=== PATIENT | male | born 1985 | race Two or more races ===

== ENCOUNTER 2016-04-25 08:23 | Emergency (ER) | payer BC ==
[2016-04-25] MEDS ORDERED: ASPIRIN 81 MG CHEW TABLET As Ordered ONE (09:08)
--- NOTE | 2016-04-25 09:50 | REP ---
Clinical: Chest pain . Comparison: None . Technique: PA and lateral. Findings: The mediastinum and cardiac silhouette are normal. The lung morales are clear and without acute consolidation, effusion, or pneumothorax. The skeletal structures are intact and normal. Impression: 1. No acute cardiopulmonary process. Signed by Emmanuel Serrano MD 04/25/2016 09:41 A
[2016-04-25 10:01] LABS: BASO % 0.7 % (0.0-1.0); EOS # 0.1 K/mm3 (0.0-0.50); EOS % 2.2 % (0.0-3.0); LARGE UNSTAINED CELL # 0.1 K/mm3 (0.0-0.4); LYMPH # 1.8 K/mm3 (1.5-4.5); LYMPH % 29.8 % (24.0-44.0); MEAN CORPUSCULAR HEMOGLOBIN 29.7 pg (27.0-33.0); MEAN CORPUSCULAR HGB CONC 33.5 g/dl (32.0-36.5); MEAN CORPUSCULAR VOLUME 88.4 fl (80.0-96.0); MONO # 0.5 K/mm3 (0.0-0.8); MONO % 8.4 % (0.0-5.0); NEUTROPHILS # 3.5 K/mm3 (1.8-7.7); NEUTROPHILS % 56.9 % (36.0-66.0); PLATELET COUNT, AUTOMATED 190 k/mm3 (150-450); RED CELL DISTRIBUTION WIDTH 12.3 % (11.5-14.5); WHITE BLOOD COUNT 6.1 K/mm3 (4.0-10.0)
[2016-04-25 10:02] LABS: ALBUMIN 3.8 GM/DL (3.2-5.2); ALBUMIN/GLOBULIN RATIO 1.15 (1.00-1.93); BILIRUBIN,DIRECT 0.2 MG/DL (0.0-0.2); BILIRUBIN,TOTAL 0.9 MG/DL (0.2-1.0); TOTAL PROTEIN 7.1 GM/DL (6.4-8.2)
[2016-04-25 10:03] LABS: ANION GAP 7 MEQ/L (8-16); BLOOD UREA NITROGEN 11 MG/DL (7-18); CALCIUM LEVEL 8.7 MG/DL (8.5-10.1); CARBON DIOXIDE LEVEL 28 MEQ/L (21-32); CHLORIDE LEVEL 107 MEQ/L (98-107); CREATININE FOR GFR 0.77 MG/DL (0.70-1.30); GLOMERULAR FILTRATION RATE > 60.0 (>60); GLUCOSE, FASTING 90 MG/DL (70-105); SODIUM LEVEL 142 MEQ/L (136-145)
--- NOTE | 2016-04-25 10:06 | REP ---
Clinical: Radiculopathy. Technique: AP, lateral, flexion/extension, swimmer's, bilateral oblique and open mouth views of the cervical spine. Findings: Alignment is maintained. No acute fracture / compression injury or subluxation. Vertebral bodies and disc spaces appear normal for age. Spinous processes are intact. Oblique views demonstrate patent neural foramen. Open mouth view demonstrates normal C1-C2 articulation and odontoid process. Impression: Normal cervical spine series. Signed by Emmanuel Serrano MD 04/25/2016 09:57 A
[2016-04-25] MEDS ORDERED: PANTOPRAZOLE 40MG INJ (PROTONIX) (C9113) As Ordered ONE (10:18)
--- NOTE | 2016-04-25 13:35 | EDDOCDS ---
Physician Documentation [facility] Name: Richi Gorman Age: 30 yrs Sex: Male : 1985 Arrival Date: 04/25/2016 Time: 08:23 Bed 15 Private MD: Brenna Collins L. Disposition: 04/25 13:07 Critical Care: Critical care not applicable. pc Disposition: 04/25/16 13:08 Discharged to Home/Self Care. Impression: Chest pain, unspecified. - Condition is Stable. - Discharge Instructions: Nonspecific Chest Pain. - Prescriptions for Protonix 40 mg Oral Tablet - take 1 tablet by ORAL route once daily; 30 tablet. - Medication Reconciliation, Local Pharmacy Hours, Work Release Form - 1 day form. - Follow up: Santiago Belle MD; When: Call to arrange an appointment; Reason: Further diagnostic work-up, To establish care. Follow up: Brenna Collins; When: Call to arrange an appointment; Reason: Continuance of care. - Problem is an ongoing problem. - Symptoms have improved. HPI: 09:05 This 30 yrs old Other Male presents to ER via Walkin/Carried/Asstd with complaints of pc Chest Pain. 09:05 The history is obtained from the patient. Symptoms began He has been having a pc tightening feeling in his throat and upper chest for 2 weeks, lasting from hours to full days. He does not describe any relation to exertion. He has symptoms at night as well as during the day. He denies any SOB or SOBOE, denies nausea or diaphoresis. Today, he awoke with chest and pressure radiating into his left arm. . The patient's known risk factors for coronary artery disease include: a family history of coronary artery disease. The patient has not recently seen a physician. Historical: - Allergies: PENICILLINS; Erythromycin; Rhinocort Aqua; SULFA (SULFONAMIDES); - Home Meds: 1. none - PMHx: none; - PSHx: Tubes in ears; - The history from nurses notes was reviewed: and I agree with what is documented. - Social history: Smoking status: Patient uses tobacco products, heavy tobacco smoker. No barriers to communication noted, The patient speaks fluent Nauruan, Speaks appropriately for age. - Family history: Pertinent for heart disease, hypertension, hypercholesterolemia. - : The pt / caregiver states he / she is not on anticoagulants. Home medication list is obtained from the patient. - Hospitalizations: : No recent hospitalization is reported. - Exposure Risk Screening:: None identified. - Immunization history:: All immunizations up-to-date. - Social history:: the patient is a non-smoker, the patient does not drink alcohol. ROS: 09:05 All systems are negative except as listed. The cardiovascular, respiratory, pc gastrointestinal and neurological components are also addressed in the HPI. Exam: 09:05 General Appearance: alert, no acute distress. pc 09:05 ENT: ear, nose and throat normal, pharynx normal. 09:05 Neck: supple, non-tender, no masses are appreciated, no carotid bruits. 09:05 Respiratory: no respiratory distress, normal breath sounds, chest non-tender. 09:05 Cardiovascular: regular pulse rate, regular heart rhythm, normal heart sounds, equal and full pulses bilaterally. 09:05 Abdomen: soft, non-tender, no organomegaly, normal bowel sounds. 09:05 Skin: skin color is normal, warm, dry. 09:05 Extremities: The extremities have a grossly normal appearance, are non-tender, without acute ROM abnormalities. 09:05 Neuro: alert, oriented to person, place and time, cranial nerves normal as tested, no motor deficits, no sensory deficits. 09:05 Psych: normal mood. Vital Signs: 08:31 BP 117 / 68 (auto/); ck1 08:33 Pulse 78 MON; Pulse Ox 98% ; ck1 08:37 BP 117 / 68; Pulse 77; Resp 18; Temp 96.8(T); Pulse Ox 98% on R/A; Weight 149.69 kg / ck1 330.01 lbs (R); Height 6 ft. 0 in. (182.88 cm); Pain 4/10; 08:55 BP 134 / 90 (auto/); ck1 08:55 Pulse 66 MON; Pulse Ox 97% ; ck1 09:01 BP 131 / 86 (auto/); ck1 09:01 Pulse 70 MON; Pulse Ox 97% ; ck1 09:16 BP 127 / 68 (auto/); ck1 09:16 Pulse 82 MON; Pulse Ox 97% ; ck1 09:32 BP 131 / 76 (auto/); ck1 09:32 Pulse 68 MON; Pulse Ox 98% ; ck1 09:46 BP 135 / 85 (auto/); ck1 09:46 Pulse 72 MON; Pulse Ox 97% ; ck1 10:01 Pulse 72 MON; Pulse Ox 97% ; ck1 10:01 BP 120 / 66 (auto/); ck1 10:16 BP 116 / 74 (auto/); ck1 10:16 Pulse 66 MON; Pulse Ox 96% ; ck1 10:31 BP 114 / 58 (auto/); ck1 10:31 Pulse 68 MON; Pulse Ox 98% ; ck1 11:01 BP 116 / 56 (auto/); ml6 11:01 Pulse 72 MON; Resp 16; Pulse Ox 97% on R/A; Pain 0/10; ml6 11:16 BP 114 / 55 (auto/); ml6 11:16 Pulse 66 MON; Resp 16; Pulse Ox 98% on R/A; ml6 11:31 BP 127 / 55 (auto/); ml6 11:31 Pulse 62 MON; Resp 16; Pulse Ox 96% on R/A; ml6 12:00 BP 131 / 68 (auto/); ml6 12:00 Pulse 72 MON; Resp 16; Pulse Ox 98% on R/A; ml6 12:16 BP 113 / 56 (auto/); ml6 12:16 Pulse 62 MON; Resp 16; Pulse Ox 98% on R/A; Pain 0/10; ml6 12:31 BP 115 / 60 (auto/); js13 12:31 Pulse 64 MON; Pulse Ox 98% ; js13 12:45 Pulse 68 MON; Pulse Ox 97% ; js13 12:46 BP 122 / 66 (auto/); js13 13:01 BP 122 / 58 (auto/); js13 13:01 Pulse 66 MON; Resp 16; Temp 97.1(O); Pulse Ox 96% on R/A; js13 08:37 Body Mass Index 44.76 (149.69 kg, 182.88 cm) ck1 MDM: 08:31 ECG WITH READING ER PHYS+CARDIAG ordered. EDMS 09:03 Aspirin Chewable Tablet 324 mg PO once ordered. pc 09:03 Dewaterer Operator/Pulse Ox/q 30 min VS ordered. pc 09:03 IV Saline Lock ordered. pc 09:03 Rhythm Strip to chart ordered. pc 09:04 Chest, 2 View (pa\E\lat) Ordered. EDMS 09:04 Basic Metabolic Profile Ordered. EDMS 09:04 CBC with Diff Ordered. EDMS 09:04 Cardiac Injury Profile Ordered. EDMS 09:04 Troponin Ordered. EDMS 09:04 Liver Profile Ordered. EDMS 09:04 Lipase Ordered. EDMS 09:05 Differential diagnosis: coronary artery disease esophagitis, gastroesophageal reflux pc disease (GERD), unstable angina, cervical radiculopathy. Plan: labs, EKG, meds, imaging. The patient was medicated with aspirin in the Emergency Department. 09:06 Spine, Cervical Ordered. EDMS 09:09 Test interpretation: EKG. pc 09:46 Financial registration complete. lg 10:16 Basic Metabolic Profile Reviewed. pc 10:16 CBC with Diff Reviewed. pc 10:16 Cardiac Injury Profile Reviewed. pc 10:16 Troponin Reviewed. pc 10:16 Liver Profile Reviewed. pc 10:16 Lipase Reviewed. pc 10:16 Chest, 2 View (pa\E\lat) Reviewed. pc 10:17 pantoprazole 40 mg IV at bolus once ordered. pc 10:17 Redraw CIP &Troponin (put time in details section) ordered. pc 10:17 Repeat EKG (put time details section) ordered. pc 10:29 Redraw CIP &Troponin (put time in details section) complete. deg 10:29 Repeat EKG (put time details section) complete. deg 10:30 CARDIAC MARKER PANEL Ordered. EDMS 10:31 ECG WITH READING ER PHYS ordered. EDMS 11:02 [facility] Payment Agreement was scanned into evolso and attached to record. lg 12:11 Test interpretation: EKG. pc 12:51 CARDIAC MARKER PANEL Reviewed. pc 12:51 Spine, Cervical Reviewed. pc 13:07 Data reviewed: old medical records, vital signs, nurses notes, EKG(s), lab test pc results, all radiology studies and available results. Test interpretation: LAB - all labs as ordered have been reviewed, interpreted and considered in the overall management of the clinical presentation; X-RAY - interpreted by Radiologist and personally reviewed, 2 view chest, no acute disease. The patient has been re-examined and re-evaluated. The clinical presentation did not require any ED treatment or interventions. Physician consultation: Dr. Santiago Belle MD was contacted at 13:07, regarding patient's condition, and advises the medications/treatment as provided. and agrees with the treatment provided and advises the discharge plans as outlined. Disposition: The historical points, examination findings, and any diagnostic results supporting the provided diagnosis, were discussed with the patient or legal guardian. The need for outpatient follow up with the provider listed on their discharge instructions was discussed. They were encouraged to return to [facility], or the nearest ED, if symptoms worsen/persist, or for any other questions/concerns. EC:09 Rate is 68 beats/min. Rhythm is regular. QRS is negative in lead aVF. MS interval is pc normal. QRS interval is normal. QT interval is normal. No Q waves. T waves are Normal. No ST changes noted. Clinical impression: Normal Sinus Rhythm and borderline LAD, Mod. IVCD, nonspecific ST depressions, no priors . 12:11 Rate is 73 beats/min. Rhythm is regular, Normal Sinus Rhythm. QRS [place] is Normal. MS pc interval is normal. QRS interval is normal. QT interval is normal. No Q waves. T waves are Normal. No ST changes noted. Clinical impression: Normal Sinus Rhythm. Administered Medications: 09:10 Drug: Aspirin 324 mg [aspirin 81 mg chewable tablet (4 tabs)] Route: PO; ck1 10:23 Drug: pantoprazole 40 mg [pantoprazole 40 mg intravenous solution] Route: IV; Rate: ck1 bolus; Site: right antecubital; Signatures: Dispatcher [employer] Burke Farias MD MD pc Murray, Denise, Material Hauler Unit deg Nila Gonsalves, Reg Reg lg Leesa Jones RN RN ck1 Parul PrajapatiRN RN [id number] The chart was reviewed and I authenticate all verbal orders and agree with the evaluation and treatment provided.Corrections: (The following items were deleted from the chart) 08:43 08:41 Family history Not pertinent, ck1 ck1 Attachments: 11:02 [facility] Payment Agreement lg MTDD
--- NOTE | 2016-04-25 13:35 | EDDOCDS ---
Nurse's Notes [facility] Name: Richi Gorman Age: 30 yrs Sex: Male : 1985 Arrival Date: 04/25/2016 Time: 08:23 Bed 15 Private MD: Brenna Collins L. Diagnosis: Chest pain, unspecified Presentation: 04/25 08:36 Presenting complaint: Patient states: Onset chest pain =yesterday at 1600. Reports pain ck1 radiates to neck and left arm. Aspirin was not taken prior to arrival. Adult Sepsis Screening: The patient does not have new or worsening altered mentation. Patient's respiratory rate is less than 22. Systolic blood pressure is greater than 100. Patient has a qSOFA score of 0- Negative Sepsis Screen. Suicide/Homicide risk assessment- the patient denies having any suicidal and/or homicidal ideations and does not present with any other emotional, behavioral or mental health complaints. 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 Transition of care: patient was not received from another setting of care. 08:36 Acuity: MAVIS Level 3 ck1 08:36 Method Of Arrival: Walkin/Carried/Asstd ck1 Triage Assessment: 08:39 General: Appears in no apparent distress, obese, Behavior is appropriate for age, ck1 cooperative. Pain: Location: left arm Pain currently is 4 out of 10 on a pain scale. HIV screening NA for this visit Offered previously. Neurological: Level of Consciousness is awake, alert, obeys commands, Oriented to person, place, time. Cardiovascular: Chest pain is described as vague, radiates to left arm(s) neck episodes "couple of hours" began yesterday at 1600. Respiratory: Respiratory effort is unlabored, Respiratory pattern is regular, symmetrical. GI: Abdomen is obese, Reports nausea. Derm: Skin is pink, warm & dry. Historical: - Allergies: PENICILLINS; Erythromycin; Rhinocort Aqua; SULFA (SULFONAMIDES); - Home Meds: 1. none - PMHx: none; - PSHx: Tubes in ears; - The history from nurses notes was reviewed: and I agree with what is documented. - Social history: Smoking status: Patient uses tobacco products, heavy tobacco smoker. No barriers to communication noted, The patient speaks fluent Malawian, Speaks appropriately for age. - Family history: Pertinent for heart disease, hypertension, hypercholesterolemia. - : The pt / caregiver states he / she is not on anticoagulants. Home medication list is obtained from the patient. - Hospitalizations: : No recent hospitalization is reported. - Exposure Risk Screening:: None identified. - Immunization history:: All immunizations up-to-date. - Social history:: the patient is a non-smoker, the patient does not drink alcohol. Screenin:41 Screening information is obtained from the patient. Fall risk: No risks identified. ck1 Assistance ADL's: requires no assistance with activities of daily living. Abuse/DV Screen: The patient / caregiver reports he/she is: not in a situation that causes fear, pain or injury. Nutritional screening: No deficits noted. Advance Directives: Currently, there is no health care proxy. home support is adequate. Assessment: 08:41 General: see triage note. ck1 09:35 General: Appears in no apparent distress, comfortable, Behavior is appropriate for age, ck1 cooperative, pleasant. Neurological: Level of Consciousness is awake, alert, obeys commands, Oriented to person, place, time. Cardiovascular: Rhythm is sinus rhythm. Respiratory: Respiratory effort is unlabored, Respiratory pattern is regular, symmetrical. GI: No deficits noted. Derm: Skin is pink, warm & dry. 10:23 General: Patient is resting quietly on stretcher. Reports "fullness" in chest and up ck1 into neck 4/10. No acute distress noted, respirations easy on RA. Patient aware of repeat lab work and EKG at noon. Mother at bedside, call light in reach. Will continue to monitor patient. 11:10 General: Appears in no apparent distress, comfortable, Behavior is appropriate for age, ml6 cooperative. Pain: Denies pain. Neurological: No deficits noted. Level of Consciousness is awake, alert, Oriented to person, place, time. Cardiovascular: No deficits noted. Capillary refill < 3 seconds is brisk in bilateral fingers toes Heart tones S1 S2 present Edema is absent. Pulses are all present. Rhythm is sinus rhythm. Respiratory: No deficits noted. Airway is patent Respiratory effort is even, unlabored, Respiratory pattern is regular, symmetrical, Breath sounds are clear bilaterally. GI: No deficits noted. Abdomen is flat, non- distended Bowel sounds present X 4 quads. 13:32 General: Appears in no apparent distress, comfortable, Behavior is appropriate for age, js13 cooperative. Pain: Denies pain. Neurological: Level of Consciousness is awake, alert, obeys commands. Cardiovascular: Rhythm is sinus rhythm Chest pain is denied. Respiratory: Airway is patent Respiratory effort is even, unlabored, Respiratory pattern is regular, symmetrical. Derm: Skin is pink, warm & dry. Vital Signs: 08:31 BP 117 / 68 (auto/); ck1 08:33 Pulse 78 MON; Pulse Ox 98% ; ck1 08:37 BP 117 / 68; Pulse 77; Resp 18; Temp 96.8(T); Pulse Ox 98% on R/A; Weight 149.69 kg ck1 (R); Height 6 ft. 0 in. (182.88 cm); Pain 4/10; 08:55 BP 134 / 90 (auto/); ck1 08:55 Pulse 66 MON; Pulse Ox 97% ; ck1 09:01 BP 131 / 86 (auto/); ck1 09:01 Pulse 70 MON; Pulse Ox 97% ; ck1 09:16 BP 127 / 68 (auto/); ck1 09:16 Pulse 82 MON; Pulse Ox 97% ; ck1 09:32 BP 131 / 76 (auto/); ck1 09:32 Pulse 68 MON; Pulse Ox 98% ; ck1 09:46 BP 135 / 85 (auto/); ck1 09:46 Pulse 72 MON; Pulse Ox 97% ; ck1 10:01 Pulse 72 MON; Pulse Ox 97% ; ck1 10:01 BP 120 / 66 (auto/); ck1 10:16 BP 116 / 74 (auto/); ck1 10:16 Pulse 66 MON; Pulse Ox 96% ; ck1 10:31 BP 114 / 58 (auto/); ck1 10:31 Pulse 68 MON; Pulse Ox 98% ; ck1 11:01 BP 116 / 56 (auto/); ml6 11:01 Pulse 72 MON; Resp 16; Pulse Ox 97% on R/A; Pain 0/10; ml6 11:16 BP 114 / 55 (auto/); ml6 11:16 Pulse 66 MON; Resp 16; Pulse Ox 98% on R/A; ml6 11:31 BP 127 / 55 (auto/); ml6 11:31 Pulse 62 MON; Resp 16; Pulse Ox 96% on R/A; ml6 12:00 BP 131 / 68 (auto/); ml6 12:00 Pulse 72 MON; Resp 16; Pulse Ox 98% on R/A; ml6 12:16 BP 113 / 56 (auto/); ml6 12:16 Pulse 62 MON; Resp 16; Pulse Ox 98% on R/A; Pain 0/10; ml6 12:31 BP 115 / 60 (auto/); js13 12:31 Pulse 64 MON; Pulse Ox 98% ; js13 12:45 Pulse 68 MON; Pulse Ox 97% ; js13 12:46 BP 122 / 66 (auto/); js13 13:01 BP 122 / 58 (auto/); js13 13:01 Pulse 66 MON; Resp 16; Temp 97.1(O); Pulse Ox 96% on R/A; js13 08:37 Body Mass Index 44.76 (149.69 kg, 182.88 cm) ck1 Vitals: 08:37 Log In Time: April 25, 2016 at 08:38. ck1 ED Course: 08:24 Patient visited by Nila Gonsalves Reg. lg 08:24 Brenna Collins is Private Physician. lg 08:24 Patient moved to Waiting lg 08:30 Patient moved to [facility] 08:34 EKG done. (by ED staff). Reviewed by Burke Boone MD. dem1 08:37 Triage Initiated ck1 08:39 Patient visited by Armando Eli. dem1 08:41 The patient / caregiver is instructed regarding the plan of care and ED course. Cardiac ck1 monitor on. Pulse ox on. NIBP on. 08:50 Burke Boone MD is Attending Physician. pc 08:57 Inserted saline lock: 18 gauge in right antecubital area and blood collected. The ck1 patient tolerated the procedure well. by Thom coke wheeler student. 09:02 Patient visited by Burke Boone MD. pc 09:05 Patient visited by Leesa Jones,GEORGI. ck1 09:05 Lipase Sent. ck1 09:05 Liver Profile Sent. ck1 09:05 Basic Metabolic Profile Sent. ck1 09:05 CBC with Diff Sent. ck1 09:05 Cardiac Injury Profile Sent. ck1 09:05 Troponin Sent. ck1 09:10 Patient visited by Leesa JonesGEORGI. ck1 09:35 Patient visited by Leesa Jones RN. ck1 10:03 Chest, 2 View (pa\\E\\lat) Returned. EDMS 10:06 Patient visited by Leesa Jones RN. ck1 10:23 Patient visited by Leesa Jones RN. ck1 10:49 Patient visited by Leesa Jones RN. ck1 10:49 Spine, Cervical Returned. EDMS 11:02 [facility] Payment Agreement was scanned into [employer] and attached to record. lg 11:13 Patient visited by Wilberto Burger RN. ml6 11:55 Patient visited by Wilberto Burger RN. ml6 11:57 EKG done. (by ED staff). Reviewed by Burke Boone MD. dem1 12:10 Patient visited by Armando Eli. dem1 12:58 Patient visited by Wilberto Burger RN. ml6 13:01 Discontinued IV lock intact, bleeding controlled, pressure dressing applied, No js13 redness/swelling at site. No procedures done that require assistance. 13:08 Santiago Belle MD is Referral Physician. pc 13:08 Brenna Collins is Referral Physician. pc Administered Medications: 09:10 Drug: Aspirin 324 mg [aspirin 81 mg chewable tablet (4 tabs)] Route: PO; ck1 10:23 Drug: pantoprazole 40 mg [pantoprazole 40 mg intravenous solution] Route: IV; Rate: ck1 bolus; Site: right antecubital; Order Results: Lab Order: Basic Metabolic Profile; [facility] 04/25/16 08:52 Test: GLUCOSE, FASTING; Value: 90; Range: 70-105; Units: MG/DL; Status: F Test: BLOOD UREA NITROGEN; Value: 11; Range: 7-18; Units: MG/DL; Status: F Test: CREATININE FOR GFR; Value: 0.77; Range: 0.70-1.30; Units: MG/DL; Status: F Test: GLOMERULAR FILTRATION RATE; Value: > 60.0; Range: >60; Status: F Test: SODIUM LEVEL; Value: 142; Range: 136-145; Units: MEQ/L; Status: F Test: POTASSIUM SERUM; Value: 4.0; Range: 3.5-5.1; Units: MEQ/L; Status: F Test: CHLORIDE LEVEL; Value: 107; Range: 98-107; Units: MEQ/L; Status: F Test: CARBON DIOXIDE LEVEL; Value: 28; Range: 21-32; Units: MEQ/L; Status: F Test: ANION GAP; Value: 7; Range: 8-16; Abnormal: Below low normal; Units: MEQ/L; Status: F Test: CALCIUM LEVEL; Value: 8.7; Range: 8.5-10.1; Units: MG/DL; Status: F Test Note: ; Units are mL/min/1.73 m2 Chronic Kidney Disease Staging per NKF: Stage I & II GFR >=60 Normal to Mildly Decreased Stage III GFR 30-59 Moderately Decreased Stage IV GFR 15-29 Severely Decreased Stage V GFR <15 Very Little GFR Left ESRD 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 <15 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 Lab Order: CBC with Diff; SPEC'M 04/25/16 08:52 Test: WHITE BLOOD COUNT; Value: 6.1; Range: 4.0-10.0; Units: K/mm3; Status: F Test: RED BLOOD COUNT; Value: 4.92; Range: 4.30-6.10; Units: M/mm3; Status: F Test: HEMOGLOBIN; Value: 14.6; Range: 14.0-18.0; Units: g/dl; Status: F Test: HEMATOCRIT; Value: 43.5; Range: 42.0-52.0; Units: %; Status: F Test: MEAN CORPUSCULAR VOLUME; Value: 88.4; Range: 80.0-96.0; Units: fl; Status: F Test: MEAN CORPUSCULAR HEMOGLOBIN; Value: 29.7; Range: 27.0-33.0; Units: pg; Status: F Test: MEAN CORPUSCULAR HGB CONC; Value: 33.5; Range: 32.0-36.5; Units: g/dl; Status: F Test: RED CELL DISTRIBUTION WIDTH; Value: 12.3; Range: 11.5-14.5; Units: %; Status: F Test: PLATELET COUNT, AUTOMATED; Value: 190; Range: 150-450; Units: k/mm3; Status: F Test: NEUTROPHILS %; Value: 56.9; Range: 36.0-66.0; Units: %; Status: F Test: LYMPH %; Value: 29.8; Range: 24.0-44.0; Units: %; Status: F Test: MONO %; Value: 8.4; Range: 0.0-5.0; Abnormal: Above high normal; Units: %; Status: F Test: EOS %; Value: 2.2; Range: 0.0-3.0; Units: %; Status: F Test: BASO %; Value: 0.7; Range: 0.0-1.0; Units: %; Status: F Test: LARGE UNSTAINED CELL %; Value: 2.0; Range: 0.0-4.0; Units: %; Status: F Test: NEUTROPHILS #; Value: 3.5; Range: 1.8-7.7; Units: K/mm3; Status: F Test: LYMPH #; Value: 1.8; Range: 1.5-4.5; Units: K/mm3; Status: F Test: MONO #; Value: 0.5; Range: 0.0-0.8; Units: K/mm3; Status: F Test: EOS #; Value: 0.1; Range: 0.0-0.50; Units: K/mm3; Status: F Test: BASO #; Value: 0.0; Range: 0.0-0.2; Units: K/mm3; Status: F Test: LARGE UNSTAINED CELL #; Value: 0.1; Range: 0.0-0.4; Units: K/mm3; Status: F Lab Order: Cardiac Injury Profile; SPEC'M 04/25/16 08:52 Test: CPK CREATINE PHOSPHOKINASE; Value: 119; Range: 39-308; Units: U/L; Status: F Test: CK-MB VALUE MASS; Value: 1.0; Range: 0.0-3.6; Units: NG/ML; Status: F Test: MB/CK RELATIVE INDEX; Value: 0.84; Range: < OR =4; Status: F Test Note: ; DIAGNOSIS CRITERIA MMB ng/ml Relative Index (RI) NON-AMI < or = 5 N/A JIMENEZ ZONE > 5 < or = 4 AMI > 5 > 4 Lab Order: Troponin; SPEC'M 04/25/16 08:52 Test: TROPONIN I; Value: < 0.02; Range: < 0.10; Units: NG/ML; Status: F Test Note: ; Troponin I Reference Interval for [facility] LOCI: 99th Percentile= 0.00-0.045 ng/ml Risk Stratification: <= 0.10 ng/ml Decreased Risk for Adverse Clinical Events. 0.10-1.50 ng/ml Increased Risk for Adverse Clinical Events. Evaluation of additional criterion and/or repeat testing in 2-6 hours is suggested to rule out myocardial damage. >= 1.50 ng/ml Indicative of Myocardial Injury. Lab Order: Liver Profile; [facility] 04/25/16 08:52 Test: AST/SGOT; Value: 20; Range: 15-37; Units: U/L; Status: F Test: ALT/SGPT; Value: 39; Range: 12-78; Units: U/L; Status: F Test: ALKALINE PHOSPHATASE; Value: 64; Range: 45-117; Units: U/L; Status: F Test: BILIRUBIN,TOTAL; Value: 0.9; Range: 0.2-1.0; Units: MG/DL; Status: F Test: BILIRUBIN,DIRECT; Value: 0.2; Range: 0.0-0.2; Units: MG/DL; Status: F Test: TOTAL PROTEIN; Value: 7.1; Range: 6.4-8.2; Units: GM/DL; Status: F Test: ALBUMIN; Value: 3.8; Range: 3.2-5.2; Units: GM/DL; Status: F Test: ALBUMIN/GLOBULIN RATIO; Value: 1.15; Range: 1.00-1.93; Status: F Lab Order: Lipase; [facility] 04/25/16 08:52 Test: LIPASE; Value: 165; Range: 73-393; Units: U/L; Status: F Lab Order: CARDIAC MARKER PANEL; [facility] 04/25/16 12:03 Test: CPK CREATINE PHOSPHOKINASE; Value: 107; Range: 39-308; Units: U/L; Status: F Test: CK-MB VALUE MASS; Value: 1.1; Range: 0.0-3.6; Units: NG/ML; Status: F Test: MB/CK RELATIVE INDEX; Value: 1.02; Range: < OR =4; Status: F Test: TROPONIN I; Value: < 0.02; Range: < 0.10; Units: NG/ML; Status: F Test Note: ; DIAGNOSIS CRITERIA MMB ng/ml Relative Index (RI) NON-AMI < or = 5 N/A JIMENEZ ZONE > 5 < or = 4 AMI > 5 > 4 Radiology Order: Chest, 2 View (pa\\E\\lat) Test: Chest, 2 View (pa\\E\\lat) REASON FOR EXAMINATION: Chest Pain; Clinical: Chest pain .; ; Comparison: None .; ; Technique: PA and lateral.; ; Findings:; The mediastinum and cardiac silhouette are normal. The lung morales are clear and; without acute consolidation, effusion, or pneumothorax. The skeletal structures; are intact and normal.; ; Impression:; 1. No acute cardiopulmonary process.; ; ; Signed by; Emmanuel Serrano MD 04/25/2016 09:41 A; Radiology Order: Spine, Cervical Test: Spine, Cervical REASON FOR EXAMINATION: radiculopathy; Clinical: Radiculopathy.; ; Technique: AP, lateral, flexion/extension, swimmer's, bilateral oblique and open; mouth views of the cervical spine.; ; Findings:; Alignment is maintained. No acute fracture / compression injury or subluxation.; Vertebral bodies and disc spaces appear normal for age. Spinous processes are; intact. Oblique views demonstrate patent neural foramen. Open mouth view; demonstrates normal C1-C2 articulation and odontoid process.; ; Impression:; Normal cervical spine series.; ; ; Signed by; Emmanuel Serrano MD 04/25/2016 09:57 A; Outcome: 13:01 Discharge Assessment: Patient awake, alert and oriented x 3. No cognitive and/or js13 functional deficits noted. Patient verbalized understanding of disposition instructions. patient administered narcotics - no. The following High Risk Discharge criteria are identified: None. Discharged to home ambulatory. Condition: stable. Discharge instructions given to patient, Instructed on discharge instructions, follow up and referral plans. medication usage, Demonstrated understanding of instructions, medications, Pt was receptive of discharge instructions/ teaching. Prescriptions given X 1. No special radiology studies were completed. Property :Personal belongings accompany Pt. 13:08 Discharge ordered by Provider. pc 13:34 Patient left the ED. js13 Signatures: Dispatcher [employer] EDBurke Cage MD MD pc Sleeman, Kacey, RN RN Nila Leahy, Leesa Bauer lgRN RN ck1 Wilberto Burger RN RN ml6 Armando Eli Jennifer, RN RN js13 Corrections: (The following items were deleted from the chart) 08:43 08:41 Family history Not pertinent, ck ck1 MTDD
--- NOTE | 2016-04-26 15:09 | ECGEPIP ---
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
--- NOTE | 2016-04-26 15:13 | ECGEPIP ---
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
--- NOTE | 2016-04-27 14:36 | EDDOCDS ---
Nurse's Notes [facility] Name: Ad Gorman Age: 30 yrs Sex: Male : 1985 Arrival Date: 04/25/2016 Time: 08:23 Bed 15 Private MD: Brenna Collins L. Diagnosis: Chest pain, unspecified Presentation: 04/25 08:36 Presenting complaint: Patient states: Onset chest pain =yesterday at 1600. Reports pain ck1 radiates to neck and left arm. Aspirin was not taken prior to arrival. Adult Sepsis Screening: The patient does not have new or worsening altered mentation. Patient's respiratory rate is less than 22. Systolic blood pressure is greater than 100. Patient has a qSOFA score of 0- Negative Sepsis Screen. Suicide/Homicide risk assessment- the patient denies having any suicidal and/or homicidal ideations and does not present with any other emotional, behavioral or mental health complaints. 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 Transition of care: patient was not received from another setting of care. 08:36 Acuity: MAVIS Level 3 ck1 08:36 Method Of Arrival: Walkin/Carried/Asstd ck1 Triage Assessment: 08:39 General: Appears in no apparent distress, obese, Behavior is appropriate for age, ck1 cooperative. Pain: Location: left arm Pain currently is 4 out of 10 on a pain scale. HIV screening NA for this visit Offered previously. Neurological: Level of Consciousness is awake, alert, obeys commands, Oriented to person, place, time. Cardiovascular: Chest pain is described as vague, radiates to left arm(s) neck episodes "couple of hours" began yesterday at 1600. Respiratory: Respiratory effort is unlabored, Respiratory pattern is regular, symmetrical. GI: Abdomen is obese, Reports nausea. Derm: Skin is pink, warm & dry. Historical: - Allergies: PENICILLINS; Erythromycin; Rhinocort Aqua; SULFA (SULFONAMIDES); - Home Meds: 1. none - PMHx: none; - PSHx: Tubes in ears; - The history from nurses notes was reviewed: and I agree with what is documented. - Social history: Smoking status: Patient uses tobacco products, heavy tobacco smoker. No barriers to communication noted, The patient speaks fluent Spanish, Speaks appropriately for age. - Family history: Pertinent for heart disease, hypertension, hypercholesterolemia. - : The pt / caregiver states he / she is not on anticoagulants. Home medication list is obtained from the patient. - Hospitalizations: : No recent hospitalization is reported. - Exposure Risk Screening:: None identified. - Immunization history:: All immunizations up-to-date. - Social history:: the patient is a non-smoker, the patient does not drink alcohol. Screenin:41 Screening information is obtained from the patient. Fall risk: No risks identified. ck1 Assistance ADL's: requires no assistance with activities of daily living. Abuse/DV Screen: The patient / caregiver reports he/she is: not in a situation that causes fear, pain or injury. Nutritional screening: No deficits noted. Advance Directives: Currently, there is no health care proxy. home support is adequate. Assessment: 08:41 General: see triage note. ck1 09:35 General: Appears in no apparent distress, comfortable, Behavior is appropriate for age, ck1 cooperative, pleasant. Neurological: Level of Consciousness is awake, alert, obeys commands, Oriented to person, place, time. Cardiovascular: Rhythm is sinus rhythm. Respiratory: Respiratory effort is unlabored, Respiratory pattern is regular, symmetrical. GI: No deficits noted. Derm: Skin is pink, warm & dry. 10:23 General: Patient is resting quietly on stretcher. Reports "fullness" in chest and up ck1 into neck 4/10. No acute distress noted, respirations easy on RA. Patient aware of repeat lab work and EKG at noon. Mother at bedside, call light in reach. Will continue to monitor patient. 11:10 General: Appears in no apparent distress, comfortable, Behavior is appropriate for age, ml6 cooperative. Pain: Denies pain. Neurological: No deficits noted. Level of Consciousness is awake, alert, Oriented to person, place, time. Cardiovascular: No deficits noted. Capillary refill < 3 seconds is brisk in bilateral fingers toes Heart tones S1 S2 present Edema is absent. Pulses are all present. Rhythm is sinus rhythm. Respiratory: No deficits noted. Airway is patent Respiratory effort is even, unlabored, Respiratory pattern is regular, symmetrical, Breath sounds are clear bilaterally. GI: No deficits noted. Abdomen is flat, non- distended Bowel sounds present X 4 quads. 13:32 General: Appears in no apparent distress, comfortable, Behavior is appropriate for age, js13 cooperative. Pain: Denies pain. Neurological: Level of Consciousness is awake, alert, obeys commands. Cardiovascular: Rhythm is sinus rhythm Chest pain is denied. Respiratory: Airway is patent Respiratory effort is even, unlabored, Respiratory pattern is regular, symmetrical. Derm: Skin is pink, warm & dry. Vital Signs: 08:31 BP 117 / 68 (auto/); ck1 08:33 Pulse 78 MON; Pulse Ox 98% ; ck1 08:37 BP 117 / 68; Pulse 77; Resp 18; Temp 96.8(T); Pulse Ox 98% on R/A; Weight 149.69 kg ck1 (R); Height 6 ft. 0 in. (182.88 cm); Pain 4/10; 08:55 BP 134 / 90 (auto/); ck1 08:55 Pulse 66 MON; Pulse Ox 97% ; ck1 09:01 BP 131 / 86 (auto/); ck1 09:01 Pulse 70 MON; Pulse Ox 97% ; ck1 09:16 BP 127 / 68 (auto/); ck1 09:16 Pulse 82 MON; Pulse Ox 97% ; ck1 09:32 BP 131 / 76 (auto/); ck1 09:32 Pulse 68 MON; Pulse Ox 98% ; ck1 09:46 BP 135 / 85 (auto/); ck1 09:46 Pulse 72 MON; Pulse Ox 97% ; ck1 10:01 Pulse 72 MON; Pulse Ox 97% ; ck1 10:01 BP 120 / 66 (auto/); ck1 10:16 BP 116 / 74 (auto/); ck1 10:16 Pulse 66 MON; Pulse Ox 96% ; ck1 10:31 BP 114 / 58 (auto/); ck1 10:31 Pulse 68 MON; Pulse Ox 98% ; ck1 11:01 BP 116 / 56 (auto/); ml6 11:01 Pulse 72 MON; Resp 16; Pulse Ox 97% on R/A; Pain 0/10; ml6 11:16 BP 114 / 55 (auto/); ml6 11:16 Pulse 66 MON; Resp 16; Pulse Ox 98% on R/A; ml6 11:31 BP 127 / 55 (auto/); ml6 11:31 Pulse 62 MON; Resp 16; Pulse Ox 96% on R/A; ml6 12:00 BP 131 / 68 (auto/); ml6 12:00 Pulse 72 MON; Resp 16; Pulse Ox 98% on R/A; ml6 12:16 BP 113 / 56 (auto/); ml6 12:16 Pulse 62 MON; Resp 16; Pulse Ox 98% on R/A; Pain 0/10; ml6 12:31 BP 115 / 60 (auto/); js13 12:31 Pulse 64 MON; Pulse Ox 98% ; js13 12:45 Pulse 68 MON; Pulse Ox 97% ; js13 12:46 BP 122 / 66 (auto/); js13 13:01 BP 122 / 58 (auto/); js13 13:01 Pulse 66 MON; Resp 16; Temp 97.1(O); Pulse Ox 96% on R/A; js13 08:37 Body Mass Index 44.76 (149.69 kg, 182.88 cm) ck1 Vitals: 08:37 Log In Time: April 25, 2016 at 08:38. ck1 ED Course: 08:24 Patient visited by Nila Gonsalves Reg. lg 08:24 Brenna Collins is Private Physician. lg 08:24 Patient moved to Waiting lg 08:30 Patient moved to [facility] 08:34 EKG done. (by ED staff). Reviewed by Burke Boone MD. dem1 08:37 Triage Initiated ck1 08:39 Patient visited by Armando Eli. dem1 08:41 The patient / caregiver is instructed regarding the plan of care and ED course. Cardiac ck1 monitor on. Pulse ox on. NIBP on. 08:50 Burke Boone MD is Attending Physician. pc 08:57 Inserted saline lock: 18 gauge in right antecubital area and blood collected. The ck1 patient tolerated the procedure well. 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 09:02 Patient visited by Burke Boone MD. pc 09:05 Patient visited by Leesa Jones,GEORGI. ck1 09:05 Lipase Sent. ck1 09:05 Liver Profile Sent. ck1 09:05 Basic Metabolic Profile Sent. ck1 09:05 CBC with Diff Sent. ck1 09:05 Cardiac Injury Profile Sent. ck1 09:05 Troponin Sent. ck1 09:10 Patient visited by Leesa JonesGEORGI. ck1 09:35 Patient visited by Leesa Jones RN. ck1 10:03 Chest, 2 View (pa\\E\\lat) Returned. EDMS 10:06 Patient visited by Leesa Jones RN. ck1 10:23 Patient visited by Leesa Jones RN. ck1 10:49 Patient visited by Leesa Jones RN. ck1 10:49 Spine, Cervical Returned. EDMS 11:02 [facility] Payment Agreement was scanned into [employer] and attached to record. lg 11:13 Patient visited by Wilberto Burger RN. ml6 11:55 Patient visited by Wilberto Burger RN. ml6 11:57 EKG done. (by ED staff). Reviewed by Burke Boone MD. dem1 12:10 Patient visited by Armando Eli. dem1 12:58 Patient visited by Wilberto Burger RN. ml6 13:01 Discontinued IV lock intact, bleeding controlled, pressure dressing applied, No js13 redness/swelling at site. No procedures done that require assistance. 13:08 Santiago Belle MD is Referral Physician. pc 13:08 Brenna Collins is Referral Physician. pc 04/26 15:14 EKG-ADULT Returned. EDMS 15:14 ECG WITH READING ER PHYS Returned. EDMS Administered Medications: 04/25 09:10 Drug: Aspirin 324 mg [aspirin 81 mg chewable tablet (4 tabs)] Route: PO; ck1 10:23 Drug: pantoprazole 40 mg [pantoprazole 40 mg intravenous solution] Route: IV; Rate: ck1 bolus; Site: right antecubital; Order Results: Lab Order: Basic Metabolic Profile; SPEC'M 04/25/16 08:52 Test: GLUCOSE, FASTING; Value: 90; Range: 70-105; Units: MG/DL; Status: F Test: BLOOD UREA NITROGEN; Value: 11; Range: 7-18; Units: MG/DL; Status: F Test: CREATININE FOR GFR; Value: 0.77; Range: 0.70-1.30; Units: MG/DL; Status: F Test: GLOMERULAR FILTRATION RATE; Value: > 60.0; Range: >60; Status: F Test: SODIUM LEVEL; Value: 142; Range: 136-145; Units: MEQ/L; Status: F Test: POTASSIUM SERUM; Value: 4.0; Range: 3.5-5.1; Units: MEQ/L; Status: F Test: CHLORIDE LEVEL; Value: 107; Range: 98-107; Units: MEQ/L; Status: F Test: CARBON DIOXIDE LEVEL; Value: 28; Range: 21-32; Units: MEQ/L; Status: F Test: ANION GAP; Value: 7; Range: 8-16; Abnormal: Below low normal; Units: MEQ/L; Status: F Test: CALCIUM LEVEL; Value: 8.7; Range: 8.5-10.1; Units: MG/DL; Status: F Test Note: ; Units are mL/min/1.73 m2 Chronic Kidney Disease Staging per NKF: Stage I & II GFR >=60 Normal to Mildly Decreased Stage III GFR 30-59 Moderately Decreased Stage IV GFR 15-29 Severely Decreased Stage V GFR <15 Very Little GFR Left ESRD GFR <15 on BULB GROWER Lab Order: CBC with Diff; SPEC'M 04/25/16 08:52 Test: WHITE BLOOD COUNT; Value: 6.1; Range: 4.0-10.0; Units: K/mm3; Status: F Test: RED BLOOD COUNT; Value: 4.92; Range: 4.30-6.10; Units: M/mm3; Status: F Test: HEMOGLOBIN; Value: 14.6; Range: 14.0-18.0; Units: g/dl; Status: F Test: HEMATOCRIT; Value: 43.5; Range: 42.0-52.0; Units: %; Status: F Test: MEAN CORPUSCULAR VOLUME; Value: 88.4; Range: 80.0-96.0; Units: fl; Status: F Test: MEAN CORPUSCULAR HEMOGLOBIN; Value: 29.7; Range: 27.0-33.0; Units: pg; Status: F Test: MEAN CORPUSCULAR HGB CONC; Value: 33.5; Range: 32.0-36.5; Units: g/dl; Status: F Test: RED CELL DISTRIBUTION WIDTH; Value: 12.3; Range: 11.5-14.5; Units: %; Status: F Test: PLATELET COUNT, AUTOMATED; Value: 190; Range: 150-450; Units: k/mm3; Status: F Test: NEUTROPHILS %; Value: 56.9; Range: 36.0-66.0; Units: %; Status: F Test: LYMPH %; Value: 29.8; Range: 24.0-44.0; Units: %; Status: F Test: MONO %; Value: 8.4; Range: 0.0-5.0; Abnormal: Above high normal; Units: %; Status: F Test: EOS %; Value: 2.2; Range: 0.0-3.0; Units: %; Status: F Test: BASO %; Value: 0.7; Range: 0.0-1.0; Units: %; Status: F Test: LARGE UNSTAINED CELL %; Value: 2.0; Range: 0.0-4.0; Units: %; Status: F Test: NEUTROPHILS #; Value: 3.5; Range: 1.8-7.7; Units: K/mm3; Status: F Test: LYMPH #; Value: 1.8; Range: 1.5-4.5; Units: K/mm3; Status: F Test: MONO #; Value: 0.5; Range: 0.0-0.8; Units: K/mm3; Status: F Test: EOS #; Value: 0.1; Range: 0.0-0.50; Units: K/mm3; Status: F Test: BASO #; Value: 0.0; Range: 0.0-0.2; Units: K/mm3; Status: F Test: LARGE UNSTAINED CELL #; Value: 0.1; Range: 0.0-0.4; Units: K/mm3; Status: F Lab Order: Cardiac Injury Profile; SPEC'M 04/25/16 08:52 Test: CPK CREATINE PHOSPHOKINASE; Value: 119; Range: 39-308; Units: U/L; Status: F Test: CK-MB VALUE MASS; Value: 1.0; Range: 0.0-3.6; Units: NG/ML; Status: F Test: MB/CK RELATIVE INDEX; Value: 0.84; Range: < OR =4; Status: F Test Note: ; DIAGNOSIS CRITERIA MMB ng/ml Relative Index (RI) NON-AMI < or = 5 N/A JIMENEZ ZONE > 5 < or = 4 AMI > 5 > 4 Lab Order: Troponin; [facility] 04/25/16 08:52 Test: TROPONIN I; Value: < 0.02; Range: < 0.10; Units: NG/ML; Status: F Test Note: ; Troponin I Reference Interval for [employer] [place] LOCI: 99th Percentile= 0.00-0.045 ng/ml Risk Stratification: <= 0.10 ng/ml Decreased Risk for Adverse Clinical Events. 0.10-1.50 ng/ml Increased Risk for Adverse Clinical Events. Evaluation of additional criterion and/or repeat testing in 2-6 hours is suggested to rule out myocardial damage. >= 1.50 ng/ml Indicative of Myocardial Injury. Lab Order: Liver Profile; [facility] 04/25/16 08:52 Test: AST/SGOT; Value: 20; Range: 15-37; Units: U/L; Status: F Test: ALT/SGPT; Value: 39; Range: 12-78; Units: U/L; Status: F Test: ALKALINE PHOSPHATASE; Value: 64; Range: 45-117; Units: U/L; Status: F Test: BILIRUBIN,TOTAL; Value: 0.9; Range: 0.2-1.0; Units: MG/DL; Status: F Test: BILIRUBIN,DIRECT; Value: 0.2; Range: 0.0-0.2; Units: MG/DL; Status: F Test: TOTAL PROTEIN; Value: 7.1; Range: 6.4-8.2; Units: GM/DL; Status: F Test: ALBUMIN; Value: 3.8; Range: 3.2-5.2; Units: GM/DL; Status: F Test: ALBUMIN/GLOBULIN RATIO; Value: 1.15; Range: 1.00-1.93; Status: F Lab Order: Lipase; [facility] 04/25/16 08:52 Test: LIPASE; Value: 165; Range: 73-393; Units: U/L; Status: F Lab Order: CARDIAC MARKER PANEL; [facility] 04/25/16 12:03 Test: CPK CREATINE PHOSPHOKINASE; Value: 107; Range: 39-308; Units: U/L; Status: F Test: CK-MB VALUE MASS; Value: 1.1; Range: 0.0-3.6; Units: NG/ML; Status: F Test: MB/CK RELATIVE INDEX; Value: 1.02; Range: < OR =4; Status: F Test: TROPONIN I; Value: < 0.02; Range: < 0.10; Units: NG/ML; Status: F Test Note: ; DIAGNOSIS CRITERIA MMB ng/ml Relative Index (RI) NON-AMI < or = 5 N/A JIMENEZ ZONE > 5 < or = 4 AMI > 5 > 4 Radiology Order: EKG-ADULT Test: EKG-ADULT REASON FOR EXAMINATION: Chest Pain; Stationary ECG Study; [facility] - ED; ; Test Date: 2016-04-25; Pat Name: AD GORMAN Department:; Room: -; Gender: M 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; : 1985 Requested By: Burke Ahumada; Order Number: [id number] Reading MD: Estefania Ceron; Measurements; Intervals [place]; Rate: 68 P: 43; AR: 129 QRS: -22; QRSD: 118 T: 61; QT: 400; QTc: 425; Interpretive Statements; SINUS RHYTHM; BORDERLINE LEFT AXIS DEVIATION; MODERATE INTRAVENTRICULAR CONDUCTION DELAY; MINIMAL ST DEPRESSION; NO PRIOR FOR COMPARISON; Electronically Signed On 04-26-2016 15:09:25 EST by Estefania Ceron; Radiology Order: Chest, 2 View (pa\\E\\lat) Test: Chest, 2 View (pa\\E\\lat) REASON FOR EXAMINATION: Chest Pain; Clinical: Chest pain .; ; Comparison: None .; ; Technique: PA and lateral.; ; Findings:; The mediastinum and cardiac silhouette are normal. The lung morales are clear and; without acute consolidation, effusion, or pneumothorax. The skeletal structures; are intact and normal.; ; Impression:; 1. No acute cardiopulmonary process.; ; ; Signed by; Emmanuel Serrano MD 04/25/2016 09:41 A; Radiology Order: Spine, Cervical Test: Spine, Cervical REASON FOR EXAMINATION: radiculopathy; Clinical: Radiculopathy.; ; Technique: AP, lateral, flexion/extension, swimmer's, bilateral oblique and open; mouth views of the cervical spine.; ; Findings:; Alignment is maintained. No acute fracture / compression injury or subluxation.; Vertebral bodies and disc spaces appear normal for age. Spinous processes are; intact. Oblique views demonstrate patent neural foramen. Open mouth view; demonstrates normal C1-C2 articulation and odontoid process.; ; Impression:; Normal cervical spine series.; ; ; Signed by; Emmanuel Serrano MD 04/25/2016 09:57 A; Outcome: 13:01 Discharge Assessment: Patient awake, alert and oriented x 3. No cognitive and/or js13 functional deficits noted. Patient verbalized understanding of disposition instructions. patient administered narcotics - no. The following High Risk Discharge criteria are identified: None. Discharged to home ambulatory. Condition: stable. Discharge instructions given to patient, Instructed on discharge instructions, follow up and referral plans. medication usage, Demonstrated understanding of instructions, medications, Pt was receptive of discharge instructions/ teaching. Prescriptions given X 1. No special radiology studies were completed. Property :Personal belongings accompany Pt. 13:08 Discharge ordered by Provider. 13:34 Patient left the ED. js13 Signatures: Dispatcher [employer] EDBurke Cage MD MD pc Sleeman, Kacey, RN RN Nila Leahy, Reg Reg Leesa YanesRN RN ck1 Wilberto Burger, RN RN Armando Espinosa Jennifer,RN RN js13 Corrections: (The following items were deleted from the chart) 08:43 08:41 Family history Not pertinent, ck1 ck1 Chart Complete MTDD
--- NOTE | 2016-04-27 14:36 | EDDOCDS ---
Physician Documentation [facility] Name: Richi Gorman Age: 30 yrs Sex: Male : 1985 Arrival Date: 04/25/2016 Time: 08:23 Bed 15 Private MD: Brenna Collins L. Disposition: 04/25 13:07 Critical Care: Critical care not applicable. pc Disposition: 04/25/16 13:08 Discharged to Home/Self Care. Impression: Chest pain, unspecified. - Condition is Stable. - Discharge Instructions: Nonspecific Chest Pain. - Prescriptions for Protonix 40 mg Oral Tablet - take 1 tablet by ORAL route once daily; 30 tablet. - Medication Reconciliation, Local Pharmacy Hours, Work Release Form - 1 day form. - Follow up: Santiago Belle MD; When: Call to arrange an appointment; Reason: Further diagnostic work-up, To establish care. Follow up: Brenna Collins; When: Call to arrange an appointment; Reason: Continuance of care. - Problem is an ongoing problem. - Symptoms have improved. HPI: 09:05 This 30 yrs old Other Male presents to ER via Walkin/Carried/Asstd with complaints of pc Chest Pain. 09:05 The history is obtained from the patient. Symptoms began He has been having a pc tightening feeling in his throat and upper chest for 2 weeks, lasting from hours to full days. He does not describe any relation to exertion. He has symptoms at night as well as during the day. He denies any SOB or SOBOE, denies nausea or diaphoresis. Today, he awoke with chest and pressure radiating into his left arm. . The patient's known risk factors for coronary artery disease include: a family history of coronary artery disease. The patient has not recently seen a physician. Historical: - Allergies: PENICILLINS; Erythromycin; Rhinocort Aqua; SULFA (SULFONAMIDES); - Home Meds: 1. none - PMHx: none; - PSHx: Tubes in ears; - The history from nurses notes was reviewed: and I agree with what is documented. - Social history: Smoking status: Patient uses tobacco products, heavy tobacco smoker. No barriers to communication noted, The patient speaks fluent Kuwaiti, Speaks appropriately for age. - Family history: Pertinent for heart disease, hypertension, hypercholesterolemia. - : The pt / caregiver states he / she is not on anticoagulants. Home medication list is obtained from the patient. - Hospitalizations: : No recent hospitalization is reported. - Exposure Risk Screening:: None identified. - Immunization history:: All immunizations up-to-date. - Social history:: the patient is a non-smoker, the patient does not drink alcohol. ROS: 09:05 All systems are negative except as listed. The cardiovascular, respiratory, pc gastrointestinal and neurological components are also addressed in the HPI. Exam: 09:05 General Appearance: alert, no acute distress. pc 09:05 ENT: ear, nose and throat normal, pharynx normal. 09:05 Neck: supple, non-tender, no masses are appreciated, no carotid bruits. 09:05 Respiratory: no respiratory distress, normal breath sounds, chest non-tender. 09:05 Cardiovascular: regular pulse rate, regular heart rhythm, normal heart sounds, equal and full pulses bilaterally. 09:05 Abdomen: soft, non-tender, no organomegaly, normal bowel sounds. 09:05 Skin: skin color is normal, warm, dry. 09:05 Extremities: The extremities have a grossly normal appearance, are non-tender, without acute ROM abnormalities. 09:05 Neuro: alert, oriented to person, place and time, cranial nerves normal as tested, no motor deficits, no sensory deficits. 09:05 Psych: normal mood. Vital Signs: 08:31 BP 117 / 68 (auto/); ck1 08:33 Pulse 78 MON; Pulse Ox 98% ; ck1 08:37 BP 117 / 68; Pulse 77; Resp 18; Temp 96.8(T); Pulse Ox 98% on R/A; Weight 149.69 kg / ck1 330.01 lbs (R); Height 6 ft. 0 in. (182.88 cm); Pain 4/10; 08:55 BP 134 / 90 (auto/); ck1 08:55 Pulse 66 MON; Pulse Ox 97% ; ck1 09:01 BP 131 / 86 (auto/); ck1 09:01 Pulse 70 MON; Pulse Ox 97% ; ck1 09:16 BP 127 / 68 (auto/); ck1 09:16 Pulse 82 MON; Pulse Ox 97% ; ck1 09:32 BP 131 / 76 (auto/); ck1 09:32 Pulse 68 MON; Pulse Ox 98% ; ck1 09:46 BP 135 / 85 (auto/); ck1 09:46 Pulse 72 MON; Pulse Ox 97% ; ck1 10:01 Pulse 72 MON; Pulse Ox 97% ; ck1 10:01 BP 120 / 66 (auto/); ck1 10:16 BP 116 / 74 (auto/); ck1 10:16 Pulse 66 MON; Pulse Ox 96% ; ck1 10:31 BP 114 / 58 (auto/); ck1 10:31 Pulse 68 MON; Pulse Ox 98% ; ck1 11:01 BP 116 / 56 (auto/); ml6 11:01 Pulse 72 MON; Resp 16; Pulse Ox 97% on R/A; Pain 0/10; ml6 11:16 BP 114 / 55 (auto/); ml6 11:16 Pulse 66 MON; Resp 16; Pulse Ox 98% on R/A; ml6 11:31 BP 127 / 55 (auto/); ml6 11:31 Pulse 62 MON; Resp 16; Pulse Ox 96% on R/A; ml6 12:00 BP 131 / 68 (auto/); ml6 12:00 Pulse 72 MON; Resp 16; Pulse Ox 98% on R/A; ml6 12:16 BP 113 / 56 (auto/); ml6 12:16 Pulse 62 MON; Resp 16; Pulse Ox 98% on R/A; Pain 0/10; ml6 12:31 BP 115 / 60 (auto/); js13 12:31 Pulse 64 MON; Pulse Ox 98% ; js13 12:45 Pulse 68 MON; Pulse Ox 97% ; js13 12:46 BP 122 / 66 (auto/); js13 13:01 BP 122 / 58 (auto/); js13 13:01 Pulse 66 MON; Resp 16; Temp 97.1(O); Pulse Ox 96% on R/A; js13 08:37 Body Mass Index 44.76 (149.69 kg, 182.88 cm) ck1 MDM: 08:31 ECG WITH READING ER PHYS+CARDIAG ordered. EDMS 09:03 Aspirin Chewable Tablet 324 mg PO once ordered. pc 09:03 Speech Language Therapist/Pulse Ox/q 30 min VS ordered. pc 09:03 IV Saline Lock ordered. pc 09:03 Rhythm Strip to chart ordered. pc 09:04 Chest, 2 View (pa\E\lat) Ordered. EDMS 09:04 Basic Metabolic Profile Ordered. EDMS 09:04 CBC with Diff Ordered. EDMS 09:04 Cardiac Injury Profile Ordered. EDMS 09:04 Troponin Ordered. EDMS 09:04 Liver Profile Ordered. EDMS 09:04 Lipase Ordered. EDMS 09:05 Differential diagnosis: coronary artery disease esophagitis, gastroesophageal reflux pc disease (GERD), unstable angina, cervical radiculopathy. Plan: labs, EKG, meds, imaging. The patient was medicated with aspirin in the Emergency Department. 09:06 Spine, Cervical Ordered. EDMS 09:09 Test interpretation: EKG. pc 09:46 Financial registration complete. lg 10:16 Basic Metabolic Profile Reviewed. pc 10:16 CBC with Diff Reviewed. pc 10:16 Cardiac Injury Profile Reviewed. pc 10:16 Troponin Reviewed. pc 10:16 Liver Profile Reviewed. pc 10:16 Lipase Reviewed. pc 10:16 Chest, 2 View (pa\E\lat) Reviewed. pc 10:17 pantoprazole 40 mg IV at bolus once ordered. pc 10:17 Redraw CIP &Troponin (put time in details section) ordered. pc 10:17 Repeat EKG (put time details section) ordered. pc 10:29 Redraw CIP &Troponin (put time in details section) complete. deg 10:29 Repeat EKG (put time details section) complete. deg 10:30 CARDIAC MARKER PANEL Ordered. EDMS 10:31 ECG WITH READING ER PHYS ordered. EDMS 11:02 [facility] Payment Agreement was scanned into [employer] and attached to record. lg 12:11 Test interpretation: EKG. pc 12:51 CARDIAC MARKER PANEL Reviewed. pc 12:51 Spine, Cervical Reviewed. pc 13:07 Data reviewed: old medical records, vital signs, nurses notes, EKG(s), lab test pc results, all radiology studies and available results. Test interpretation: LAB - all labs as ordered have been reviewed, interpreted and considered in the overall management of the clinical presentation; X-RAY - interpreted by Radiologist and personally reviewed, 2 view chest, no acute disease. The patient has been re-examined and re-evaluated. The clinical presentation did not require any ED treatment or interventions. Physician consultation: Dr. Santiago Belle MD was contacted at 13:07, regarding patient's condition, and advises the medications/treatment as provided. and agrees with the treatment provided and advises the discharge plans as outlined. Disposition: The historical points, examination findings, and any diagnostic results supporting the provided diagnosis, were discussed with the patient or legal guardian. The need for outpatient follow up with the provider listed on their discharge instructions was discussed. They were encouraged to return to [facility], or the nearest ED, if symptoms worsen/persist, or for any other questions/concerns. EC:09 Rate is 68 beats/min. Rhythm is regular. QRS is negative in lead aVF. [place] interval is pc normal. QRS interval is normal. QT interval is normal. No Q waves. T waves are Normal. No ST changes noted. Clinical impression: Normal Sinus Rhythm and borderline LAD, Mod. IVCD, nonspecific ST depressions, no priors . 12:11 Rate is 73 beats/min. Rhythm is regular, Normal Sinus Rhythm. QRS [place] is Normal. [place] pc interval is normal. QRS interval is normal. QT interval is normal. No Q waves. T waves are Normal. No ST changes noted. Clinical impression: Normal Sinus Rhythm. Administered Medications: 09:10 Drug: Aspirin 324 mg [aspirin 81 mg chewable tablet (4 tabs)] Route: PO; ck1 10:23 Drug: pantoprazole 40 mg [pantoprazole 40 mg intravenous solution] Route: IV; Rate: ck1 bolus; Site: right antecubital; Signatures: Dispatcher [employer] Burke Farias MD MD pc Murray, Denise, [employer] Unit deg Nila Gonsalves, Reg Reg lg Leesa Jones RN RN ck1 Parul PrajapatiRN RN [id number] The chart was reviewed and I authenticate all verbal orders and agree with the evaluation and treatment provided.Corrections: (The following items were deleted from the chart) 08:43 08:41 Family history Not pertinent, ck1 ck1 Attachments: 11:02 [facility] Payment Agreement lg Chart Complete MTDD
--- NOTE | 2016-04-27 14:36 | EDDOCDS ---
Physician Documentation [facility] Name: Richi Gorman Age: 30 yrs Sex: Male : 1985 Arrival Date: 04/25/2016 Time: 08:23 Bed 15 Private MD: Brenna Collins L. Disposition: 04/25 13:07 Critical Care: Critical care not applicable. pc Disposition: 04/25/16 13:08 Discharged to Home/Self Care. Impression: Chest pain, unspecified. - Condition is Stable. - Discharge Instructions: Nonspecific Chest Pain. - Prescriptions for Protonix 40 mg Oral Tablet - take 1 tablet by ORAL route once daily; 30 tablet. - Medication Reconciliation, Local Pharmacy Hours, Work Release Form - 1 day form. - Follow up: Santiago Belle MD; When: Call to arrange an appointment; Reason: Further diagnostic work-up, To establish care. Follow up: Brenna Collins; When: Call to arrange an appointment; Reason: Continuance of care. - Problem is an ongoing problem. - Symptoms have improved. HPI: 09:05 This 30 yrs old Other Male presents to ER via Walkin/Carried/Asstd with complaints of pc Chest Pain. 09:05 The history is obtained from the patient. Symptoms began He has been having a pc tightening feeling in his throat and upper chest for 2 weeks, lasting from hours to full days. He does not describe any relation to exertion. He has symptoms at night as well as during the day. He denies any SOB or SOBOE, denies nausea or diaphoresis. Today, he awoke with chest and pressure radiating into his left arm. . The patient's known risk factors for coronary artery disease include: a family history of coronary artery disease. The patient has not recently seen a physician. Historical: - Allergies: PENICILLINS; Erythromycin; Rhinocort Aqua; SULFA (SULFONAMIDES); - Home Meds: 1. none - PMHx: none; - PSHx: Tubes in ears; - The history from nurses notes was reviewed: and I agree with what is documented. - Social history: Smoking status: Patient uses tobacco products, heavy tobacco smoker. No barriers to communication noted, The patient speaks fluent [place]uneian, Speaks appropriately for age. - Family history: Pertinent for heart disease, hypertension, hypercholesterolemia. - : The pt / caregiver states he / she is not on anticoagulants. Home medication list is obtained from the patient. - Hospitalizations: : No recent hospitalization is reported. - Exposure Risk Screening:: None identified. - Immunization history:: All immunizations up-to-date. - Social history:: the patient is a non-smoker, the patient does not drink alcohol. ROS: 09:05 All systems are negative except as listed. The cardiovascular, respiratory, pc gastrointestinal and neurological components are also addressed in the HPI. Exam: 09:05 General Appearance: alert, no acute distress. pc 09:05 ENT: ear, nose and throat normal, pharynx normal. 09:05 Neck: supple, non-tender, no masses are appreciated, no carotid bruits. 09:05 Respiratory: no respiratory distress, normal breath sounds, chest non-tender. 09:05 Cardiovascular: regular pulse rate, regular heart rhythm, normal heart sounds, equal and full pulses bilaterally. 09:05 Abdomen: soft, non-tender, no organomegaly, normal bowel sounds. 09:05 Skin: skin color is normal, warm, dry. 09:05 Extremities: The extremities have a grossly normal appearance, are non-tender, without acute ROM abnormalities. 09:05 Neuro: alert, oriented to person, place and time, cranial nerves normal as tested, no motor deficits, no sensory deficits. 09:05 Psych: normal mood. Vital Signs: 08:31 BP 117 / 68 (auto/); ck1 08:33 Pulse 78 MON; Pulse Ox 98% ; ck1 08:37 BP 117 / 68; Pulse 77; Resp 18; Temp 96.8(T); Pulse Ox 98% on R/A; Weight 149.69 kg / ck1 330.01 lbs (R); Height 6 ft. 0 in. (182.88 cm); Pain 4/10; 08:55 BP 134 / 90 (auto/); ck1 08:55 Pulse 66 MON; Pulse Ox 97% ; ck1 09:01 BP 131 / 86 (auto/); ck1 09:01 Pulse 70 MON; Pulse Ox 97% ; ck1 09:16 BP 127 / 68 (auto/); ck1 09:16 Pulse 82 MON; Pulse Ox 97% ; ck1 09:32 BP 131 / 76 (auto/); ck1 09:32 Pulse 68 MON; Pulse Ox 98% ; ck1 09:46 BP 135 / 85 (auto/); ck1 09:46 Pulse 72 MON; Pulse Ox 97% ; ck1 10:01 Pulse 72 MON; Pulse Ox 97% ; ck1 10:01 BP 120 / 66 (auto/); ck1 10:16 BP 116 / 74 (auto/); ck1 10:16 Pulse 66 MON; Pulse Ox 96% ; ck1 10:31 BP 114 / 58 (auto/); ck1 10:31 Pulse 68 MON; Pulse Ox 98% ; ck1 11:01 BP 116 / 56 (auto/); ml6 11:01 Pulse 72 MON; Resp 16; Pulse Ox 97% on R/A; Pain 0/10; ml6 11:16 BP 114 / 55 (auto/); ml6 11:16 Pulse 66 MON; Resp 16; Pulse Ox 98% on R/A; ml6 11:31 BP 127 / 55 (auto/); ml6 11:31 Pulse 62 MON; Resp 16; Pulse Ox 96% on R/A; ml6 12:00 BP 131 / 68 (auto/); ml6 12:00 Pulse 72 MON; Resp 16; Pulse Ox 98% on R/A; ml6 12:16 BP 113 / 56 (auto/); ml6 12:16 Pulse 62 MON; Resp 16; Pulse Ox 98% on R/A; Pain 0/10; ml6 12:31 BP 115 / 60 (auto/); js13 12:31 Pulse 64 MON; Pulse Ox 98% ; js13 12:45 Pulse 68 MON; Pulse Ox 97% ; js13 12:46 BP 122 / 66 (auto/); js13 13:01 BP 122 / 58 (auto/); js13 13:01 Pulse 66 MON; Resp 16; Temp 97.1(O); Pulse Ox 96% on R/A; js13 08:37 Body Mass Index 44.76 (149.69 kg, 182.88 cm) ck1 MDM: 08:31 ECG WITH READING ER PHYS+CARDIAG ordered. EDMS 09:03 Aspirin Chewable Tablet 324 mg PO once ordered. pc 09:03 Prescription Benefit Specialist/Pulse Ox/q 30 min VS ordered. pc 09:03 IV Saline Lock ordered. pc 09:03 Rhythm Strip to chart ordered. pc 09:04 Chest, 2 View (pa\E\lat) Ordered. EDMS 09:04 Basic Metabolic Profile Ordered. EDMS 09:04 CBC with Diff Ordered. EDMS 09:04 Cardiac Injury Profile Ordered. EDMS 09:04 Troponin Ordered. EDMS 09:04 Liver Profile Ordered. EDMS 09:04 Lipase Ordered. EDMS 09:05 Differential diagnosis: coronary artery disease esophagitis, gastroesophageal reflux pc disease (GERD), unstable angina, cervical radiculopathy. Plan: labs, EKG, meds, imaging. The patient was medicated with aspirin in the Emergency Department. 09:06 Spine, Cervical Ordered. EDMS 09:09 Test interpretation: EKG. pc 09:46 Financial registration complete. lg 10:16 Basic Metabolic Profile Reviewed. pc 10:16 CBC with Diff Reviewed. pc 10:16 Cardiac Injury Profile Reviewed. pc 10:16 Troponin Reviewed. pc 10:16 Liver Profile Reviewed. pc 10:16 Lipase Reviewed. pc 10:16 Chest, 2 View (pa\E\lat) Reviewed. pc 10:17 pantoprazole 40 mg IV at bolus once ordered. pc 10:17 Redraw CIP &Troponin (put time in details section) ordered. pc 10:17 Repeat EKG (put time details section) ordered. pc 10:29 Redraw CIP &Troponin (put time in details section) complete. deg 10:29 Repeat EKG (put time details section) complete. deg 10:30 CARDIAC MARKER PANEL Ordered. EDMS 10:31 ECG WITH READING ER PHYS ordered. EDMS 11:02 [facility] Payment Agreement was scanned into [employer] and attached to record. lg 12:11 Test interpretation: EKG. pc 12:51 CARDIAC MARKER PANEL Reviewed. pc 12:51 Spine, Cervical Reviewed. pc 13:07 Data reviewed: old medical records, vital signs, nurses notes, EKG(s), lab test pc results, all radiology studies and available results. Test interpretation: LAB - all labs as ordered have been reviewed, interpreted and considered in the overall management of the clinical presentation; X-RAY - interpreted by Radiologist and personally reviewed, 2 view chest, no acute disease. The patient has been re-examined and re-evaluated. The clinical presentation did not require any ED treatment or interventions. Physician consultation: Dr. Santiago Belle MD was contacted at 13:07, regarding patient's condition, and advises the medications/treatment as provided. and agrees with the treatment provided and advises the discharge plans as outlined. Disposition: The historical points, examination findings, and any diagnostic results supporting the provided diagnosis, were discussed with the patient or legal guardian. The need for outpatient follow up with the provider listed on their discharge instructions was discussed. They were encouraged to return to [facility], or the nearest ED, if symptoms worsen/persist, or for any other questions/concerns. EC:09 Rate is 68 beats/min. Rhythm is regular. QRS is negative in lead aVF. [place] interval is pc normal. QRS interval is normal. QT interval is normal. No Q waves. T waves are Normal. No ST changes noted. Clinical impression: Normal Sinus Rhythm and borderline LAD, Mod. IVCD, nonspecific ST depressions, no priors . 12:11 Rate is 73 beats/min. Rhythm is regular, Normal Sinus Rhythm. QRS [place] is Normal. ID pc interval is normal. QRS interval is normal. QT interval is normal. No Q waves. T waves are Normal. No ST changes noted. Clinical impression: Normal Sinus Rhythm. Administered Medications: 09:10 Drug: Aspirin 324 mg [aspirin 81 mg chewable tablet (4 tabs)] Route: PO; ck1 10:23 Drug: pantoprazole 40 mg [pantoprazole 40 mg intravenous solution] Route: IV; Rate: ck1 bolus; Site: right antecubital; Signatures: Dispatcher [employer] Burke Farias MD MD pc Murray, Denise, [employer] Unit deg Nila Gonsalves, Reg Reg lg Leesa Jones RN RN ck1 Parul PrajapatiRN RN [id number] The chart was reviewed and I authenticate all verbal orders and agree with the evaluation and treatment provided.Corrections: (The following items were deleted from the chart) 08:43 08:41 Family history Not pertinent, ck1 ck1 Attachments: 11:02 [facility] Payment Agreement lg Chart Complete MTDD
--- NOTE | 2016-04-27 20:55 | EDDOCDS ---
Physician Documentation [facility] Name: Richi Gorman Age: 30 yrs Sex: Male : 1985 Arrival Date: 04/25/2016 Time: 08:23 Bed 15 Private MD: Brenna Collins L. Disposition: 04/25 13:07 Critical Care: Critical care not applicable. pc Disposition: 04/25/16 13:08 Discharged to Home/Self Care. Impression: Chest pain, unspecified. - Condition is Stable. - Discharge Instructions: Nonspecific Chest Pain. - Prescriptions for Protonix 40 mg Oral Tablet - take 1 tablet by ORAL route once daily; 30 tablet. - Medication Reconciliation, Local Pharmacy Hours, Work Release Form - 1 day form. - Follow up: Santiago Belle MD; When: Call to arrange an appointment; Reason: Further diagnostic work-up, To establish care. Follow up: Brenna Collins; When: Call to arrange an appointment; Reason: Continuance of care. - Problem is an ongoing problem. - Symptoms have improved. HPI: 09:05 This 30 yrs old Other Male presents to ER via Walkin/Carried/Asstd with complaints of pc Chest Pain. 09:05 The history is obtained from the patient. Symptoms began He has been having a pc tightening feeling in his throat and upper chest for 2 weeks, lasting from hours to full days. He does not describe any relation to exertion. He has symptoms at night as well as during the day. He denies any SOB or SOBOE, denies nausea or diaphoresis. Today, he awoke with chest and pressure radiating into his left arm. . The patient's known risk factors for coronary artery disease include: a family history of coronary artery disease. The patient has not recently seen a physician. Historical: - Allergies: PENICILLINS; Erythromycin; Rhinocort Aqua; SULFA (SULFONAMIDES); - Home Meds: 1. none - PMHx: none; - PSHx: Tubes in ears; - The history from nurses notes was reviewed: and I agree with what is documented. - Social history: Smoking status: Patient uses tobacco products, heavy tobacco smoker. No barriers to communication noted, The patient speaks fluent [place], Speaks appropriately for age. - Family history: Pertinent for heart disease, hypertension, hypercholesterolemia. - : The pt / caregiver states he / she is not on anticoagulants. Home medication list is obtained from the patient. - Hospitalizations: : No recent hospitalization is reported. - Exposure Risk Screening:: None identified. - Immunization history:: All immunizations up-to-date. - Social history:: the patient is a non-smoker, the patient does not drink alcohol. ROS: 09:05 All systems are negative except as listed. The cardiovascular, respiratory, pc gastrointestinal and neurological components are also addressed in the HPI. Exam: 09:05 General Appearance: alert, no acute distress. pc 09:05 ENT: ear, nose and throat normal, pharynx normal. 09:05 Neck: supple, non-tender, no masses are appreciated, no carotid bruits. 09:05 Respiratory: no respiratory distress, normal breath sounds, chest non-tender. 09:05 Cardiovascular: regular pulse rate, regular heart rhythm, normal heart sounds, equal and full pulses bilaterally. 09:05 Abdomen: soft, non-tender, no organomegaly, normal bowel sounds. 09:05 Skin: skin color is normal, warm, dry. 09:05 Extremities: The extremities have a grossly normal appearance, are non-tender, without acute ROM abnormalities. 09:05 Neuro: alert, oriented to person, place and time, cranial nerves normal as tested, no motor deficits, no sensory deficits. 09:05 Psych: normal mood. Vital Signs: 08:31 BP 117 / 68 (auto/); ck1 08:33 Pulse 78 MON; Pulse Ox 98% ; ck1 08:37 BP 117 / 68; Pulse 77; Resp 18; Temp 96.8(T); Pulse Ox 98% on R/A; Weight 149.69 kg / ck1 330.01 lbs (R); Height 6 ft. 0 in. (182.88 cm); Pain 4/10; 08:55 BP 134 / 90 (auto/); ck1 08:55 Pulse 66 MON; Pulse Ox 97% ; ck1 09:01 BP 131 / 86 (auto/); ck1 09:01 Pulse 70 MON; Pulse Ox 97% ; ck1 09:16 BP 127 / 68 (auto/); ck1 09:16 Pulse 82 MON; Pulse Ox 97% ; ck1 09:32 BP 131 / 76 (auto/); ck1 09:32 Pulse 68 MON; Pulse Ox 98% ; ck1 09:46 BP 135 / 85 (auto/); ck1 09:46 Pulse 72 MON; Pulse Ox 97% ; ck1 10:01 Pulse 72 MON; Pulse Ox 97% ; ck1 10:01 BP 120 / 66 (auto/); ck1 10:16 BP 116 / 74 (auto/); ck1 10:16 Pulse 66 MON; Pulse Ox 96% ; ck1 10:31 BP 114 / 58 (auto/); ck1 10:31 Pulse 68 MON; Pulse Ox 98% ; ck1 11:01 BP 116 / 56 (auto/); ml6 11:01 Pulse 72 MON; Resp 16; Pulse Ox 97% on R/A; Pain 0/10; ml6 11:16 BP 114 / 55 (auto/); ml6 11:16 Pulse 66 MON; Resp 16; Pulse Ox 98% on R/A; ml6 11:31 BP 127 / 55 (auto/); ml6 11:31 Pulse 62 MON; Resp 16; Pulse Ox 96% on R/A; ml6 12:00 BP 131 / 68 (auto/); ml6 12:00 Pulse 72 MON; Resp 16; Pulse Ox 98% on R/A; ml6 12:16 BP 113 / 56 (auto/); ml6 12:16 Pulse 62 MON; Resp 16; Pulse Ox 98% on R/A; Pain 0/10; ml6 12:31 BP 115 / 60 (auto/); js13 12:31 Pulse 64 MON; Pulse Ox 98% ; js13 12:45 Pulse 68 MON; Pulse Ox 97% ; js13 12:46 BP 122 / 66 (auto/); js13 13:01 BP 122 / 58 (auto/); js13 13:01 Pulse 66 MON; Resp 16; Temp 97.1(O); Pulse Ox 96% on R/A; js13 08:37 Body Mass Index 44.76 (149.69 kg, 182.88 cm) ck1 MDM: 08:31 ECG WITH READING ER PHYS+CARDIAG ordered. EDMS 09:03 Aspirin Chewable Tablet 324 mg PO once ordered. pc 09:03 Application Architect/Pulse Ox/q 30 min VS ordered. pc 09:03 IV Saline Lock ordered. pc 09:03 Rhythm Strip to chart ordered. pc 09:04 Chest, 2 View (pa\E\lat) Ordered. EDMS 09:04 Basic Metabolic Profile Ordered. EDMS 09:04 CBC with Diff Ordered. EDMS 09:04 Cardiac Injury Profile Ordered. EDMS 09:04 Troponin Ordered. EDMS 09:04 Liver Profile Ordered. EDMS 09:04 Lipase Ordered. EDMS 09:05 Differential diagnosis: coronary artery disease esophagitis, gastroesophageal reflux pc disease (GERD), unstable angina, cervical radiculopathy. Plan: labs, EKG, meds, imaging. The patient was medicated with aspirin in the Emergency Department. 09:06 Spine, Cervical Ordered. EDMS 09:09 Test interpretation: EKG. pc 09:46 Financial registration complete. lg 10:16 Basic Metabolic Profile Reviewed. pc 10:16 CBC with Diff Reviewed. pc 10:16 Cardiac Injury Profile Reviewed. pc 10:16 Troponin Reviewed. pc 10:16 Liver Profile Reviewed. pc 10:16 Lipase Reviewed. pc 10:16 Chest, 2 View (pa\E\lat) Reviewed. pc 10:17 pantoprazole 40 mg IV at bolus once ordered. pc 10:17 Redraw CIP &Troponin (put time in details section) ordered. pc 10:17 Repeat EKG (put time details section) ordered. pc 10:29 Redraw CIP &Troponin (put time in details section) complete. deg 10:29 Repeat EKG (put time details section) complete. deg 10:30 CARDIAC MARKER PANEL Ordered. EDMS 10:31 ECG WITH READING ER PHYS ordered. EDMS 11:02 [facility] Payment Agreement was scanned into [employer] and attached to record. lg 12:11 Test interpretation: EKG. pc 12:51 CARDIAC MARKER PANEL Reviewed. pc 12:51 Spine, Cervical Reviewed. pc 13:07 Data reviewed: old medical records, vital signs, nurses notes, EKG(s), lab test pc results, all radiology studies and available results. Test interpretation: LAB - all labs as ordered have been reviewed, interpreted and considered in the overall management of the clinical presentation; X-RAY - interpreted by Radiologist and personally reviewed, 2 view chest, no acute disease. The patient has been re-examined and re-evaluated. The clinical presentation did not require any ED treatment or interventions. Physician consultation: Dr. Santiago Belle MD was contacted at 13:07, regarding patient's condition, and advises the medications/treatment as provided. and agrees with the treatment provided and advises the discharge plans as outlined. Disposition: The historical points, examination findings, and any diagnostic results supporting the provided diagnosis, were discussed with the patient or legal guardian. The need for outpatient follow up with the provider listed on their discharge instructions was discussed. They were encouraged to return to [facility], or the nearest ED, if symptoms worsen/persist, or for any other questions/concerns. EC:09 Rate is 68 beats/min. Rhythm is regular. QRS is negative in lead aVF. NC interval is pc normal. QRS interval is normal. QT interval is normal. No Q waves. T waves are Normal. No ST changes noted. Clinical impression: Normal Sinus Rhythm and borderline LAD, Mod. IVCD, nonspecific ST depressions, no priors . 12:11 Rate is 73 beats/min. Rhythm is regular, Normal Sinus Rhythm. QRS [place] is Normal. NC pc interval is normal. QRS interval is normal. QT interval is normal. No Q waves. T waves are Normal. No ST changes noted. Clinical impression: Normal Sinus Rhythm. Administered Medications: 09:10 Drug: Aspirin 324 mg [aspirin 81 mg chewable tablet (4 tabs)] Route: PO; ck1 10:23 Drug: pantoprazole 40 mg [pantoprazole 40 mg intravenous solution] Route: IV; Rate: ck1 bolus; Site: right antecubital; Signatures: Dispatcher [employer] Burke Farias MD MD pc Murray, Denise, [place] Registered Nurse Unit deg Nila Gonsalves, Reg Reg lg Leesa Jones RN RN ck1 Parul PrajapatiRN RN [id number] The chart was reviewed and I authenticate all verbal orders and agree with the evaluation and treatment provided.Corrections: (The following items were deleted from the chart) 08:43 08:41 Family history Not pertinent, ck1 ck1 Attachments: 11:02 [facility] Payment Agreement lg Chart Complete MTDD
--- NOTE | 2016-04-27 20:56 | EDDOCDS ---
Physician Documentation [facility] Name: Richi Gorman Age: 30 yrs Sex: Male : 1985 Arrival Date: 04/25/2016 Time: 08:23 Bed 15 Private MD: Brenna Collins L. Disposition: 04/25 13:07 Critical Care: Critical care not applicable. pc Disposition: 04/25/16 13:08 Discharged to Home/Self Care. Impression: Chest pain, unspecified. - Condition is Stable. - Discharge Instructions: Nonspecific Chest Pain. - Prescriptions for Protonix 40 mg Oral Tablet - take 1 tablet by ORAL route once daily; 30 tablet. - Medication Reconciliation, Local Pharmacy Hours, Work Release Form - 1 day form. - Follow up: Santiago Belle MD; When: Call to arrange an appointment; Reason: Further diagnostic work-up, To establish care. Follow up: Brenna Collins; When: Call to arrange an appointment; Reason: Continuance of care. - Problem is an ongoing problem. - Symptoms have improved. HPI: 09:05 This 30 yrs old Other Male presents to ER via Walkin/Carried/Asstd with complaints of pc Chest Pain. 09:05 The history is obtained from the patient. Symptoms began He has been having a pc tightening feeling in his throat and upper chest for 2 weeks, lasting from hours to full days. He does not describe any relation to exertion. He has symptoms at night as well as during the day. He denies any SOB or SOBOE, denies nausea or diaphoresis. Today, he awoke with chest and pressure radiating into his left arm. . The patient's known risk factors for coronary artery disease include: a family history of coronary artery disease. The patient has not recently seen a physician. Historical: - Allergies: PENICILLINS; Erythromycin; Rhinocort Aqua; SULFA (SULFONAMIDES); - Home Meds: 1. none - PMHx: none; - PSHx: Tubes in ears; - The history from nurses notes was reviewed: and I agree with what is documented. - Social history: Smoking status: Patient uses tobacco products, heavy tobacco smoker. No barriers to communication noted, The patient speaks fluent [place]ian, Speaks appropriately for age. - Family history: Pertinent for heart disease, hypertension, hypercholesterolemia. - : The pt / caregiver states he / she is not on anticoagulants. Home medication list is obtained from the patient. - Hospitalizations: : No recent hospitalization is reported. - Exposure Risk Screening:: None identified. - Immunization history:: All immunizations up-to-date. - Social history:: the patient is a non-smoker, the patient does not drink alcohol. ROS: 09:05 All systems are negative except as listed. The cardiovascular, respiratory, pc gastrointestinal and neurological components are also addressed in the HPI. Exam: 09:05 General Appearance: alert, no acute distress. pc 09:05 ENT: ear, nose and throat normal, pharynx normal. 09:05 Neck: supple, non-tender, no masses are appreciated, no carotid bruits. 09:05 Respiratory: no respiratory distress, normal breath sounds, chest non-tender. 09:05 Cardiovascular: regular pulse rate, regular heart rhythm, normal heart sounds, equal and full pulses bilaterally. 09:05 Abdomen: soft, non-tender, no organomegaly, normal bowel sounds. 09:05 Skin: skin color is normal, warm, dry. 09:05 Extremities: The extremities have a grossly normal appearance, are non-tender, without acute ROM abnormalities. 09:05 Neuro: alert, oriented to person, place and time, cranial nerves normal as tested, no motor deficits, no sensory deficits. 09:05 Psych: normal mood. Vital Signs: 08:31 BP 117 / 68 (auto/); ck1 08:33 Pulse 78 MON; Pulse Ox 98% ; ck1 08:37 BP 117 / 68; Pulse 77; Resp 18; Temp 96.8(T); Pulse Ox 98% on R/A; Weight 149.69 kg / ck1 330.01 lbs (R); Height 6 ft. 0 in. (182.88 cm); Pain 4/10; 08:55 BP 134 / 90 (auto/); ck1 08:55 Pulse 66 MON; Pulse Ox 97% ; ck1 09:01 BP 131 / 86 (auto/); ck1 09:01 Pulse 70 MON; Pulse Ox 97% ; ck1 09:16 BP 127 / 68 (auto/); ck1 09:16 Pulse 82 MON; Pulse Ox 97% ; ck1 09:32 BP 131 / 76 (auto/); ck1 09:32 Pulse 68 MON; Pulse Ox 98% ; ck1 09:46 BP 135 / 85 (auto/); ck1 09:46 Pulse 72 MON; Pulse Ox 97% ; ck1 10:01 Pulse 72 MON; Pulse Ox 97% ; ck1 10:01 BP 120 / 66 (auto/); ck1 10:16 BP 116 / 74 (auto/); ck1 10:16 Pulse 66 MON; Pulse Ox 96% ; ck1 10:31 BP 114 / 58 (auto/); ck1 10:31 Pulse 68 MON; Pulse Ox 98% ; ck1 11:01 BP 116 / 56 (auto/); ml6 11:01 Pulse 72 MON; Resp 16; Pulse Ox 97% on R/A; Pain 0/10; ml6 11:16 BP 114 / 55 (auto/); ml6 11:16 Pulse 66 MON; Resp 16; Pulse Ox 98% on R/A; ml6 11:31 BP 127 / 55 (auto/); ml6 11:31 Pulse 62 MON; Resp 16; Pulse Ox 96% on R/A; ml6 12:00 BP 131 / 68 (auto/); ml6 12:00 Pulse 72 MON; Resp 16; Pulse Ox 98% on R/A; ml6 12:16 BP 113 / 56 (auto/); ml6 12:16 Pulse 62 MON; Resp 16; Pulse Ox 98% on R/A; Pain 0/10; ml6 12:31 BP 115 / 60 (auto/); js13 12:31 Pulse 64 MON; Pulse Ox 98% ; js13 12:45 Pulse 68 MON; Pulse Ox 97% ; js13 12:46 BP 122 / 66 (auto/); js13 13:01 BP 122 / 58 (auto/); js13 13:01 Pulse 66 MON; Resp 16; Temp 97.1(O); Pulse Ox 96% on R/A; js13 08:37 Body Mass Index 44.76 (149.69 kg, 182.88 cm) ck1 MDM: 08:31 ECG WITH READING ER PHYS+CARDIAG ordered. EDMS 09:03 Aspirin Chewable Tablet 324 mg PO once ordered. pc 09:03 Intensivist/Pulse Ox/q 30 min VS ordered. pc 09:03 IV Saline Lock ordered. pc 09:03 Rhythm Strip to chart ordered. pc 09:04 Chest, 2 View (pa\E\lat) Ordered. EDMS 09:04 Basic Metabolic Profile Ordered. EDMS 09:04 CBC with Diff Ordered. EDMS 09:04 Cardiac Injury Profile Ordered. EDMS 09:04 Troponin Ordered. EDMS 09:04 Liver Profile Ordered. EDMS 09:04 Lipase Ordered. EDMS 09:05 Differential diagnosis: coronary artery disease esophagitis, gastroesophageal reflux pc disease (GERD), unstable angina, cervical radiculopathy. Plan: labs, EKG, meds, imaging. The patient was medicated with aspirin in the Emergency Department. 09:06 Spine, Cervical Ordered. EDMS 09:09 Test interpretation: EKG. pc 09:46 Financial registration complete. lg 10:16 Basic Metabolic Profile Reviewed. pc 10:16 CBC with Diff Reviewed. pc 10:16 Cardiac Injury Profile Reviewed. pc 10:16 Troponin Reviewed. pc 10:16 Liver Profile Reviewed. pc 10:16 Lipase Reviewed. pc 10:16 Chest, 2 View (pa\E\lat) Reviewed. pc 10:17 pantoprazole 40 mg IV at bolus once ordered. pc 10:17 Redraw CIP &Troponin (put time in details section) ordered. pc 10:17 Repeat EKG (put time details section) ordered. pc 10:29 Redraw CIP &Troponin (put time in details section) complete. deg 10:29 Repeat EKG (put time details section) complete. deg 10:30 CARDIAC MARKER PANEL Ordered. EDMS 10:31 ECG WITH READING ER PHYS ordered. EDMS 11:02 [facility] Payment Agreement was scanned into [employer] and attached to record. lg 12:11 Test interpretation: EKG. pc 12:51 CARDIAC MARKER PANEL Reviewed. pc 12:51 Spine, Cervical Reviewed. pc 13:07 Data reviewed: old medical records, vital signs, nurses notes, EKG(s), lab test pc results, all radiology studies and available results. Test interpretation: LAB - all labs as ordered have been reviewed, interpreted and considered in the overall management of the clinical presentation; X-RAY - interpreted by Radiologist and personally reviewed, 2 view chest, no acute disease. The patient has been re-examined and re-evaluated. The clinical presentation did not require any ED treatment or interventions. Physician consultation: Dr. Santiago Belle MD was contacted at 13:07, regarding patient's condition, and advises the medications/treatment as provided. and agrees with the treatment provided and advises the discharge plans as outlined. Disposition: The historical points, examination findings, and any diagnostic results supporting the provided diagnosis, were discussed with the patient or legal guardian. The need for outpatient follow up with the provider listed on their discharge instructions was discussed. They were encouraged to return to [facility], or the nearest ED, if symptoms worsen/persist, or for any other questions/concerns. EC:09 Rate is 68 beats/min. Rhythm is regular. QRS is negative in lead aVF. NE interval is pc normal. QRS interval is normal. QT interval is normal. No Q waves. T waves are Normal. No ST changes noted. Clinical impression: Normal Sinus Rhythm and borderline LAD, Mod. IVCD, nonspecific ST depressions, no priors . 12:11 Rate is 73 beats/min. Rhythm is regular, Normal Sinus Rhythm. QRS [place] is Normal. NE pc interval is normal. QRS interval is normal. QT interval is normal. No Q waves. T waves are Normal. No ST changes noted. Clinical impression: Normal Sinus Rhythm. Administered Medications: 09:10 Drug: Aspirin 324 mg [aspirin 81 mg chewable tablet (4 tabs)] Route: PO; ck1 10:23 Drug: pantoprazole 40 mg [pantoprazole 40 mg intravenous solution] Route: IV; Rate: ck1 bolus; Site: right antecubital; Signatures: Dispatcher [employer] Burke Farias MD MD pc Murray, Denise, Plumbing Hardware Assembler Unit deg Nila Gonsalves, Reg Reg lg Leesa Jones RN RN ck1 Parul PrajapatiRN RN [id number] The chart was reviewed and I authenticate all verbal orders and agree with the evaluation and treatment provided.Corrections: (The following items were deleted from the chart) 08:43 08:41 Family history Not pertinent, ck1 ck1 Attachments: 11:02 [facility] Payment Agreement lg Chart Complete MTDD
--- NOTE | 2016-04-27 20:56 | EDDOCDS ---
Nurse's Notes [facility] Name: Ad Gorman Age: 30 yrs Sex: Male : 1985 Arrival Date: 04/25/2016 Time: 08:23 Bed 15 Private MD: Brenna Collins L. Diagnosis: Chest pain, unspecified Presentation: 04/25 08:36 Presenting complaint: Patient states: Onset chest pain =yesterday at 1600. Reports pain ck1 radiates to neck and left arm. Aspirin was not taken prior to arrival. Adult Sepsis Screening: The patient does not have new or worsening altered mentation. Patient's respiratory rate is less than 22. Systolic blood pressure is greater than 100. Patient has a qSOFA score of 0- Negative Sepsis Screen. Suicide/Homicide risk assessment- the patient denies having any suicidal and/or homicidal ideations and does not present with any other emotional, behavioral or mental health complaints. 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 Transition of care: patient was not received from another setting of care. 08:36 Acuity: MAVIS Level 3 ck1 08:36 Method Of Arrival: Walkin/Carried/Asstd ck1 Triage Assessment: 08:39 General: Appears in no apparent distress, obese, Behavior is appropriate for age, ck1 cooperative. Pain: Location: left arm Pain currently is 4 out of 10 on a pain scale. HIV screening NA for this visit Offered previously. Neurological: Level of Consciousness is awake, alert, obeys commands, Oriented to person, place, time. Cardiovascular: Chest pain is described as vague, radiates to left arm(s) neck episodes "couple of hours" began yesterday at 1600. Respiratory: Respiratory effort is unlabored, Respiratory pattern is regular, symmetrical. GI: Abdomen is obese, Reports nausea. Derm: Skin is pink, warm & dry. Historical: - Allergies: PENICILLINS; Erythromycin; Rhinocort Aqua; SULFA (SULFONAMIDES); - Home Meds: 1. none - PMHx: none; - PSHx: Tubes in ears; - The history from nurses notes was reviewed: and I agree with what is documented. - Social history: Smoking status: Patient uses tobacco products, heavy tobacco smoker. No barriers to communication noted, The patient speaks fluent Palauan, Speaks appropriately for age. - Family history: Pertinent for heart disease, hypertension, hypercholesterolemia. - : The pt / caregiver states he / she is not on anticoagulants. Home medication list is obtained from the patient. - Hospitalizations: : No recent hospitalization is reported. - Exposure Risk Screening:: None identified. - Immunization history:: All immunizations up-to-date. - Social history:: the patient is a non-smoker, the patient does not drink alcohol. Screenin:41 Screening information is obtained from the patient. Fall risk: No risks identified. ck1 Assistance ADL's: requires no assistance with activities of daily living. Abuse/DV Screen: The patient / caregiver reports he/she is: not in a situation that causes fear, pain or injury. Nutritional screening: No deficits noted. Advance Directives: Currently, there is no health care proxy. home support is adequate. Assessment: 08:41 General: see triage note. ck1 09:35 General: Appears in no apparent distress, comfortable, Behavior is appropriate for age, ck1 cooperative, pleasant. Neurological: Level of Consciousness is awake, alert, obeys commands, Oriented to person, place, time. Cardiovascular: Rhythm is sinus rhythm. Respiratory: Respiratory effort is unlabored, Respiratory pattern is regular, symmetrical. GI: No deficits noted. Derm: Skin is pink, warm & dry. 10:23 General: Patient is resting quietly on stretcher. Reports "fullness" in chest and up ck1 into neck 4/10. No acute distress noted, respirations easy on RA. Patient aware of repeat lab work and EKG at noon. Mother at bedside, call light in reach. Will continue to monitor patient. 11:10 General: Appears in no apparent distress, comfortable, Behavior is appropriate for age, ml6 cooperative. Pain: Denies pain. Neurological: No deficits noted. Level of Consciousness is awake, alert, Oriented to person, place, time. Cardiovascular: No deficits noted. Capillary refill < 3 seconds is brisk in bilateral fingers toes Heart tones S1 S2 present Edema is absent. Pulses are all present. Rhythm is sinus rhythm. Respiratory: No deficits noted. Airway is patent Respiratory effort is even, unlabored, Respiratory pattern is regular, symmetrical, Breath sounds are clear bilaterally. GI: No deficits noted. Abdomen is flat, non- distended Bowel sounds present X 4 quads. 13:32 General: Appears in no apparent distress, comfortable, Behavior is appropriate for age, js13 cooperative. Pain: Denies pain. Neurological: Level of Consciousness is awake, alert, obeys commands. Cardiovascular: Rhythm is sinus rhythm Chest pain is denied. Respiratory: Airway is patent Respiratory effort is even, unlabored, Respiratory pattern is regular, symmetrical. Derm: Skin is pink, warm & dry. Vital Signs: 08:31 BP 117 / 68 (auto/); ck1 08:33 Pulse 78 MON; Pulse Ox 98% ; ck1 08:37 BP 117 / 68; Pulse 77; Resp 18; Temp 96.8(T); Pulse Ox 98% on R/A; Weight 149.69 kg ck1 (R); Height 6 ft. 0 in. (182.88 cm); Pain 4/10; 08:55 BP 134 / 90 (auto/); ck1 08:55 Pulse 66 MON; Pulse Ox 97% ; ck1 09:01 BP 131 / 86 (auto/); ck1 09:01 Pulse 70 MON; Pulse Ox 97% ; ck1 09:16 BP 127 / 68 (auto/); ck1 09:16 Pulse 82 MON; Pulse Ox 97% ; ck1 09:32 BP 131 / 76 (auto/); ck1 09:32 Pulse 68 MON; Pulse Ox 98% ; ck1 09:46 BP 135 / 85 (auto/); ck1 09:46 Pulse 72 MON; Pulse Ox 97% ; ck1 10:01 Pulse 72 MON; Pulse Ox 97% ; ck1 10:01 BP 120 / 66 (auto/); ck1 10:16 BP 116 / 74 (auto/); ck1 10:16 Pulse 66 MON; Pulse Ox 96% ; ck1 10:31 BP 114 / 58 (auto/); ck1 10:31 Pulse 68 MON; Pulse Ox 98% ; ck1 11:01 BP 116 / 56 (auto/); ml6 11:01 Pulse 72 MON; Resp 16; Pulse Ox 97% on R/A; Pain 0/10; ml6 11:16 BP 114 / 55 (auto/); ml6 11:16 Pulse 66 MON; Resp 16; Pulse Ox 98% on R/A; ml6 11:31 BP 127 / 55 (auto/); ml6 11:31 Pulse 62 MON; Resp 16; Pulse Ox 96% on R/A; ml6 12:00 BP 131 / 68 (auto/); ml6 12:00 Pulse 72 MON; Resp 16; Pulse Ox 98% on R/A; ml6 12:16 BP 113 / 56 (auto/); ml6 12:16 Pulse 62 MON; Resp 16; Pulse Ox 98% on R/A; Pain 0/10; ml6 12:31 BP 115 / 60 (auto/); js13 12:31 Pulse 64 MON; Pulse Ox 98% ; js13 12:45 Pulse 68 MON; Pulse Ox 97% ; js13 12:46 BP 122 / 66 (auto/); js13 13:01 BP 122 / 58 (auto/); js13 13:01 Pulse 66 MON; Resp 16; Temp 97.1(O); Pulse Ox 96% on R/A; js13 08:37 Body Mass Index 44.76 (149.69 kg, 182.88 cm) ck1 Vitals: 08:37 Log In Time: April 25, 2016 at 08:38. ck1 ED Course: 08:24 Patient visited by Nila Gonsalves Reg. lg 08:24 Brenna Collins is Private Physician. lg 08:24 Patient moved to Waiting lg 08:30 Patient moved to banner 08:34 EKG done. (by ED staff). Reviewed by Burke Boone MD. dem1 08:37 Triage Initiated ck1 08:39 Patient visited by Armando Eli. dem1 08:41 The patient / caregiver is instructed regarding the plan of care and ED course. Cardiac ck1 monitor on. Pulse ox on. NIBP on. 08:50 Burke Boone MD is Attending Physician. pc 08:57 Inserted saline lock: 18 gauge in right antecubital area and blood collected. The ck1 patient tolerated the procedure well. by Thom general intern student. 09:02 Patient visited by Burke Boone MD. pc 09:05 Patient visited by Leesa Jones,GEORGI. ck1 09:05 Lipase Sent. ck1 09:05 Liver Profile Sent. ck1 09:05 Basic Metabolic Profile Sent. ck1 09:05 CBC with Diff Sent. ck1 09:05 Cardiac Injury Profile Sent. ck1 09:05 Troponin Sent. ck1 09:10 Patient visited by Leesa JonesGEORGI. ck1 09:35 Patient visited by Leesa Jones RN. ck1 10:03 Chest, 2 View (pa\\E\\lat) Returned. EDMS 10:06 Patient visited by Leesa Jones RN. ck1 10:23 Patient visited by Leesa Jones RN. ck1 10:49 Patient visited by Leesa Jones RN. ck1 10:49 Spine, Cervical Returned. EDMS 11:02 [facility] Payment Agreement was scanned into [employer] and attached to record. lg 11:13 Patient visited by Wilberto Burger RN. ml6 11:55 Patient visited by Wilberto Burger RN. ml6 11:57 EKG done. (by ED staff). Reviewed by Burke Boone MD. dem1 12:10 Patient visited by Armando Eli. dem1 12:58 Patient visited by Wilberto Burger RN. ml6 13:01 Discontinued IV lock intact, bleeding controlled, pressure dressing applied, No js13 redness/swelling at site. No procedures done that require assistance. 13:08 Santiago Belle MD is Referral Physician. pc 13:08 Brenna Collins is Referral Physician. pc 04/26 15:14 EKG-ADULT Returned. EDMS 15:14 ECG WITH READING ER PHYS Returned. EDMS Administered Medications: 04/25 09:10 Drug: Aspirin 324 mg [aspirin 81 mg chewable tablet (4 tabs)] Route: PO; ck1 10:23 Drug: pantoprazole 40 mg [pantoprazole 40 mg intravenous solution] Route: IV; Rate: ck1 bolus; Site: right antecubital; Order Results: Lab Order: Basic Metabolic Profile; SPEC'M 04/25/16 08:52 Test: GLUCOSE, FASTING; Value: 90; Range: 70-105; Units: MG/DL; Status: F Test: BLOOD UREA NITROGEN; Value: 11; Range: 7-18; Units: MG/DL; Status: F Test: CREATININE FOR GFR; Value: 0.77; Range: 0.70-1.30; Units: MG/DL; Status: F Test: GLOMERULAR FILTRATION RATE; Value: > 60.0; Range: >60; Status: F Test: SODIUM LEVEL; Value: 142; Range: 136-145; Units: MEQ/L; Status: F Test: POTASSIUM SERUM; Value: 4.0; Range: 3.5-5.1; Units: MEQ/L; Status: F Test: CHLORIDE LEVEL; Value: 107; Range: 98-107; Units: MEQ/L; Status: F Test: CARBON DIOXIDE LEVEL; Value: 28; Range: 21-32; Units: MEQ/L; Status: F Test: ANION GAP; Value: 7; Range: 8-16; Abnormal: Below low normal; Units: MEQ/L; Status: F Test: CALCIUM LEVEL; Value: 8.7; Range: 8.5-10.1; Units: MG/DL; Status: F Test Note: ; Units are mL/min/1.73 m2 Chronic Kidney Disease Staging per NKF: Stage I & II GFR >=60 Normal to Mildly Decreased Stage III GFR 30-59 Moderately Decreased Stage IV GFR 15-29 Severely Decreased Stage V GFR <15 Very Little GFR Left ESRD GFR <15 on EMPLOYMENT SPECIALIST Lab Order: CBC with Diff; SPEC'M 04/25/16 08:52 Test: WHITE BLOOD COUNT; Value: 6.1; Range: 4.0-10.0; Units: K/mm3; Status: F Test: RED BLOOD COUNT; Value: 4.92; Range: 4.30-6.10; Units: M/mm3; Status: F Test: HEMOGLOBIN; Value: 14.6; Range: 14.0-18.0; Units: g/dl; Status: F Test: HEMATOCRIT; Value: 43.5; Range: 42.0-52.0; Units: %; Status: F Test: MEAN CORPUSCULAR VOLUME; Value: 88.4; Range: 80.0-96.0; Units: fl; Status: F Test: MEAN CORPUSCULAR HEMOGLOBIN; Value: 29.7; Range: 27.0-33.0; Units: pg; Status: F Test: MEAN CORPUSCULAR HGB CONC; Value: 33.5; Range: 32.0-36.5; Units: g/dl; Status: F Test: RED CELL DISTRIBUTION WIDTH; Value: 12.3; Range: 11.5-14.5; Units: %; Status: F Test: PLATELET COUNT, AUTOMATED; Value: 190; Range: 150-450; Units: k/mm3; Status: F Test: NEUTROPHILS %; Value: 56.9; Range: 36.0-66.0; Units: %; Status: F Test: LYMPH %; Value: 29.8; Range: 24.0-44.0; Units: %; Status: F Test: MONO %; Value: 8.4; Range: 0.0-5.0; Abnormal: Above high normal; Units: %; Status: F Test: EOS %; Value: 2.2; Range: 0.0-3.0; Units: %; Status: F Test: BASO %; Value: 0.7; Range: 0.0-1.0; Units: %; Status: F Test: LARGE UNSTAINED CELL %; Value: 2.0; Range: 0.0-4.0; Units: %; Status: F Test: NEUTROPHILS #; Value: 3.5; Range: 1.8-7.7; Units: K/mm3; Status: F Test: LYMPH #; Value: 1.8; Range: 1.5-4.5; Units: K/mm3; Status: F Test: MONO #; Value: 0.5; Range: 0.0-0.8; Units: K/mm3; Status: F Test: EOS #; Value: 0.1; Range: 0.0-0.50; Units: K/mm3; Status: F Test: BASO #; Value: 0.0; Range: 0.0-0.2; Units: K/mm3; Status: F Test: LARGE UNSTAINED CELL #; Value: 0.1; Range: 0.0-0.4; Units: K/mm3; Status: F Lab Order: Cardiac Injury Profile; SPEC'M 04/25/16 08:52 Test: CPK CREATINE PHOSPHOKINASE; Value: 119; Range: 39-308; Units: U/L; Status: F Test: CK-MB VALUE MASS; Value: 1.0; Range: 0.0-3.6; Units: NG/ML; Status: F Test: MB/CK RELATIVE INDEX; Value: 0.84; Range: < OR =4; Status: F Test Note: ; DIAGNOSIS CRITERIA MMB ng/ml Relative Index (RI) NON-AMI < or = 5 N/A JIMENEZ ZONE > 5 < or = 4 AMI > 5 > 4 Lab Order: Troponin; [facility] 04/25/16 08:52 Test: TROPONIN I; Value: < 0.02; Range: < 0.10; Units: NG/ML; Status: F Test Note: ; Troponin I Reference Interval for Siemens [place] LOCI: 99th Percentile= 0.00-0.045 ng/ml Risk Stratification: <= 0.10 ng/ml Decreased Risk for Adverse Clinical Events. 0.10-1.50 ng/ml Increased Risk for Adverse Clinical Events. Evaluation of additional criterion and/or repeat testing in 2-6 hours is suggested to rule out myocardial damage. >= 1.50 ng/ml Indicative of Myocardial Injury. Lab Order: Liver Profile; [facility] 04/25/16 08:52 Test: AST/SGOT; Value: 20; Range: 15-37; Units: U/L; Status: F Test: ALT/SGPT; Value: 39; Range: 12-78; Units: U/L; Status: F Test: ALKALINE PHOSPHATASE; Value: 64; Range: 45-117; Units: U/L; Status: F Test: BILIRUBIN,TOTAL; Value: 0.9; Range: 0.2-1.0; Units: MG/DL; Status: F Test: BILIRUBIN,DIRECT; Value: 0.2; Range: 0.0-0.2; Units: MG/DL; Status: F Test: TOTAL PROTEIN; Value: 7.1; Range: 6.4-8.2; Units: GM/DL; Status: F Test: ALBUMIN; Value: 3.8; Range: 3.2-5.2; Units: GM/DL; Status: F Test: ALBUMIN/GLOBULIN RATIO; Value: 1.15; Range: 1.00-1.93; Status: F Lab Order: Lipase; [facility] 04/25/16 08:52 Test: LIPASE; Value: 165; Range: 73-393; Units: U/L; Status: F Lab Order: CARDIAC MARKER PANEL; [facility] 04/25/16 12:03 Test: CPK CREATINE PHOSPHOKINASE; Value: 107; Range: 39-308; Units: U/L; Status: F Test: CK-MB VALUE MASS; Value: 1.1; Range: 0.0-3.6; Units: NG/ML; Status: F Test: MB/CK RELATIVE INDEX; Value: 1.02; Range: < OR =4; Status: F Test: TROPONIN I; Value: < 0.02; Range: < 0.10; Units: NG/ML; Status: F Test Note: ; DIAGNOSIS CRITERIA MMB ng/ml Relative Index (RI) NON-AMI < or = 5 N/A JIMENEZ ZONE > 5 < or = 4 AMI > 5 > 4 Radiology Order: EKG-ADULT Test: EKG-ADULT REASON FOR EXAMINATION: Chest Pain; Stationary ECG Study; [facility] - ED; ; Test Date: 2016-04-25; Pat Name: AD GORMAN Department:; Room: -; Gender: M Lap Hand Tool: marlena; : 1985 Requested By: Burke Ahumada; Order Number: [id number] Reading MD: Estefania Ceron; Measurements; Intervals [place]; Rate: 68 P: 43; TN: 129 QRS: -22; QRSD: 118 T: 61; QT: 400; QTc: 425; Interpretive Statements; SINUS RHYTHM; BORDERLINE LEFT AXIS DEVIATION; MODERATE INTRAVENTRICULAR CONDUCTION DELAY; MINIMAL ST DEPRESSION; NO PRIOR FOR COMPARISON; Electronically Signed On 04-26-2016 15:09:25 EST by Estefania Ceron; Radiology Order: Chest, 2 View (pa\\E\\lat) Test: Chest, 2 View (pa\\E\\lat) REASON FOR EXAMINATION: Chest Pain; Clinical: Chest pain .; ; Comparison: None .; ; Technique: PA and lateral.; ; Findings:; The mediastinum and cardiac silhouette are normal. The lung morales are clear and; without acute consolidation, effusion, or pneumothorax. The skeletal structures; are intact and normal.; ; Impression:; 1. No acute cardiopulmonary process.; ; ; Signed by; Emmanuel Serrano MD 04/25/2016 09:41 A; Radiology Order: Spine, Cervical Test: Spine, Cervical REASON FOR EXAMINATION: radiculopathy; Clinical: Radiculopathy.; ; Technique: AP, lateral, flexion/extension, swimmer's, bilateral oblique and open; mouth views of the cervical spine.; ; Findings:; Alignment is maintained. No acute fracture / compression injury or subluxation.; Vertebral bodies and disc spaces appear normal for age. Spinous processes are; intact. Oblique views demonstrate patent neural foramen. Open mouth view; demonstrates normal C1-C2 articulation and odontoid process.; ; Impression:; Normal cervical spine series.; ; ; Signed by; Emmanuel Serrano MD 04/25/2016 09:57 A; Outcome: 13:01 Discharge Assessment: Patient awake, alert and oriented x 3. No cognitive and/or js13 functional deficits noted. Patient verbalized understanding of disposition instructions. patient administered narcotics - no. The following High Risk Discharge criteria are identified: None. Discharged to home ambulatory. Condition: stable. Discharge instructions given to patient, Instructed on discharge instructions, follow up and referral plans. medication usage, Demonstrated understanding of instructions, medications, Pt was receptive of discharge instructions/ teaching. Prescriptions given X 1. No special radiology studies were completed. Property :Personal belongings accompany Pt. 13:08 Discharge ordered by Provider. 13:34 Patient left the ED. js13 Signatures: Dispatcher [employer] EDBurke Cage MD MD pc Sleeman, Kacey, RN RN Nila Leahy, Reg Reg Leesa YanesRN RN ck1 Wilberto Burger, RN RN Armando Espinosa Jennifer,RN RN js13 Corrections: (The following items were deleted from the chart) 08:43 08:41 Family history Not pertinent, ck1 ck1 Chart Complete MTDD
== END 2016-04-25 13:34 | disposition home or self-care (01) ==
LOC: M ED 08:23
DX: R07.9 Chest pain, unspecified (principal); F17.200 Nicotine dependence, unspecified, uncomplicated; Z88.0 Allergy status to penicillin; Z88.2 Allergy status to sulfonamides; Z88.1 Allergy status to other antibiotic agents; Z88.8 Allergy status to other drugs, medicaments and biological substances
CPT/HCPCS: 36415; 71020; 72052; 80048; 80076; 82550; 82553; 83690; 85025; 93005; 93041; 96374; 99285; C9113

== ENCOUNTER → 2016-05-14 | Outpatient (CLI) | payer BC ==
[2016-05-14 13:51] LABS: ALBUMIN 3.8 GM/DL (3.2-5.2); ALBUMIN/GLOBULIN RATIO 1.15 (1.00-1.93); ALKALINE PHOSPHATASE 71 U/L (45-117); ALT/SGPT 33 U/L (12-78); ANION GAP 8 MEQ/L (8-16); AST/SGOT 14 U/L (15-37); BILIRUBIN,TOTAL 0.6 MG/DL (0.2-1.0); BLOOD UREA NITROGEN 10 MG/DL (7-18); CALCIUM LEVEL 8.5 MG/DL (8.5-10.1); CARBON DIOXIDE LEVEL 28 MEQ/L (21-32); CHLORIDE LEVEL 107 MEQ/L (98-107); CHOLESTEROL LEVEL 203 MG/DL (<200); CREATININE FOR GFR 0.77 MG/DL (0.70-1.30); GLOMERULAR FILTRATION RATE > 60.0 (>60); GLUCOSE, FASTING 83 MG/DL (70-105); POTASSIUM SERUM 4.4 MEQ/L (3.5-5.1); SODIUM LEVEL 143 MEQ/L (136-145); TOTAL PROTEIN 7.1 GM/DL (6.4-8.2); TRIGLYCERIDES LEVEL 91 MG/DL (<150)
== END ==
LOC: M SMT 09:56
PROVIDERS: ATTEND Nurse Practitioner Adult Health
DX: Z00.00 Encounter for general adult medical examination without abnormal findings (principal); R07.9 Chest pain, unspecified; R06.83 Snoring; K29.60 Other gastritis without bleeding; Z72.0 Tobacco use; Z79.899 Other long term (current) drug therapy

== ENCOUNTER → 2016-08-30 | Outpatient (CLI) | payer BC ==
--- NOTE | 2016-09-06 11:10 | SLEEPHOME ---
DATE OF PROCEDURE: 08/30/2016 REFERRING PROVIDER: Nazia Cardona NP INTERPRETATION: Diagnostic home sleep testing was performed due to concern for the obstructive sleep apnea syndrome in this patient with a history of asthma. For testing, a NOX-T3 respiratory monitoring device was used. Continuous record was made of pulse, oxygen saturation, air flow, chest and abdominal strain, and body position. 9 hours and 59 minutes of data were reviewed. Of these, 6 hours and 2 minutes were marked as time in bed. During the interval marked time in bed, there were 286 respiratory events identified of 10 seconds in duration or greater for a respiratory event index of 47.4. The events were primarily obstructive, but some mixed apneas were also seen. Baseline pulse rate was 77 beats per minute. Pulse rate ranged 53 to 100. Baseline saturation was 93%. Lowest oxygen saturation 72%. Testing was performed in both the supine and nonsupine positions. IMPRESSION: Abnormal home sleep testing with repetitive respiratory events and oxygen desaturations to 72% is consistent with the obstructive sleep apnea syndrome. RECOMMENDATION: The patient should be encouraged to undergo formal sleep evaluation and in laboratory pressure titration.
== END ==
LOC: M SLEEP HO 10:06
PROVIDERS: ATTEND Nurse Practitioner Adult Health
DX: G47.30 Sleep apnea, unspecified (principal)

== ENCOUNTER → 2017-10-06 | Outpatient (CLI) | payer BC | LOC: M RAD 14:40 | DX: R59.9 Enlarged lymph nodes, unspecified (principal) | CPT/HCPCS: 76536 ==

== ENCOUNTER → 2017-10-12 | Outpatient (CLI) | payer BC ==
[2017-10-12 09:38] LABS: HEMATOCRIT 41.9 % (42.0-52.0); HEMOGLOBIN 14.2 g/dl (13.5-17.5); MEAN CORPUSCULAR HEMOGLOBIN 29.5 pg (27.0-33.0); MEAN CORPUSCULAR HGB CONC 33.9 g/dl (32.0-36.5); MEAN CORPUSCULAR VOLUME 86.9 fl (80.0-96.0); PLATELET COUNT, AUTOMATED 199 10^3/uL (150-450); RED BLOOD COUNT 4.82 10^6/uL (4.30-6.10); WHITE BLOOD COUNT 7.1 10^3/uL (4.0-10.0)
[2017-10-12 10:25] LABS: ALBUMIN 3.6 GM/DL (3.2-5.2); ALBUMIN/GLOBULIN RATIO 1.09 (1.00-1.93); ALKALINE PHOSPHATASE 64 U/L (45-117); ALT/SGPT 40 U/L (12-78); ANION GAP 7 MEQ/L (8-16); AST/SGOT 15 U/L (7-37); BLOOD UREA NITROGEN 10 MG/DL (7-18); CALCIUM LEVEL 8.3 MG/DL (8.5-10.1); CARBON DIOXIDE LEVEL 26 MEQ/L (21-32); CHLORIDE LEVEL 108 MEQ/L (98-107); CHOLESTEROL LEVEL 180 MG/DL (<200); CHOLESTEROL RISK RATIO 4.285 (<5); CREATININE FOR GFR 0.78 MG/DL (0.70-1.30); GLOMERULAR FILTRATION RATE > 60.0 (>60); GLUCOSE, FASTING 83 MG/DL (70-100); HDL CHOLESTEROL 42 MG/DL (>40); NON-HDL-C 138 MG/DL; SODIUM LEVEL 141 MEQ/L (136-145); TOTAL PROTEIN 6.9 GM/DL (6.4-8.2); TRIGLYCERIDES LEVEL 70 MG/DL (<150)
== END ==
LOC: M LAB 09:23
DX: R59.9 Enlarged lymph nodes, unspecified (principal); Z68.42 Body mass index [BMI] 45.0-49.9, adult
CPT/HCPCS: 84443

== ENCOUNTER → 2018-02-22 | Outpatient (CLI) | payer BC ==
[2018-02-26 00:31] LABS: ANGIOTENSIN 1 CONVERTING ENZYM 43 U/L (14-82); ANTINUCLEAR ANTIBODIES DIRECT Negative (Negative); Lyme Disease IgG/IgM Antibodie <0.91 ISR (0.00-0.90); Lyme Disease IgM Ab Quantitati <0.80 index (0.00-0.79); SJOGREN'S ANTI SS-A <0.2 AI (0.0-0.9); SJOGREN'S ANTI SS-B 0.4 AI (0.0-0.9)
== END ==
LOC: M LAB 09:17
PROVIDERS: ATTEND Nurse Practitioner Adult Health
DX: M35.00 Sjogren syndrome, unspecified (principal); D86.9 Sarcoidosis, unspecified; R20.0 Anesthesia of skin

== ENCOUNTER → 2018-11-03 | Outpatient (CLI) | payer BC ==
--- NOTE | 2018-11-03 17:56 | REP ---
Clinical: Testicular pain. Technique: Real time landers scale and color Doppler evaluation using linear high frequency transducer. Findings: The bilateral testicles are normal in contour, size, echogenicity, and vascularity without evidence for intratesticular mass lesion, infectious/inflammatory process or torsion. Few bilateral epididymal cysts are identified and relatively nonspecific/benign in appearance measuring up to 3.7 mm in the right epididymis and 5.6 mm in the left epididymis. No hydrocele. No varicocele. Mild scrotal wall thickening to approximately 4.4 mm should be correlated clinically. Right testicle measures 2.9 x 2.2 x 2.0 cm. Left testicle measures 2.6 x 1.7 x 2.3 cm. Impression: Few nonspecific benign appearing epididymal cysts. Normal appearance the bilateral testicles. Mild scrotal wall thickening is of uncertain clinical significance. Electronically Signed by Emmanuel Serrano MD 11/03/2018 05:47 P
== END ==
LOC: M RAD 16:44
PROVIDERS: ATTEND Internal Medicine
DX: N50.819 Testicular pain, unspecified (principal)

== ENCOUNTER 2019-03-06 08:22 | Emergency (ER) | payer BC ==
[~2019-03-06] VITALS: Ht 182.9 cm; Wt 150.0 kg
[2019-03-06 09:30] LABS: BASO # 0.1 10^3/uL (0.0-0.2); EOS # 0.2 10^3/uL (0.0-0.5); EOS % 2.1 % (0.0-3.0); HEMATOCRIT 45.5 % (42.0-52.0); HEMOGLOBIN 14.6 g/dl (13.5-17.5); LYMPH # 2.2 10^3/uL (1.5-5.0); LYMPH % 30.2 % (24.0-44.0); MEAN CORPUSCULAR HEMOGLOBIN 28.9 pg (27.0-33.0); MEAN CORPUSCULAR HGB CONC 32.1 g/dl (32.0-36.5); MEAN CORPUSCULAR VOLUME 90.1 fl (80.0-96.0); MONO # 0.7 10^3/uL (0.0-0.8); NEUTROPHILS # 4.1 10^3/uL (1.5-8.5); PLATELET COUNT, AUTOMATED 218 10^3/uL (150-450); RED BLOOD COUNT 5.05 10^6/uL (4.30-6.10); WHITE BLOOD COUNT 7.2 10^3/uL (4.0-10.0)
[2019-03-06 10:00] LABS: ALBUMIN 3.6 GM/DL (3.2-5.2); ALT/SGPT 34 U/L (12-78); BILIRUBIN,DIRECT 0.1 MG/DL (0.0-0.2); BILIRUBIN,TOTAL 0.8 MG/DL (0.2-1.0); BLOOD UREA NITROGEN 10 MG/DL (7-18); CALCIUM LEVEL 8.6 MG/DL (8.5-10.1); CARBON DIOXIDE LEVEL 25 MEQ/L (21-32); CHLORIDE LEVEL 109 MEQ/L (98-107); CREATININE FOR GFR 0.76 MG/DL (0.70-1.30); GLOMERULAR FILTRATION RATE > 60.0 (>60); GLUCOSE, FASTING 83 MG/DL (70-100); LIPASE 140 U/L (73-393); POTASSIUM SERUM 4.1 MEQ/L (3.5-5.1); SODIUM LEVEL 142 MEQ/L (136-145); TOTAL PROTEIN 7.2 GM/DL (6.4-8.2)
--- NOTE | 2019-03-06 10:07 | REP ---
Abdomen series: Four views. History: Abdomen pain. Comparison chest x-ray: April 25, 2016. Findings: Upright chest radiograph is normal. There is no evidence of infiltrate or free subdiaphragmatic air. Heart is not enlarged. Supine and erect views of the abdomen demonstrate a normal bowel gas pattern with air and stool in a nondistended colon proximally and distally. Psoas margins and flank stripes are intact. No mass, organomegaly, or pathologic calcification is seen. Impression: Negative abdominal series. No abnormality noted. Electronically Signed by Justin Pereyra MD 03/06/2019 09:59 A
[2019-03-06] MEDS ORDERED: ISOVUE-370 76% 100ML VIAL (Q9967) As Ordered ONE (10:45)
--- NOTE | 2019-03-06 11:51 | REP ---
CT ABDOMEN PELVIS WITH IV BUT WITHOUT ORAL CONTRAST: HISTORY: Left-sided abdomen pain. No comparison CT study. CT CONTRAST DOSE: 100 mL of intravenous Isovue [address] FINDINGS: Digital preliminary laborer pipelines radiograph is unremarkable. Bowel gas pattern is normal. The lung bases are clear on axial CT images. There is mild diffuse fatty infiltration of the liver. No focal liver lesion is seen. There is a tiny accessory splenule at the pancreatic tail. No pancreatic abnormality is observed. No abnormalities noted in the gallbladder. There is no evidence of adrenal lesion. The kidneys enhance symmetrically and appear morphologically intact. No renal calculus or hydronephrosis is seen. No retroperitoneal mass or adenopathy is observed. Small and large bowel loops are unremarkable in the abdomen and pelvis. Normal appendix is seen in the right lower quadrant. Seminal vesicles, prostate, and urinary bladder are unremarkable. No abdominal wall defect is seen. Bone window settings show no bony destructive lesion. IMPRESSION: Minimal diffuse fatty infiltration of the liver. No normal appendix seen. Otherwise negative CT study abdomen and pelvis. Electronically Signed by Justin Pereyra MD 03/06/2019 01:29 P
[2019-03-06] MEDS ORDERED: SIME40TA PO (12:35)
[2019-03-06 12:38] VITALS: BP 128/68
== END 2019-03-06 12:54 | disposition home or self-care (01) ==
LOC: M ED 08:22
DX: K76.0 Fatty (change of) liver, not elsewhere classified (principal); J45.909 Unspecified asthma, uncomplicated; K21.9 Gastro-esophageal reflux disease without esophagitis; Z88.0 Allergy status to penicillin; Z88.1 Allergy status to other antibiotic agents; Z88.2 Allergy status to sulfonamides; F17.210 Nicotine dependence, cigarettes, uncomplicated
CPT/HCPCS: 36415; 74021; 74177; 80048; 80076; 81001; 83690; 85025; 99284; Q9967

== ENCOUNTER → 2019-08-14 | Outpatient (CLI) | payer BC ==
[~2019-08-14] MED LIST: SIME40TA PO
== END ==
LOC: M LABSMTC 09:44
PROVIDERS: ATTEND Anesthesiology
DX: Z03.818 Encounter for observation for suspected exposure to other biological agents ruled out (principal); Z11.59 Encounter for screening for other viral diseases
CPT/HCPCS: C9803; U0003

== ENCOUNTER 2019-08-17 13:31 | Day surgery (SDC) | payer BC ==
[~2019-08-17] VITALS: Ht 182.9 cm; Wt 146.4 kg
[~2019-08-17 13:31] MED LIST changes: +NS 1,000 ML IV ONE; -SIME40TA PO; +SIME80CH6 PO
[2019-08-17] MEDS ORDERED: LIDOCAINE 2% 100MG/5ML SDV (FOR ANES.) As Ordered ONE (14:40)
[2019-08-17] MEDS ORDERED: propofoL 500 MG/50 ML VIAL As Ordered ONE (14:40)
[2019-08-17] MEDS ORDERED: fentaNYL 100 MCG/2 ML INJECTION (J3010) As Ordered ONE (14:49)
[2019-08-17 15:36] VITALS: BP 130/61
--- NOTE | 2019-08-17 15:47 | ROOR ---
Patient Name: Richi Gorman Procedure Date: 08/17/2019 2:48 PM Date of : 1985 Age: 33 Room: [facility] [place] Gender: Male Note Status: Finalized Procedure: Upper GI endoscopy Indications: Heartburn, Suspected gastro-esophageal reflux disease Providers: Markos Briceño MD Referring MD: Brenna MAC NP Requesting Provider: Medicines: Monitored Anesthesia Care Complications: No immediate complications. Procedure: Pre-Anesthesia Assessment: - Prior to the procedure, a History and Physical was performed, and patient medications and allergies were reviewed. The patient is competent. The risks and benefits of the procedure and the sedation options and risks were discussed with the patient. All questions were answered and informed consent was obtained. Patient identification and proposed procedure were verified by the physician, the nurse and the anesthesiologist in the procedure room. Mental Status Examination: alert and oriented. Airway Examination: normal oropharyngeal airway and neck mobility. Respiratory Examination: clear to auscultation. CV Examination: normal. Prophylactic Antibiotics: The patient does not require prophylactic antibiotics. Prior Anticoagulants: The patient has taken no previous anticoagulant or antiplatelet agents. ASA Grade Assessment: II - A patient with mild systemic disease. After reviewing the risks and benefits, the patient was deemed in satisfactory condition to undergo the procedure. The anesthesia plan was to use monitored anesthesia care (MAC). Immediately prior to administration of medications, the patient was re-assessed for adequacy to receive sedatives. The heart rate, respiratory rate, oxygen saturations, blood pressure, adequacy of pulmonary ventilation, and response to care were monitored throughout the procedure. The physical status of the patient was re-assessed after the procedure. The Endoscope was introduced through the mouth, and advanced to the second part of duodenum. The upper GI endoscopy was accomplished without difficulty. The patient tolerated the procedure well. Findings: The examined esophagus was normal. The Z-line was regular and was found in the distal esophagus. Scattered mild inflammation characterized by erythema and granularity was found in the gastric antrum. Biopsies were taken with a cold forceps for Helicobacter pylori testing. Verification of patient identification for the specimen was done by the physician and nurse using the patient's name, date and medical record number. Estimated blood loss was minimal. The duodenal bulb and second portion of the duodenum were normal. Impression: - Normal esophagus. - Z-line regular, in the distal esophagus. - Gastritis. Biopsied. - Normal duodenal bulb and second portion of the duodenum. Recommendation: - Patient has a contact number available for emergencies. The signs and symptoms of potential delayed complications were discussed with the patient. Return to normal activities tomorrow. Written discharge instructions were provided to the patient. - High fiber diet. - Continue present medications. - Follow an antireflux regimen. - Await pathology results. - Telephone GI clinic for pathology results in 2 weeks. - Return to primary care physician. Markos Briceño MD Markos Briceño MD 08/17/2019 3:47:05 PM Electronically signed by Markos Briceño MD Number of Addenda: 0 Note Initiated On: 08/17/2019 2:48 PM Estimated Blood Loss: Estimated blood loss was minimal.
== END 2019-08-17 15:38 | disposition home or self-care (01) ==
LOC: M OPP 13:31
PROVIDERS: ATTEND Internal Medicine Gastroenterology
DX: K29.70 Gastritis, unspecified, without bleeding (principal); R12 Heartburn; G47.30 Sleep apnea, unspecified; I45.6 Pre-excitation syndrome; F17.210 Nicotine dependence, cigarettes, uncomplicated; Z79.899 Other long term (current) drug therapy; Z88.0 Allergy status to penicillin; Z88.2 Allergy status to sulfonamides; Z88.8 Allergy status to other drugs, medicaments and biological substances
CPT/HCPCS: 43239; 88305; J3010

== ENCOUNTER 2019-11-16 09:42 | Emergency (ER) | payer BC ==
[~2019-11-16] VITALS: Ht 182.9 cm; Wt 171.8 kg
[~2019-11-16 09:42] MED LIST changes: -NS 1,000 ML IV ONE; +SIME40TA PO; -SIME80CH6 PO
[2019-11-16 09:43] VITALS: BP 134/83
[2019-11-16 10:36] LABS: BASO # 0.1 10^3/uL (0.0-0.2); BASO % 0.8 % (0.0-1.0); EOS # 0.2 10^3/uL (0.0-0.5); HEMATOCRIT 44.6 % (42.0-52.0); HEMOGLOBIN 14.9 g/dl (13.5-17.5); LYMPH # 2.3 10^3/uL (1.5-5.0); LYMPH % 27.4 % (24.0-44.0); MEAN CORPUSCULAR HEMOGLOBIN 29.7 pg (27.0-33.0); MEAN CORPUSCULAR HGB CONC 33.4 g/dl (32.0-36.5); MONO # 0.8 10^3/uL (0.0-0.8); MONO % 9.9 % (0.0-5.0); NEUTROPHILS # 4.9 10^3/uL (1.5-8.5); NEUTROPHILS % 59.1 % (36.0-66.0); PLATELET COUNT, AUTOMATED 234 10^3/uL (150-450); RED BLOOD COUNT 5.01 10^6/uL (4.30-6.10); WHITE BLOOD COUNT 8.4 10^3/uL (4.0-10.0)
[2019-11-16 11:04] LABS: ALBUMIN 3.7 GM/DL (3.2-5.2); ALT/SGPT 37 U/L (12-78); BILIRUBIN,DIRECT 0.2 MG/DL (0.0-0.2); BILIRUBIN,TOTAL 0.9 MG/DL (0.2-1.0); BLOOD UREA NITROGEN 10 MG/DL (7-18); CALCIUM LEVEL 8.6 MG/DL (8.5-10.1); CARBON DIOXIDE LEVEL 26 MEQ/L (21-32); CHLORIDE LEVEL 109 MEQ/L (98-107); CK-MB VALUE MASS < 1.0 NG/ML (<3.6); CPK CREATINE PHOSPHOKINASE 90 U/L (39-308); CREATININE FOR GFR 0.79 MG/DL (0.70-1.30); GLOMERULAR FILTRATION RATE > 60.0 (>60); GLUCOSE, FASTING 85 MG/DL (70-100); LIPASE 134 U/L (73-393); MB/CK RELATIVE INDEX 1.11 (< OR =4); NT-PRO BNP < 5 PG/ML (<125); POTASSIUM SERUM 3.9 MEQ/L (3.5-5.1); SODIUM LEVEL 141 MEQ/L (136-145); TOTAL PROTEIN 7.2 GM/DL (6.4-8.2); TROPONIN I < 0.02 NG/ML (< 0.10)
[2019-11-16] MEDS ORDERED: ISOVUE-370 76% 100ML VIAL As Ordered ONE (11:16)
--- NOTE | 2019-11-16 12:17 | REPVR ---
PROCEDURE INFORMATION: Exam: CT Abdomen And Pelvis With Contrast Exam date and time: 11/16/2019 11:32 AM Age: 34 years old Clinical indication: Abdominal pain; Localized; Left upper quadrant (luq); Additional info: Luq pain R/O infectious process TECHNIQUE: Imaging protocol: Computed tomography of the abdomen and pelvis with intravenous contrast. Radiation optimization: All CT scans at this facility use at least one of these dose optimization techniques: automated exposure control; mA and/or kV adjustment per patient size (includes targeted exams where dose is matched to clinical indication); or iterative reconstruction. Contrast material: ISOVUE 370; Contrast volume: 100 ml; Contrast route: INTRAVENOUS (IV); COMPARISON: CT ABD/PEL W/IV CONTRAST ONLY 03/06/2019 10:48 AM FINDINGS: Liver: The liver is moderately fatty infiltrated and enlarged 186 mm. Gallbladder and bile ducts: Normal. No calcified stones. No ductal dilation. Pancreas: Normal. No ductal dilation. Spleen: Normal. No splenomegaly. Adrenals: Normal. No mass. Kidneys and ureters: Normal. No hydronephrosis. Stomach and bowel: There is scattered colonic diverticula. Appendix: The appendix demonstrates areas of increased density within it possibly stones but is not dilated and there is no surrounding inflammatory changes. Intraperitoneal space: There is subtle haziness question in the mesentery. Vasculature: Unremarkable. No abdominal aortic aneurysm. Lymph nodes: Numerous groin lymph nodes are identified measuring up to 10 x 11 mm involving the left groin. There is a 25 x 9 mm right groin lymph node. Bladder: Unremarkable as visualized. Reproductive: Unremarkable as visualized. Bones/joints: Unremarkable. No acute fracture. Soft tissues: Unremarkable. Other findings: The technique states contrast was administered however, it does not appear contrast is on the scan. Please clinically correlate. IMPRESSION: 1. Appendiceal calcifications without evidence of appendicitis. 2. Limited if any contrast noted within scanning parameter. Was there extravasation? 3. Possible mild mesenteric panniculitis. Electronically signed by: Adam Ann On 11/16/2019 12:17:31 PM
--- NOTE | 2019-11-20 09:50 | ECGEPIP ---
[facility] - ED Test Date: 2019-11-16 Pat Name: AD DUCKWORTH Department: Room: - Gender: Male [employer]: : 1985 Requested By: SULEIMAN DELEON Order Number: [id number] Reading MD: Burke Boone Measurements Intervals [place] Rate: 71 P: 32 MO: 134 QRS: -27 QRSD: 123 T: 75 QT: 418 QTc: 456 Interpretive Statements SINUS RHYTHM BORDERLINE LEFT AXIS DEVIATION RIGHT BUNDLE BRANCH BLOCK, NEW COMPARED TO 04/25/16 Electronically Signed on 11-20-2019 9:50:22 EDT by Burke Boone
== END 2019-11-16 12:57 | disposition home or self-care (01) ==
LOC: M ED 09:42
DX: R10.9 Unspecified abdominal pain (principal); I45.10 Unspecified right bundle-branch block; J45.909 Unspecified asthma, uncomplicated; F17.200 Nicotine dependence, unspecified, uncomplicated; K76.0 Fatty (change of) liver, not elsewhere classified; Z88.1 Allergy status to other antibiotic agents; Z88.0 Allergy status to penicillin
CPT/HCPCS: 74177; 80048; 80076; 81001; 82550; 82553; 83690; 83880; 84484; 85025; 93005; 99284; Q9967

== ENCOUNTER 2020-01-30 17:49 | Inpatient (IN) | payer BC ==
[~2020-01-30] VITALS: Ht 182.9 cm; Wt 169.5 kg
[2020-01-30] MEDS ORDERED: FAMO1TAB11 PO (18:02)
[2020-01-30] MEDS ORDERED: KETOROLAC 30 MG/ML 1ML VIAL IV ONE (18:30)
[2020-01-30] MEDS ORDERED: ONDANSETRON 4MG/2ML VIAL IV ONE (18:30)
[2020-01-30] MEDS ORDERED: DICYCLOMINE 10 MG CAP PO ONE (18:30)
[2020-01-30] MEDS ORDERED: NS 1,000 ML IV ONE (18:30)
[2020-01-30 20:37] LABS: BASO # 0.1 10^3/uL (0.0-0.2); BASO % 0.5 % (0.0-1.0); EOS # 0.2 10^3/uL (0.0-0.5); EOS % 0.9 % (0.0-3.0); HEMATOCRIT 35.6 % (42.0-52.0); HEMOGLOBIN 11.4 g/dl (13.5-17.5); LYMPH # 2.2 10^3/uL (1.5-5.0); LYMPH % 13.1 % (24.0-44.0); MEAN CORPUSCULAR HEMOGLOBIN 28.6 pg (27.0-33.0); MEAN CORPUSCULAR VOLUME 89.2 fl (80.0-96.0); MONO # 1.8 10^3/uL (0.0-0.8); MONO % 10.2 % (0.0-5.0); NEUTROPHILS # 12.7 10^3/uL (1.5-8.5); NEUTROPHILS % 74.2 % (36.0-66.0); PLATELET COUNT, AUTOMATED 304 10^3/uL (150-450); RED BLOOD COUNT 3.99 10^6/uL (4.30-6.10); WHITE BLOOD COUNT 17.1 10^3/uL (4.0-10.0)
[2020-01-30 21:07] LABS: ALBUMIN 2.8 GM/DL (3.2-5.2); ALT/SGPT 36 U/L (12-78); BILIRUBIN,DIRECT 0.2 MG/DL (0.0-0.2); BILIRUBIN,TOTAL 0.4 MG/DL (0.2-1.0); BLOOD UREA NITROGEN 7 MG/DL (7-18); CALCIUM LEVEL 8.3 MG/DL (8.5-10.1); CARBON DIOXIDE LEVEL 28 MEQ/L (21-32); CHLORIDE LEVEL 106 MEQ/L (98-107); CREATININE FOR GFR 0.86 MG/DL (0.70-1.30); GLOMERULAR FILTRATION RATE > 60.0 (>60); GLUCOSE, FASTING 76 MG/DL (70-100); LIPASE 101 U/L (73-393); POTASSIUM SERUM 3.6 MEQ/L (3.5-5.1); SODIUM LEVEL 139 MEQ/L (136-145); TOTAL PROTEIN 6.6 GM/DL (6.4-8.2)
[2020-01-30 21:18] LABS: INFLUENZA A AMPLIFICATION NEGATIVE (NEGATIVE); INFLUENZA B AMPLIFICATION NEGATIVE (NEGATIVE)
[2020-01-30] MEDS ORDERED: ISOVUE-370 76% 100ML VIAL As Ordered ONE (21:23)
--- NOTE | 2020-01-30 22:00 | REPVR ---
PROCEDURE INFORMATION: Exam: CT Abdomen And Pelvis With Contrast Exam date and time: 01/30/2020 9:25 PM Age: 34 years old Clinical indication: Abdominal pain; Additional info: Lower abd pain, profuse diarrhea, fevers TECHNIQUE: Imaging protocol: Computed tomography of the abdomen and pelvis with intravenous contrast. Radiation optimization: All CT scans at this facility use at least one of these dose optimization techniques: automated exposure control; mA and/or kV adjustment per patient size (includes targeted exams where dose is matched to clinical indication); or iterative reconstruction. Contrast material: ISO 370; Contrast volume: 100 ml; Contrast route: INTRAVENOUS (IV); COMPARISON: CT ABD/PEL W/IV CONTRAST ONLY 11/16/2019 11:24 AM FINDINGS: Liver: Normal. No mass. Gallbladder and bile ducts: Normal. No calcified stones. No ductal dilation. Pancreas: Normal. No ductal dilation. Spleen: Normal. No splenomegaly. Adrenal glands: Normal. No mass. Kidneys and ureters: Normal. No hydronephrosis. Stomach and bowel: There is slight wall thickening and edema of the ascending colon with some areas of slight colonic wall thickening distally which may reflect secondary involvement although some segmental colitis is not excluded. Manish appearance is similar to slightly increased since the prior study. Appendix: There is prominent inflammatory process extending across the pelvis which is centered just to the right of midline. Centrally, there are some calcific densities which likely reflect the appendicoliths which were noted on 11/16/2019. There is a central ovoid area of confluence with prominent surrounding inflammation and stranding which extends medially from the cecal tip. A portion of this likely reflects the appendix although the entire process probably reflects periappendiceal abscess with the appendix and measures approximately 4.6 cm in diameter. Within the surrounding indurated or inflamed mesenteric fat, there is edema with multiple foci of gas which are trapped within the edematous mesenteric fat and tracks cephalad along the mesentery to approximately the L3-L4 level. The entire inflammatory process encompasses an area measuring 13.1 x 10.0 x 5.5 cm. Intraperitoneal space: See "Appendix" finding. Vasculature: Unremarkable. No abdominal aortic aneurysm. Lymph nodes: Unremarkable. No enlarged lymph nodes. Urinary bladder: Unremarkable as visualized. Reproductive: Unremarkable as visualized. Bones/joints: Unremarkable. No acute fracture. Soft tissues: Unremarkable. IMPRESSION: 1. Interval ruptured appendicitis since 11/16/2019. There is slight containment around the appendix although there is significant ill-defined induration and gas which extends into the surrounding mesenteric fat tracking cephalad within the mesentery to the L3-L4 level. 2. Question of minimal segmental areas of nonspecific colitis although may be reactive to the inflammatory process in the pelvis. Electronically signed by: Dawson Siegel On 01/30/2020 22:00:55 PM
[2020-01-30] MEDS ORDERED: metroNIDAZOLE 500 MG in IV 1 EA IV ONE (22:15)
[2020-01-30] MEDS ORDERED: LevoFLOXacin IV 750 MG in IV 1 EA IV ONE (22:15)
[2020-01-30] MEDS ORDERED: ONDANSETRON 4MG/2ML VIAL IV PRN (22:30)
[2020-01-30] MEDS ORDERED: MORPHINE 2 MG/ML 1ML VIAL (J2270) IV PRN (22:30)
[2020-01-31] VITALS (12 sets, daily range): BP systolic 91–139; BP diastolic 58–87
[2020-01-31] MEDS: LR 1,000 ML IV SCH ×4 (01:01→21:09)
[2020-01-31] MEDS: metroNIDAZOLE 500 MG in IV 1 EA IV SCH ×3 (05:21→21:08)
[2020-01-31 06:15] LABS: BASO # 0.1 10^3/uL (0.0-0.2); BASO % 0.5 % (0.0-1.0); EOS # 0.2 10^3/uL (0.0-0.5); HEMOGLOBIN 11.5 g/dl (13.5-17.5); LYMPH # 1.7 10^3/uL (1.5-5.0); LYMPH % 11.3 % (24.0-44.0); MEAN CORPUSCULAR HEMOGLOBIN 28.8 pg (27.0-33.0); MEAN CORPUSCULAR HGB CONC 31.9 g/dl (32.0-36.5); MONO # 1.6 10^3/uL (0.0-0.8); MONO % 11.1 % (0.0-5.0); NEUTROPHILS # 11.1 10^3/uL (1.5-8.5); NEUTROPHILS % 75.4 % (36.0-66.0); PLATELET COUNT, AUTOMATED 281 10^3/uL (150-450); WHITE BLOOD COUNT 14.7 10^3/uL (4.0-10.0)
[2020-01-31 06:49] LABS: BLOOD UREA NITROGEN 4 MG/DL (7-18); CALCIUM LEVEL 8.1 MG/DL (8.5-10.1); CARBON DIOXIDE LEVEL 27 MEQ/L (21-32); CHLORIDE LEVEL 107 MEQ/L (98-107); CREATININE FOR GFR 0.77 MG/DL (0.70-1.30); GLOMERULAR FILTRATION RATE > 60.0 (>60); GLUCOSE, FASTING 82 MG/DL (70-100); SODIUM LEVEL 138 MEQ/L (136-145)
[2020-01-31] MEDS: ENOXAPARIN 40MG/0.4ML SYRINGE (J1650 PER 10MG) SC SCH (09:00)
[2020-01-31] MEDS: LevoFLOXacin IV 500 MG in IV 1 EA IV SCH (09:05)
[2020-01-31] MEDS: KETOROLAC 30 MG/ML 1ML VIAL IV PRN ×2 (09:12→17:40)
[2020-01-31] MEDS ORDERED: LIDOCAINE 1% MDV 20ML VIAL As Ordered ONE (09:22)
[2020-01-31] MEDS ORDERED: SODIUM BICARBONATE 8.4% INJ 50MEQ 50 ML VIAL As Ordered ONE (09:22)
[2020-01-31] MEDS: PERCOCET 5MG/325MG TAB PO PRN ×3 (14:13→23:21)
[2020-01-31] MEDS: ACETAMINOPHEN TAB 650MG DOSE (2X325MG) PO PRN (15:33)
--- NOTE | 2020-01-31 15:49 | HPEPDOC ---
General Surgery H&P Date of Admission Jan 30, 2020 Attending Physician: CIERRA RAMIREZ MD History and Physical CHIEF COMPLAINT: fever HISTORY OF PRESENT ILLNESS: Patient is a 34-year-old male who reports that he has been having on and off fever since January 20. Patient reports that on that day he had some mild to moderate grade fever that extends to about a 3 day period. He was also having nonbloody diarrhea at that time. That was a , by Friday he was seen in the urgent care setting. He was suspected to be having some flulike symptoms and was instructed to make sure he is hydrated. He was feeling mildly better in the early part of the week to the point that he was able to return to work on . He did have to go home feeling mildly tired. By Friday he was again having some low-grade fever as well as some loose stools as well as feeling uncomfortable in his abdomen. By Friday he was again having some moderate to high-grade fever and thus he presented himself to the emergency department. Throughout this time he does report that feels mildly uncomfortable towards the center of his abdomen, almost a sensation that he has to go to the bathroom. He is able to hold things down in terms of his diet and he was drinking a good amount of Gatorade to hydrate himself. He denies any overt nausea or vomiting. He continues to have some mild loose stools though this has improved from the in itial presentation 10 days prior. He denies any severe abdominal discomfort that limits his activity. In the emergency room he was found to have evidence for perforated acute appendicitis and thus he was subsequently admitted to de. ALLERGIES: Please see below. HOME MEDICATIONS: Please see below. PAST MEDICAL HISTORY: 1. History of Kyzfn-Lmvrnemqw-Usmlb syndrome. 2. Obstructive sleep apnea. Patient cannot tolerate CPAP PAST SURGICAL HISTORY: 1. Upper GI endoscopy on August 2019 for workup of suspected gastroesophageal reflux disease, left upper quadrant pain was noted to have gastritis then. 2. Tympanostomy tubes. PERSONAL/SOCIAL HISTORY: Reports smoking a pack a day, Denies alcohol use. Denies recreational drug use. REVIEW OF SYSTEMS: GENERAL: Patient has been reporting fever for at least 10 days. HEENT: Denies any problems with vision. NECK: [Denies any neck pain]. CARDIOVASCULAR: [Denies chest pain and palpitations]. MUSCULOSKELETAL: [Denies arthralgias, back pain and thrombophlebitis]. SKIN: [Denies rash]. NEUROLOGIC: [Denies headache, stroke and transient ischemic attack]. PSYCHIATRIC: [Denies anxiety and depression]. ENDOCRINE: [Denies thyroid disease]. HEMATOLOGY/ONCOLOGY: [Denies any bleeding or clotting disorder]. HEART: [Denies any chest pains, palpitations, paroxysmal dyspnea, orthopnea].has h/o cardiac arrhythmia (WPW) PULMONARY: Denies chronic cough, dyspnea and wheezing. GASTROINTESTINAL: See HPI. GENITOURINARY: Denies dysuria, frequency, hematuria and nocturia. ENDOCRINE: Denies polydipsia, polyphagia, polyuria, heat or cold intolerance. INFECTIOUS: Denies any recent upper respiratory tract infection, UTI, need for use of antibiotics. NUTRITION: reports decreased appetite. PHYSICAL EXAMINATION: VITAL SIGNS: Please see below. GENERAL APPEARANCE: Fairly comfortable in appearance, not sick in appearance HEENT: Normocephalic, atraumatic. [place] palpebral conjunctivae. Anicteric sclerae. Lips mildly dry.bese, ro CHEST: No chest wall abnormalities. Normal respiratory motion/effort. NECK: Supple. No thyromegaly. No lymphadenopathies. LUNGS: Lung sounds are clear to auscultation bilaterally. No wheezing appreciated. HEART: No chest wall abnormalities. Heart rate and rhythm are regular with no murmurs. ABDOMEN: Obese, rounded abdomen, mildly distended, minimally tender on deep palpation over lower mid abdomen and right lower quadrant area without any guarding. Nontender on left lower abdomen. SKIN: cool, moist. EXTREMITIES: no deformities, significant edema. NEUROLOGICAL: awake, alert, oriented. ANCILLARIES: . LABORATORY DATA: Please see below. MICROBIOLOGY: Please see below. IMAGING: CT abdomen and pelvis I reviewed the images myself on his CT abdomen and pelvis that was done 01/30/2020, compared it to a prior CT performed 11/16/2019. It looks to have that he has had a perforated appendicitis. There is a good amount of inflammation at the or around the cecum and terminal ileum. The radiologist did not really area these crease abscess though there is a good amount of phlegmon likewise most likely an abscess at the mid abdomen. IMPRESSION AND PLAN: Acute appendicitis with perforation and abscess Patient's history is atypical slightly because his most prominent symptom have been fever which was about 10 days ago and has recurred on the day of his presentation. He wasn't complaining much of abdominal discomfort at the onset then likewise on presentation. He appears to have had perforated acute appendicitis now with a fairly deformed area of inflammation and most likely abscess in the mid abdomen. By his history he probably had acute appendicitis a week ago which perforated which made him feel better and this is subsequently formed an abscess which restarted the inflammatory response in the moderate grade fever. At this point I spoke to him about draining the abscess which will be done percutaneously. I have started him on ciprofloxacin and metronidazole to cover for gram negatives and anaerobes. I have allowed him to get some clear liquids overnight as he does not have much of complaint with regards to vomiting as well as abdominal discomfort. If we are able to drain the abscess and his inflammatory response (i.e. is fever) improves then most likely he'll be discharged home with monitoring of the drainage and the drain will be removed in the clinic in outpatient basis. With regards to his appendix, I discussed with him the options which includes an interval appendectomy versus doing a colonoscopy mainly to rule out any malignancy and if he is not having any symptoms treat this expectantly. Data shows recurrent appendicitis may be slightly increased in the first year but returns back to his normal or regular risk for his age after that. If he does have repeat acute appendicitis, this can be treated accordingly without any increased risks for him. He will deal with this later after the abscess has been drained. Vital Signs Vital Signs Date Time Temp Pulse Resp B/P (MAP) Pulse Ox O2 Delivery O2 Flow Rate FiO2 01/31/20 14:40 102.1 101 24 134/76 (95) 97 Room Air I&Os I&O- Last 24 Hours up to 6 AM 01/31/20 06:00 Intake Total 2187 ml Output Total 250 ml Balance 1937 ml Laboratory Data Labs 24H Laboratory Tests 2 01/30/20 20:31: Immature Granulocyte % (Auto) 1.1, Neutrophils (%) (Auto) 74.2H, Lymphocytes (%) (Auto) 13.1L, Monocytes (%) (Auto) 10.2H, Eosinophils (%) (Auto) 0.9, Basophils (%) (Auto) 0.5, Neutrophils # (Auto) 12.7H, Lymphocytes # (Auto) 2.2, Monocytes # (Auto) 1.8H, Eosinophils # (Auto) 0.2, Basophils # (Auto) 0.1, Nucleated Red Blood Cells % (auto) 0.0, Anion Gap 5L, Glomerular Filtration Rate > 60.0, Calcium Level 8.3L, Total Bilirubin 0.4, Direct Bilirubin 0.2, Aspartate Amino Transf (AST/SGOT) 20, Alanine Aminotransferase (ALT/SGPT) 36, Alkaline Phosphatase 58, Total Protein 6.6, Albumin 2.8L, Albumin/Globulin Ratio 0.7, Lipase 101, Coronavirus (COVID-19)(PCR) NEGATIVE, Influenza Type A (RT-PCR) NEGATIVE, Influenza Type B (RT-PCR) NEGATIVE 01/31/20 05:58: Immature Granulocyte % (Auto) 0.7, Neutrophils (%) (Auto) 75.4H, Lymphocytes (%) (Auto) 11.3L, Monocytes (%) (Auto) 11.1H, Eosinophils (%) (Auto) 1.0, Basophils (%) (Auto) 0.5, Neutrophils # (Auto) 11.1H, Lymphocytes # (Auto) 1.7, Monocytes # (Auto) 1.6H, Eosinophils # (Auto) 0.2, Basophils # (Auto) 0.1, Nucleated Red Blood Cells % (auto) 0.0, Anion Gap 4L, Glomerular Filtration Rate > 60.0, Ernst cium Level 8.1L, C-Reactive Protein, Quantitative 21.00H CBC/BMP Laboratory Tests 01/30/20 20:31 01/31/20 05:58 Microbiology Microbiology 01/31/20 Gram Stain - Final, Resulted 01/31/20 Abscess Culture, Resulted Pending 01/31/20 Anaerobic Culture, Resulted Pending Home Medications Scheduled Famotidine (Famotidine) 20 Mg Tablet, 20 MG PO DAILY, (Reported) Allergies Coded Allergies: Penicillins (Verified Allergy, Mild, HIVES, 03/06/19) Sulfa (Sulfonamide Antibiotics) (Verified Allergy, Mild, HIVES, 03/06/19) erythromycin base (Verified Allergy, Mild, HIVES, 03/06/19) A-FIB/CHADSVASC A-FIB History Current/History of A-Fib/PAF?: No Current PO Anticoag Therapy: CIERRA Ryan MD Jan 31, 2020 15:49
[2020-02-01] MEDS: metroNIDAZOLE 500 MG in IV 1 EA IV SCH ×3 (05:44→21:39)
[2020-02-01] MEDS: LR 1,000 ML IV SCH ×3 (05:45→21:39)
[2020-02-01 06:00] VITALS: BP 110/67
[2020-02-01 06:29] LABS: BASO # 0.1 10^3/uL (0.0-0.2); BASO % 0.3 % (0.0-1.0); EOS # 0.1 10^3/uL (0.0-0.5); EOS % 0.8 % (0.0-3.0); HEMATOCRIT 32.3 % (42.0-52.0); HEMOGLOBIN 10.8 g/dl (13.5-17.5); LYMPH # 1.4 10^3/uL (1.5-5.0); LYMPH % 9.5 % (24.0-44.0); MEAN CORPUSCULAR HEMOGLOBIN 29.6 pg (27.0-33.0); MEAN CORPUSCULAR HGB CONC 33.4 g/dl (32.0-36.5); MEAN CORPUSCULAR VOLUME 88.5 fl (80.0-96.0); MONO # 1.2 10^3/uL (0.0-0.8); NEUTROPHILS # 11.5 10^3/uL (1.5-8.5); NEUTROPHILS % 80.6 % (36.0-66.0); PLATELET COUNT, AUTOMATED 300 10^3/uL (150-450); RED BLOOD COUNT 3.65 10^6/uL (4.30-6.10); WHITE BLOOD COUNT 14.3 10^3/uL (4.0-10.0)
[2020-02-01 07:06] LABS: BLOOD UREA NITROGEN 5 MG/DL (7-18); CALCIUM LEVEL 7.6 MG/DL (8.5-10.1); CARBON DIOXIDE LEVEL 25 MEQ/L (21-32); CHLORIDE LEVEL 107 MEQ/L (98-107); CREATININE FOR GFR 0.75 MG/DL (0.70-1.30); GLOMERULAR FILTRATION RATE > 60.0 (>60); GLUCOSE, FASTING 94 MG/DL (70-100); POTASSIUM SERUM 3.3 MEQ/L (3.5-5.1); SODIUM LEVEL 140 MEQ/L (136-145)
[2020-02-01] MEDS: ENOXAPARIN 40MG/0.4ML SYRINGE (J1650 PER 10MG) SC SCH (08:06)
[2020-02-01] MEDS: LevoFLOXacin IV 500 MG in IV 1 EA IV SCH (08:06)
[2020-02-01] MEDS: PERCOCET 5MG/325MG TAB PO PRN ×2 (08:07→15:45)
--- NOTE | 2020-02-01 08:12 | REP ---
INDICATION: drain mid abdomen collection. COMPARISON: None. TECHNIQUE: The procedure is performed by Krystina Mcrae [facility], under the direct supervision of Dr. Pereyra. The risks and benefits of the procedure were explained to the patient and informed consent was obtained both orally and written. Directly prior to the start of the procedure, a formal timeout was done in the exam room. The abdominal abscess was localized using CT guidance. Skin was prepped and draped in the usual sterile fashion. Fifteen ml of buffered lidocaine was used as a local anesthetic. FINDINGS: Using CT guidance a 10 Indian pigtail catheter was inserted and advanced into the abscess using trocar technique. 150 mL of blood and pus was removed and sent to the lab. The catheter was sutured to the skin, a sterile dressing was applied, and a drainage bag was attached. The patient tolerated the procedure well and was discharged back to the floor. Post CT imaging shows the tube to be in good placement. IMPRESSION: Ten Indian pigtail catheter drain placement into abdominal abscess under CT guidance. <Electronically signed by Krystina Mcrae > 01/31/20 1717 <Electronically signed by Neil Pereyra > 02/01/20 0844
[2020-02-01 10:00] VITALS: BP 120/68
[2020-02-01 14:00] VITALS: BP 127/74
--- NOTE | 2020-02-01 17:13 | IPNPDOC ---
Text Note Date of Service The patient was seen on 02/01/20. NOTE Patient underwent percutaneous drainage of his abscess yesterday, had a temp up to 102 shortly after the drainage but since then has been afebrile. He reports continued mild discomfort at his mid abdomen, otherwise tolerating soft food. Tmax 102.1 at 15:15 yesterday latest T 99.6 at 6 am today looks comfortable sitting up on bed lungs clear to auscultation bilaterally regular heart rate and rhythm obese abdomen, soft, mild tender infraumbilical no guarding, percutaneous drain with bloody purulent fluid. impression: perforated appendicitis with abscess s/p percutaneous drainage Would continue iv antibiotics for another day and make sure no further febrile spikes before converting to oral antibiotics microbiology g(-)rods/g(+)rods, g(+)cocci VS,Fishbone, I+O VS, Fishbone, I+O Laboratory Tests 02/01/20 05:55 Vital Signs Date Time Temp Pulse Resp B/P (MAP) Pulse Ox O2 Delivery O2 Flow Rate FiO2 02/01/20 16:15 20 02/01/20 14:00 99.2 90 127/74 (91) 99 Room Air I&O- Last 24 Hours up to 6 AM 02/01/20 06:00 Intake Total 4200 ml Output Total 290 ml Balance 3910 ml CIERRA RAMIREZ MD Feb 01, 2020 17:12
[2020-02-01 18:00] VITALS: BP 131/74
[2020-02-01] MEDS: ACETAMINOPHEN TAB 650MG DOSE (2X325MG) PO PRN (20:52)
[2020-02-01 22:00] VITALS: BP 134/76
[2020-02-01] MEDS: KETOROLAC 30 MG/ML 1ML VIAL IV PRN (22:43)
[2020-02-02] MEDS: metroNIDAZOLE 500 MG in IV 1 EA IV SCH (05:38)
[2020-02-02] MEDS: LR 1,000 ML IV SCH (05:51)
[2020-02-02 06:00] VITALS: BP 133/76
--- NOTE | 2020-02-02 07:32 | IPNPDOC ---
Text Note Date of Service The patient was seen on 02/02/20. NOTE HD3 for perforated appendicitis with abscess still have intermittent febrile episodes, 101 last night otherwise hd stable, tolerating regular food. No vomiting, severe diarrhea. VS Tmax 101.1 2200 Tcurr 98.1 0600 I/O perc drain 80(20 overnight) - purulent Exam He looks more comfortable today. Abdomen is obese, does not seem to be distended. He has a very mild tenderness right next to the right lower quadrant drain site. The drain itself is putting less purulent material. There is no associated erythema around the drain site. Plans: continue IV abx, review of cultures show growth of multiple g(-/+) organisms, no speciation or sensitivity yet. will switch to zosyn for now. aware of PCN allergy. I will have the nurses flush the drain daily. VS,Fishbone, I+O VS, Fishbone, I+O Vital Signs Date Time Temp Pulse Resp B/P (MAP) Pulse Ox O2 Delivery O2 Flow Rate FiO2 02/02/20 06:00 98.1 96 19 133/76 (95) 97 Room Air I&O- Last 24 Hours up to 6 AM 02/02/20 06:00 Intake Total 2890 ml Output Total 50 ml Balance 2840 ml CIERRA RAMIREZ MD Feb 02, 2020 07:32
[2020-02-02 07:36] LABS: BASO % 0.3 % (0.0-1.0); EOS # 0.2 10^3/uL (0.0-0.5); EOS % 1.3 % (0.0-3.0); HEMOGLOBIN 11.3 g/dl (13.5-17.5); LYMPH # 1.2 10^3/uL (1.5-5.0); LYMPH % 10.2 % (24.0-44.0); MEAN CORPUSCULAR HEMOGLOBIN 29.4 pg (27.0-33.0); MEAN CORPUSCULAR HGB CONC 33.2 g/dl (32.0-36.5); MEAN CORPUSCULAR VOLUME 88.5 fl (80.0-96.0); MONO # 1.2 10^3/uL (0.0-0.8); MONO % 10.4 % (0.0-5.0); NEUTROPHILS # 8.7 10^3/uL (1.5-8.5); NEUTROPHILS % 76.7 % (36.0-66.0); PLATELET COUNT, AUTOMATED 296 10^3/uL (150-450); RED BLOOD COUNT 3.84 10^6/uL (4.30-6.10); WHITE BLOOD COUNT 11.3 10^3/uL (4.0-10.0)
[2020-02-02 08:07] LABS: BLOOD UREA NITROGEN 7 MG/DL (7-18); CALCIUM LEVEL 7.9 MG/DL (8.5-10.1); CARBON DIOXIDE LEVEL 26 MEQ/L (21-32); CHLORIDE LEVEL 105 MEQ/L (98-107); GLOMERULAR FILTRATION RATE > 60.0 (>60); GLUCOSE, FASTING 84 MG/DL (70-100); POTASSIUM SERUM 3.3 MEQ/L (3.5-5.1); SODIUM LEVEL 137 MEQ/L (136-145)
[2020-02-02] MEDS: ENOXAPARIN 40MG/0.4ML SYRINGE (J1650 PER 10MG) SC SCH (08:32)
[2020-02-02] MEDS: PIPERACILLIN/TAZOBACTAM SOD 3.375 GM in D5W MINI-BAG PLUS 50 ML IV SCH ×3 (08:32→20:34)
[2020-02-02 14:00] VITALS: BP 107/71
[2020-02-02 22:00] VITALS: BP 131/85
[2020-02-03] MEDS: PERCOCET 5MG/325MG TAB PO PRN (01:51)
[2020-02-03] MEDS: PIPERACILLIN/TAZOBACTAM SOD 3.375 GM in D5W MINI-BAG PLUS 50 ML IV SCH ×2 (01:52→08:43)
[2020-02-03 06:00] VITALS: BP 131/83
[2020-02-03 06:31] LABS: BASO # 0.1 10^3/uL (0.0-0.2); BASO % 0.5 % (0.0-1.0); EOS # 0.2 10^3/uL (0.0-0.5); EOS % 2.5 % (0.0-3.0); HEMATOCRIT 33.9 % (42.0-52.0); HEMOGLOBIN 10.8 g/dl (13.5-17.5); LYMPH # 1.6 10^3/uL (1.5-5.0); LYMPH % 17.7 % (24.0-44.0); MEAN CORPUSCULAR HEMOGLOBIN 28.7 pg (27.0-33.0); MEAN CORPUSCULAR HGB CONC 31.9 g/dl (32.0-36.5); MEAN CORPUSCULAR VOLUME 90.2 fl (80.0-96.0); MONO # 1.1 10^3/uL (0.0-0.8); MONO % 12.3 % (0.0-5.0); NEUTROPHILS # 5.9 10^3/uL (1.5-8.5); PLATELET COUNT, AUTOMATED 310 10^3/uL (150-450); RED BLOOD COUNT 3.76 10^6/uL (4.30-6.10); WHITE BLOOD COUNT 9.1 10^3/uL (4.0-10.0)
[2020-02-03 07:05] LABS: BLOOD UREA NITROGEN 6 MG/DL (7-18); CALCIUM LEVEL 8.1 MG/DL (8.5-10.1); CARBON DIOXIDE LEVEL 29 MEQ/L (21-32); CHLORIDE LEVEL 104 MEQ/L (98-107); CREATININE FOR GFR 0.73 MG/DL (0.70-1.30); GLOMERULAR FILTRATION RATE > 60.0 (>60); GLUCOSE, FASTING 81 MG/DL (70-100); POTASSIUM SERUM 3.2 MEQ/L (3.5-5.1); SODIUM LEVEL 139 MEQ/L (136-145)
[2020-02-03] MEDS: ENOXAPARIN 40MG/0.4ML SYRINGE (J1650 PER 10MG) SC SCH (08:43)
[2020-02-03] MEDS ORDERED: LEVO750T14 PO (08:49)
[2020-02-03] MEDS ORDERED: METR-265 PO (08:49)
[2020-02-03] MEDS ORDERED: PERCOCET PO (08:49)
--- NOTE | 2020-03-15 00:07 | DS.PDOC ---
Discharge Summary General Date of Admission Jan 30, 2020 at 22:17 Date of Discharge 02/03/2020 Attending Physician: CIERRA RAMIREZ MD Discharge Summary PROCEDURES PERFORMED DURING STAY: Percutaneous drainage of intra-abdominal abscess by radiology CT-guided. ADMITTING DIAGNOSES: 1. Acute appendicitis with perforation and abscess 2. Morbid obesity with a BMI of 50.7. DISCHARGE DIAGNOSES: 1. Acute appendicitis with perforation and abscess 2. Morbid obesity with a BMI of 50.7. COMPLICATIONS/CHIEF COMPLAINT: Acute Appendicitis With Appendiceal Abcess. HISTORY OF PRESENT ILLNESS: Patient is a 34-year-old male who reports that he has been having on and off fever since January 20. Patient reports that on that day he had some mild to moderate grade fever that extends to about a 3 day period. He was also having nonbloody diarrhea at that time. That was a , by Friday he was seen in the urgent care setting. He was suspected to be having some flulike symptoms and was instructed to make sure he is hydrated. He was feeling mildly better in the early part of the week to the point that he was able to return to work on Friday. He did have to go home feeling mildly tired. By Friday he was again having some low-grade fever as well as some loose stools as well as feeling uncomfortable in his abdomen. By Friday he was again having some moderate to high-grade fever and thus he presented himself to the emergency department. Throughout this time he does report that feels mildly uncomfortable towards the center of his abdomen, almost a sensation that he has to go to the bathroom. He is able to hold things down in terms of his diet and he was drinking a good amount of Gatorade to hydrate himself. He denies any overt nausea or vomiting. He continues to have some mild loose stools though this has improved from the initial presentation 10 days prior. He denies any severe abdominal discomfort that limits his activity. In the emergency room he was found to have evidence for perforated acute appendicitis and thus he was subsequently admitted to ms. HOSPITAL COURSE: Patient was admitted to the medical surgical floor and started on levofloxacin and metronidazole IV for coverage of the intra-abdominal abscess seen on the CT of the abdomen and pelvis. A CT-guided drainage of the intra-abdominal abscess was range from radiology which was performed the following day. This drained purulent fluid. Patient was febrile on admission with temperature of 202. He gradually deeper past. Last febrile temperature recorded was on January 31 which was at the hospital day #2. He was advanced to clear liquids which she tolerated and was advanced to regular diet. We monitored for drainage and initial drainage was up ports of 260 and this gradually came down to 20 g bowels during the last day. Since the drain was continued to be purulent, he was discharged home with the drain. He was subsequently discharged home on levofloxacin and metronidazole orally DISCHARGE MEDICATIONS: Please see below. ALLERGIES: Please see below. PHYSICAL EXAMINATION ON DISCHARGE: VITAL SIGNS: Please see below. GENERAL:. Comfortable, no acute distress HEENT: Was cephalic, atraumatic, lips and mucosa are moist NECK: Short, supple, no obvious jugular venous distention CARDIOVASCULAR EXAMINATION: Regular heart rate and rhythm RESPIRATORY EXAMINATION: Are breath sounds auscultation bilaterally without wheezing ABDOMINAL EXAMINATION: Morbidly obese, soft, nondistended. He has a pigtail catheter coming just below the umbilicus at the midline draining small amount of purulent material. Minimally tender over the right lower quadrant area, no rebound or guarding EXTREMITIES: No significant extremity edema SKIN: Warm and dry NEUROLOGICAL EXAMINATION: Awake, alert and oriented LABORATORY DATA: Please see below. IMAGING: CT abdomen and pelvis, CT-guided drainage of intra-abdominal abscess PROGNOSIS: Good ACTIVITY: As tolerated. DIET: As tolerated DISCHARGE PLAN: Patient will be discharged home on oral antibiotics for an additional 7 day course. At the time of discharge: Show growth of Escherichia coli, anaerobic culture is pending. He will keep the drain and follow-up with me in the clinic in 1 week DISPOSITION: 01 Home, Self-Care. DISCHARGE INSTRUCTIONS: 1. Call the office to arrange for follow-up in one week. 2. Empty drain at least once daily, record output ITEMS TO FOLLOWUP ON ON OUTPATIENT: 1. Drain in character and output. DISCHARGE CONDITION: Stable. TIME SPENT ON DISCHARGE: Greater than 30 minutes. Discharge Medications Scheduled Famotidine (Famotidine) 20 Mg Tablet, 20 MG PO DAILY, (Reported) Metronidazole (Metronidazole) 500 Mg Tablet, 500 MG PO TID levoFLOXacin (levoFLOXacin) 750 Mg Tablet, 750 MG PO DAILY Scheduled PRN Oxycodone/Acetaminophen (Oxycodone-Acetaminophen 5-325) 1 Each Tablet, 1 TAB PO Q6HP PRN for MILD/MODERATE PAIN (PS 1-7) Allergies Coded Allergies: Penicillins (Verified Allergy, Mild, HIVES, 03/06/19) Sulfa (Sulfonamide Antibiotics) (Verified Allergy, Mild, HIVES, 03/06/19) erythromycin base (Verified Allergy, Mild, HIVES, 03/06/19) CIERRA RAMIREZ MD Mar 15, 2020 00:07
== END 2020-02-03 11:55 | disposition home or self-care (01) | DRG 248 ==
LOC: M ED 17:49 → M ED INP 22:17 → ENRESERV 23:03 → M MSPAV 01-31 01:00
PROVIDERS: ADMIT Surgery; ATTEND Surgery
PROC: 0W9G30Z Drainage of Peritoneal Cavity with Drainage Device, Percutaneous Approach (ICD-10-PCS; principal; 2020-01-31 09:30)
DX: K35.21 Acute appendicitis with generalized peritonitis, with abscess (principal); Z68.43 Body mass index [BMI] 50.0-59.9, adult; E66.01 Morbid (severe) obesity due to excess calories; F17.200 Nicotine dependence, unspecified, uncomplicated; G47.33 Obstructive sleep apnea (adult) (pediatric); B96.20 Unspecified Escherichia coli [E. coli] as the cause of diseases classified elsewhere; Z88.0 Allergy status to penicillin; Z88.1 Allergy status to other antibiotic agents; Z88.2 Allergy status to sulfonamides; Z20.828 Contact with and (suspected) exposure to other viral communicable diseases; Z79.899 Other long term (current) drug therapy

== ENCOUNTER → 2020-03-26 | Outpatient (CLI) | payer BC ==
[~2020-03-26] MED LIST changes: +CIPR-249 PO; +FAMO1TAB11 PO; +LEVO750T14 PO; +METR-265 PO; +METR375C3 PO; +PERCOCET PO; -SIME40TA PO; +SIME80CH6 PO
== END ==
LOC: M LABSMTC 10:46
PROVIDERS: ATTEND Anesthesiology
DX: Z01.812 Encounter for preprocedural laboratory examination (principal); Z20.822 Contact with and (suspected) exposure to COVID-19

== ENCOUNTER 2020-03-31 10:36 | Day surgery (SDC) | payer BC ==
[~2020-03-31] VITALS: Ht 182.9 cm; Wt 171.4 kg
[2020-03-31] VITALS (7 sets, daily range): BP systolic 111–141; BP diastolic 71–89
[~2020-03-31 10:36] MED LIST changes: -CIPR-249 PO; +CelecoXIB (CeleBREX) 100 MG CAP PO ONE; +KETOROLAC 60MG 2ML VIAL As Ordered ONE; +LR 1,000 ML IV ONE; -METR375C3 PO; +SIME40TA PO; -SIME80CH6 PO; +SUGAMMADEX SODIUM 500 MG/5 ML VIAL (BRIDION) As Ordered ONE
--- OUTSIDE RECORDS SUMMARY | 2020-03-31 10:41 | CCD | Continuity of Care Document ---
Author Author Richi JORGENSEN WORSHIP DIRECTOR Organization Unknown Address [address], [address] [place] [address] Phone [phone] Care Team Providers Care Data Warehouse Developer Name Role Phone Brenna Collins R.N. AUTM [phone] Parul Stovall AUTM [phone] Sdio AUTM [phone] Faisal Mercedes M.D. AUTM [phone] Problems Active Problems Provider Date Allergic asthma without status asthmaticus Markos anthony M.D. Onset: 05/03/2019 Social History Type Date Description Comments Sex Unknown ETOH Use Denies alcohol use Tobacco Use Start: Unknown Patient is a current smoker, smo kes every day 1 ppd Recreational Drug Use Denies Drug Use Allergies, Adverse Reactions, Alerts Active Allergies Reaction Severity Comments Date Penicillin 02/04/2018 Erythromycin 02/04/2018 Sulfa 02/04/2018 Rhinocort 02/04/2018 Medications Active Medications SIG Qnty Indications Ordering Provide r Date Famotidine 20mg Tablets 1 tab by mouth twice a day ( fish filleter on empty stomach and at bedtime) - take for 8 weeks and then taper off.. 60tabs Markos Briceño M.D. 0 09/13/2019 Levofloxacin 500mg Tablets 1 by mouth 2 x every day Unknown Metronidazole 500mg Tablets one tab by mouth three a day Unknown Immunizations Description No Information Available Vital Signs Date Vital Result Comment 02/17/2020 3:01pm BP Systolic 164 mmHg BP Diastolic 92 mmHg Height 72 inches 6'0" Weight 375.38 lb BMI (Body Mass Index) 50.9 kg/m2 [place] Body Weight 178 lb Weight 170.270 kg BSA (Body Surface Area) 2.78 m2 02/14/2020 2:18pm BP Systolic 140 mmHg BP Diastolic 72 mmHg Height 72 inches 6'0" Weight 374.00 lb BMI (Body Mass Index) 50.7 kg/m2 [place] Body Weight 178 lb Weight 169.646 kg BSA (Body Surface Area) 2.78 m2 Results Description No Information Available Procedures Description No Information Available Medical Devices Description No Information Available Encounters Type Date Location Provider Dx Diagnosis Office Visit 02/10/2020 10:30a [facility] Hi small NP K35.21 Acute appendicitis with gen peritonitis, with abscess Z48.89 Encounter for other specifie d surgical aftercare Assessments Date Code Description Provider 02/10/2020 K35.21 Acute appendicitis with generali zed peritonitis, with abscess Hi Jorgensen NP 02/10/2020 Z48.89 Encounter for other specified crain rgical aftercare Hi Jorgensen NP Plan of Treatment Future Appointment(s):* 03/14/2020 9:20 am - Anthony Escudero MD at [facility] Functional Status Description No Information Available Mental Status Description No Information Available Referrals Refer to Reason for Referral Status Appt Date Markos Briceño M.D. Scheduled 02/[address] [place] [address], [place] [id number] [phone]
--- OUTSIDE RECORDS SUMMARY | 2020-03-31 10:41 | CCD ---
Author Author [facility] Organization [facility] Address Unknown Phone Unavailable Care Team Providers Care Hvac/R Service Technician Name Role Phone Servage, Brenna Unavailable PROBLEMS Type Condition ICD9-CM Code [id number] Code Onset Dates Condition S tatus SNOMED Code Notes Problem Acanthosis nigricans L83 Active 462078013 Problem BMI 45.0-49.9, adult Z68.42 Active 658746531 Problem Reflux gastritis K29.60 Active 59681276 Problem Erectile dysfunction, unspecified erectile dysfunction typ e N52.9 Active 201672658 Problem Snoring R06.83 Active 08007577 Problem Fatty liver K76.0 Active 911503237 Problem Tobacco abuse Z72.0 Active 382832950 Problem Nonspecific chest pain R07.9 Active 91202146 Problem Sleep apnea in adult G47.30 Active 51558440 Problem Swelling R60.9 Active 79651998 Problem Dental caries K02.9 Active 10750835 ALLERGIES Allergen (clinical drug ingredient) Drug/Non Drug Allergy do cumented on EMR Reaction Allergy Type Onset Date Status erythromycin Erythromycin([facility] Code:[address]-74) Hives Drug All ergy Active Sulfa (for allergy use only) Hives Drug Allergy Active Penicillin (For Allergies Use Only) Hives Drug Allerg y Active ENCOUNTERS from 1983 to 2020-02-22 Encounter Location Date Provider Diagnosis [address] [address] Jan, Brenna Servage Appendiceal abscess K35.33 IMMUNIZATIONS No Information SOCIAL HISTORY Tobacco Use: Social History Observation Description Date Details (start date - stop date) Current Smoker Sex Assigned At : Social History Observation Description Sex Assigned At Unknown Audit Question Answer Notes Total Score: 5 Interpretation: Alcohol Education Sexual Hx: Question Answer Notes Had sex in the last 12 months (vaginal, oral, or anal)? Yes Have you ever had an STD? No Prevention Strategies discussed: Other with Women only Use protection? No Drug and Alcohol Question Answer Notes Total Score: 0 Interpretation: No problems reported Alcohol Screening: Question Answer Notes Did you have a drink containing alcohol in the past year? Ye s Points 1 Interpretation Negative How often did you have six or more drinks on one occas ion in the past year? Never (0 points) How many drinks did you have on a typica l day when you were drinking in the past year? 1 or 2 (0 points) How often did you have a drink containing alcohol in t he past year? Monthly or less (1 point) BMI Care Goal Follow-Up Question Answer Notes Above Normal BMI Follow-Up Dietary management educatio n, guidance, and counseling Tobacco Use: Question Answer Notes Are you a: current smoker Patient counseled on the dangers of tobacco use and urged to quit: 09/01/2017 How many cigarettes a day do you smoke? 11-20 Are you interested in quitting? Thinking about quitting REASON FOR REFERRAL No Information VITAL SIGNS Weight 373 lbs Jan, Height 6'2" in Jan, BMI 47.89 kg/m2 Jan, Heart Rate 100 /min Jan, Respiratory Rate 18 /min Jan, Temperature 97.2 degrees Fahrenheit Jan, Oximetry 98% Jan, Blood pressure systolic 150 mm Hg Jan, Blood pressure diastolic 80 mm Hg Jan, MEDICATIONS Medication SIG (Take, Route, Frequency, Duration) Notes Start Da te End Date Status Viagra 25 MG 1 tablet as needed Orally Once a day for 30 day(s) Nov, Not-Taking Tylenol 325 MG 2 tablet as needed Orally every 4 hrs/prn Not-Taking Pantoprazole Sodium 40 MG 1 tablet Orally Once a day, for 30 days Active Oxycodone-Acetaminophen 5-325 MG 1 tablet as needed Or ally every 6 hrs as needed for pain-not to exceed 3 per day Jan, Not-Taking PROCEDURES No Information RESULTS No Results REASON FOR VISIT [facility];02/02: Acute Appendicitis , Acute Appendicitis with appendic eal abscess-Dr. Escudero MEDICAL (GENERAL) HISTORY Type Description Date Medical History tobacco abuse 13 years 1 pa ck per day-quit 05/03/16 then restarted 07/17 Medical History mono Medical History tonsilitis Medical History fractured right shoulder age 12, playing football. (fx growth plate) Medical History 06/04/2016, [place], stre ss tests, study was negative for ischemia at maximal workload, patient has impaired functional aerobic capacity. No exercise-induced arrhythmias. Medical History type a preexcitation pattern on ECG per cardiology 05/16/2016 Medical History diagnosed with sleep apnea, cannot tolerate machine, return to [facility] Medical History 03/06/[address] Abd minimal dif fuse fatty infiltration of the liver. Surgical History Tubes in ears age 1 Hospitalization History [facility] 1984 Goals Section No Information Health Concerns No Information MEDICAL EQUIPMENT No Information MENTAL STATUS No Information FUNCTIONAL STATUS No Information ASSESSMENTS Encounter Date Diagnosis Assessment Notes Treatment Notes Treatm ent Clinical Notes Jan, Appendiceal abscess (ICD-10 - K35.33) Hospital f/u appt. events of admission, imaging studies, labs reviewed. Med list reconciled folllow up with surgeon, improved today. PLAN OF TREATMENT Treatment Notes Assessment Notes Clinical Notes Appendiceal abscess Hospital f/u appt. e vents of admission, imaging studies, labs reviewed. Med list reconciledfolllow up with surgeon, improved today. Next Appt Details June 2020 annual wellness Reason: Insurance Providers Payer Name Payer Address Payer Phone Insured Name Patient Relati onship to Insured Coverage Start Date Coverage End Date BCBS J[employer]UA ERWIN PPO [phone] [facility] [place] [address] [place] self
--- OUTSIDE RECORDS SUMMARY | 2020-03-31 10:41 | CCD ---
Author Author [facility] Organization [facility] Address Unknown Phone Unavailable Care Team Providers Care Supervisor Fertilizer Processing Name Role Phone Mingo Ann Unavailable PROBLEMS Type Condition ICD9-CM Code [id number] Code Onset Dates Condition S tatus SNOMED Code Notes Problem Reflux gastritis K29.60 Active 93328247 Problem Nonspecific chest pain R07.9 Active 37787597 Problem Sleep apnea in adult G47.30 Active 75665182 He has been diagnosed with sleep apnea in the past. He is not tolerant of therapy. Problem Tobacco abuse Z72.0 Active 785071445 He has a gain been advised to stop smoking. Problem Body mass index [BMI] 45.0-49.9, adult Z68.42 A ctive 882582519 Problem Acanthosis nigricans L83 Active 867208112 Problem Morbid (severe) obesity due to excess calories E66 .01 Active 086543542 Problem Snoring R06.83 Active 62439328 Problem Swelling R60.9 Active 13003016 Problem Dental caries K02.9 Active 76614047 Problem Erectile dysfunction, unspecified erectile dysfunction typ e N52.9 Active 255206151 Problem Fatty liver K76.0 Active 044501122 ALLERGIES Allergen (clinical drug ingredient) Drug/Non Drug Allergy do cumented on EMR Reaction Allergy Type Onset Date Status erythromycin Erythromycin([facility] Code:[address]-77) Hives Drug All ergy Active Sulfa (for allergy use only) Hives Drug Allergy Active Penicillin (For Allergies Use Only) Hives Drug Allerg y Active ENCOUNTERS from 1983 to 2020-03-21 Encounter Location Date Provider Diagnosis [address] [place] [address] Mar, Mingo Ann Pre-op evaluation Z01.818 ; Appendiceal abscess K35.33 ; Body mass index [BMI] 45.0-49.9, adult Z68.42 ; Morbid (severe) obesity due to excess calories E66.01 ; Sleep apnea in adult G47.30 and Tobacco abuse Z72.0 IMMUNIZATIONS No Information SOCIAL HISTORY Tobacco Use: [...] FOR REFERRAL No Information VITAL SIGNS Weight 377 lbs Mar, Height 6'2" in Mar, BMI 48.40 kg/m2 Mar, Heart Rate 111 /min Mar, Respiratory Rate 18 /min Mar, Temperature 97% degrees Fahrenheit Mar, Oximetry 97% Mar, Blood pressure systolic 142 mm Hg Mar, Blood pressure diastolic 84 mm Hg Mar, MEDICATIONS Medication SIG (Take, Route, Frequency, Duration) Notes Start Da te End Date Status Viagra 25 MG 1 tablet as needed Orally Once a day for 30 day(s) Nov, Not-Taking Tylenol 325 MG 2 tablet as needed Orally every 4 hrs/prn Not-Taking Pantoprazole Sodium 40 MG 1 tablet Orally Once a day, for 30 days Active PROCEDURES No Information RESULTS No Results REASON FOR VISIT Pre-operative clearance for lap appendectomy preformed by Dr. Escudero at [facility] on March 31, 2020 under anesthesia. DX: K35.21 MEDICAL (GENERAL) HISTORY Type Description Date Medical History tobacco abuse 13 years 1 pa ck per day-quit 05/03/16 then restarted 07/17 Medical History mono Medical History tonsilitis Medical History fractured right shoulder age 12, playing football. (fx growth plate) Medical History 06/04/2016, [place], jitendra ss tests, study was negative for ischemia at maximal workload, patient has impaired functional aerobic capacity. No exercise-induced arrhythmias. Medical History type a preexcitation pattern on ECG per cardiology 05/16/2016 Medical History diagnosed with sleep apnea, cannot tolerate machine, return to [facility] Medical History 03/06/[address] Abd minimal dif fuse fatty infiltration of the liver. Surgical History Tubes in ears age 1 Hospitalization History [facility] 1985 Goals Section No Information Health Concerns No Information MEDICAL EQUIPMENT No Information MENTAL STATUS No Information FUNCTIONAL STATUS No Information ASSESSMENTS Encounter Date Diagnosis Assessment Notes Treatment Notes Treatm ent Clinical Notes Mar, Pre-op evaluation (ICD-10 - Z01.818) He is a gentleman who is scheduled for laparoscopic appendectomy in the near future. His medical issues appear to be stable; he has morbid obesity, which does raise his risk of complications from surgical intervention.. 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 He carries a diagnosis of sleep apnea but is not using therapy because he cannot tolerate it. He does not have excessive daytime sleepiness. He smokes and has been advised to quit. He does not appear to have any readily reversible conditions which, if corrected, would improve the surgical risk. I would proceed with the operation. I assume there will be some preoperative lab work prior to surgery and I will review that when it becomes available. There is no need to hold any medications preoperatively. He will have be watched in the recovery area for apneic episodes. Mar, Appendiceal abscess (ICD-10 - K35.33) Th is was treated with external drainage in late January through early February 2020 and he is now scheduled for appendectomy. Mar, Body mass index [BMI] 45.0-49.9, adult (ICD-10 - Z68.42) Mar, Morbid (severe) obesity due to excess calories ( ICD-10 - E66.01) Mar, Sleep apnea in adult (ICD-10 - G47.30) Charan ornelas has been diagnosed with sleep apnea in the past. He is not tolerant of therapy. Mar, Tobacco abuse (ICD-10 - Z72.0) He has ag ain been advised to stop smoking. PLAN OF TREATMENT Next Appt Details 6 Months with Brenna Reason: Insurance Providers Payer Name Payer Address Payer Phone Insured Name Patient Relati onship to Insured Coverage Start Date Coverage End Date BCBS JOSHUA ERWIN PPO [phone] [facility] Lexara [place] [facility] [place] [address] [place] self
--- OUTSIDE RECORDS SUMMARY | 2020-03-31 10:41 | CCD | Continuity of Care Document ---
Author Author JAMES CURTIS, Richi Garcia Organization Unknown Address [address] [facility] [address] [place] [address] Phone [phone] Care Team Providers Care Production Operations Engineer Name Role Phone Brenna Collins R.N. AUTM [phone] Parul Stovall AUTM [phone] Sdio AUTM [phone] Faisal Mercedes M.D. AUTM [phone] Problems Active Problems Provider Date Allergic asthma [...] SIG Qnty Indications Ordering Provide r Date Gavilyte-N With Flavor Pack 420gm Solution Rec prepare solution and drink the liquid as per the pre-procedure instructions. 4000ml Prabhakar Briceño M.D. 2019 Magnesium Citrate 1.745GM/30ML Lizette ution 10 oz bottle for bowel preparation prior to procedure ( take as per the instruction sheet). 296ml Prabhakar Briceño M.D. 2019 Famotidine 20mg Tablets 1 tab by mouth twice a day ( metrology engineer on empty stomach and at bedtime) - take for 8 weeks and then taper off.. 60tabs Markos Briceño M.D. 0 09/13/2019 Levofloxacin 500mg Tablets 1 by mouth 2 x every day Unknown Metronidazole 500mg Tablets one tab by mouth three a day Unknown Immunizations Description No Information Available Vital Signs Date Vital Result Comment 03/14/2020 9:22am BP Systolic 135 mmHg BP Diastolic 92 mmHg Height 72 inches 6'0" Weight 378.38 lb BMI (Body Mass Index) 51.3 kg/m2 [place] Body Weight 178 lb Weight 171.631 kg BSA (Body Surface Area) 2.79 m2 02/17/2020 3:01pm BP Systolic 164 mmHg BP Diastolic 92 mmHg Height 72 inches 6'0" Weight 375.38 lb BMI (Body Mass Index) 50.9 kg/m2 [place] Body Weight 178 lb Weight 170.270 kg BSA (Body Surface Area) 2.78 m2 Results Description No Information Available Procedures Description No Information Available Medical Devices Description No Information Available Encounters Type Date Location Provider Dx Diagnosis Office Visit 02/17/2020 3:00p [facility] Hi small NP K35.21 Acute appendicitis with gen peritonitis, with abscess Z48.89 Encounter for other specifie d surgical aftercare Office Visit 02/14/2020 2:10p [facility] Alvarez Briceño M.D. R93.3 Abnormal findings on dx imag ing of prt digestive tract K35.21 Acute appendicitis with gen peritonitis, with abscess Office Visit 02/10/2020 10:30a [facility] Hi small NP K35.21 Acute appendicitis with gen peritonitis, with abscess Z48.89 Encounter for other specifie d surgical aftercare Assessments Date Code Description Provider 02/17/2020 K35.21 Acute appendicitis with generali zed peritonitis, with abscess Hi Bacon NP 02/17/2020 Z48.89 Encounter for other specified crain rgical aftercare Hi Bacon NP 02/14/2020 R93.3 Abnormal findings on diagnostic imaging of other parts of digestive tract Markos Briceño M.D. 02/14/2020 K35.21 Acute appendicitis with generali zed peritonitis, with abscess Markos Briceño M.D. 02/10/2020 K35.21 Acute appendicitis with generali zed peritonitis, with abscess Hi Bacon NP 02/10/2020 Z48.89 Encounter for other specified crain rgical aftercare Hi Bacon NP Plan of Treatment 02/17/2020 - Hi Bacon NP* K35.21 Acute appendicitis with generalized peritonitis, with abscess* Comments:* S/P drainage of appendiceal abscess. Call for increased abdominal pain, fever, chills, nausea or vomiting. Appt made to follow up with Dr. Escudero in March. Return to work 02/21/2020 no restrictions. * Z48.89 Encounter for other specified surgical aftercare Functional Status Description No Information Available Mental Status Description No Information Available Referrals Refer to Reason for Referral Status Appt Date Markos Briceño M.D. Scheduled 02/[address] [place] [address], [address] [place] [address] [phone]
--- OUTSIDE RECORDS SUMMARY | 2020-03-31 10:41 | CCD | Continuity of Care Document ---
Author Richi Balbuena M.D. Organization Unknown Address [address] [place] [address], [address] [place] [address] Phone [phone] Care Team Providers Care Final Coat Sprayer Name Role Phone Brenna Collins R.N. AUTM [phone] Parul Stovall AUTM [phone] Sdio AUTM [phone] Faisal Mercedes M.D. AUTM [phone] Problems Active Problems Provider Date Allergic asthma [...] tab by mouth twice a day ( airways control specialist on empty stomach and at bedtime) - take for 8 weeks and then taper off.. 60tabs Markos Briceño M.D. 0 09/13/2019 Immunizations Description No Information Available Vital Signs Date Vital Result Comment 02/14/2020 2:18pm BP Systolic 140 mmHg BP Diastolic 72 mmHg Height 72 inches 6'0" Weight 374.00 lb BMI (Body Mass Index) 50.7 kg/m2 [place] Body Weight 178 lb Weight 169.646 kg BSA (Body Surface Area) 2.78 m2 02/10/2020 10:26am BP Systolic 144 mmHg BP Diastolic 90 mmHg Height 72 inches 6'0" Weight 371.00 lb BMI (Body Mass Index) 50.3 kg/m2 [place] Body Weight 178 lb Weight 168.286 kg BSA (Body Surface Area) 2.77 m2 Results Test Acquired Date Facility Test Result H/L Range Note Laboratory test finding 08/17/2019 [facility] Main Lab [address] [place], [place] [id number] [phone] Pathology Request For Service (SEE NOTE) 1 1 FINAL DIAGNOSIS Stomach, antrum, biopsy: Gastric mucosa with minimal chronic inflammation and reactive changes. No H.Pylori is identified. 08/19/2019 - 1021 CLINICAL DIAGNOSIS Chronic acid reflux 08/18/2019 - 1409 GROSS DIAGNOSIS Received in formalin labeled "biopsy antrum, R/O H. pylori" consists of fragments of tissue, 0.2 x 0.1 x 0.1 cm in aggregate. All in one. -OA 08/18/2019 - 1409 Signed JACKIE GRAHAM MD 08/19/2019 1022 Procedures Date Code Description Status 08/17/2019 85460 Endoscopy Upper GI Biopsy Comple krissy [employer] Description No Information Available Encounters Type Date Location Provider Dx Diagnosis Office Visit 02/10/2020 10:30a [facility] Hi small NP K35.21 Acute appendicitis with gen peritonitis, with abscess Z48.89 Encounter for other specifie d surgical aftercare Assessments Date Code Description Provider 02/10/2020 K35.21 Acute appendicitis with generali zed peritonitis, with abscess Hi Bacon NP 02/10/2020 Z48.89 Encounter for other specified crain rgical aftercare Hi Bacon NP 08/17/2019 K21.9 Gastro-esophageal reflux disease without esophagitis Markos Briceño M.D. Plan of Treatment Future Appointment(s):* 02/17/2020 3:00 pm - Hi Bacon NP at [facility] * 03/14/2020 9:20 am - Anthony Escudero MD at [facility] Functional Status Description No Information Available Mental Status Description No Information Available Referrals Refer to Reason for Referral Status Appt Date Markos Briceño M.D. Scheduled 02/[address] [place] [address], [facility] [address] [id number] [phone]
--- OUTSIDE RECORDS SUMMARY | 2020-03-31 10:41 | CCD | Continuity of Care Document ---
Author Author Richi JORGENSEN STEWARD/STEWARDESS DECK Organization Unknown Address [address] [facility] [facility], [address] [place] [address] Phone [phone] Care Team Providers Care Hydraulic Plumber Name Role Phone Brenna Collins R.N. AUTM [phone] Parul Stovall AUTM [phone] Sdio AUTM [phone] Faisal Mercedes M.D. 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 60tabs Markos Briceño M.D. 0 09/13/2019 Immunizations Description No Information Available Vital Signs Date Vital Result Comment 02/10/2020 10:26am BP Systolic 144 mmHg BP Diastolic 90 mmHg Height 72 inches 6'0" Weight 371.00 lb BMI (Body Mass Index) 50.3 kg/m2 [place] Body Weight 178 lb Weight 168.286 kg BSA (Body Surface Area) 2.77 m2 05/06/2019 1:09pm BP Systolic 128 mmHg BP Diastolic 76 mmHg Height 72 inches 6'0" Weight 380.00 lb BMI (Body Mass Index) 51.5 kg/m2 [place] Body Weight 178 lb Weight 172.368 kg BSA (Body Surface Area) 2.80 m2 Results Test Acquired Date Facility Test Result H/L Range Note Laboratory test finding 08/17/2019 [facility] Main Lab [address] [place] [address] [phone] Pathology Request For Service (SEE NOTE) 1 [...] 1022 Procedures Date Code Description Status 08/17/2019 89924 Endoscopy Upper GI Biopsy Comple krissy [employer] Description No Information Available Encounters Description No Information Available Assessments Date Code Description Provider 08/17/2019 K21.9 Gastro-esophageal reflux disease without esophagitis Markos Briceño M.D. Plan of Treatment Future Appointment(s):* 02/17/2020 1:30 pm - Hi Jorgensen NP at [facility] * 03/14/2020 9:20 am - Anthony Escudero MD at [facility] * 02/14/2020 2:10 pm - Markos Briceño M.D. at [facility]GI [facility] 05/06/2019 - Markos Briceño M.D.* K21.0 Gastro-esophageal reflux disease with esophagitis * K76.0 Fatty (change of) liver, not elsewhere classified * * New Orders:* Endoscopy, Ordered: 05/06/19 * Comments:* Impression:-- Chronic acid reflux with dyspepsia -- need to r/o GERD with Esophagitis vs Esophageal ulcers vs PUD vs Hiatal hernia vs r/o celiac disease. -- Fatty liver with normal liver panel and prior alcohol use -- DDx- NAFLD vs alcohol related liver disease.-- Obesity BMI 51. * Recommendations:* -- Patient educated on the differential diagnoses in detail and all questions answered. 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 -- Anti reflux measures reinforced; Advised to avoid being overweight/obese; avoid acid reflux inducing food: excessive caffeine, chocolate, alcohol, peppermint and fatty foods; , Avoid large and late meal: eating three or more hours before bedtime. Printed material provided to patient. -- Will schedule for EGD. The procedure, its indications, risks (bleeding, perforation, infection, hypotension, respiratory depression, allergy, need for endotracheal intubation, surgery, or even ), benefits, limitations (e.g., missing a lesion), and the alternatives (radiographic studies) were explained to the patient who understood and agreed for the test.. -- Instructions given about having a friend or family member for taking patient back home after the procedure. -- For fatty liver, patient is educated about alcohol cessation and weight loss atleast 10 % over the next 6 months. -- Post procedure appoint ment based on EGD findings. -- Follow up with PMD for routine medical care and other age appropriate health maintenance. Functional Status Description No Information Available Mental Status Description No Information Available Referrals Refer to Reason for Referral Status Appt Date Markos Briceño M.D. Scheduled 02/[address] [place] [address], [address] [place] [address] [phone]
--- OUTSIDE RECORDS SUMMARY | 2020-03-31 10:42 | CCD ---
Author Author [facility] Organization [facility] Address Unknown Phone Unavailable Care Team Providers Care Director Of Loss Prevention Name Role Phone Hanh Bacon Unavailable Unavailable Bruno, Hanh Hi Unavailable Unavailable Arleen, Hanh Hi Unavailable Unavailable Bruno, Hanh Hi Unavailable Unavailable Arleen, Hanh Hi Unavailable Unavailable Bruno, Hanh Hi Unavailable Unavailable Bruno, Hanh Hi Unavailable Unavailable Bruno, Hanh Hi Unavailable Unavailable Ximena LEÓN MD Unavailable Unavailable Ximena LEÓN MD Unavailable Unavailable Ximena LEÓN MD Unavailable Unavailable Ximena LEÓN MD Unavailable Unavailable Ximena LEÓN MD Unavailable Unavailable Ximena LEÓN MD Unavailable Unavailable Ximena LEÓN MD Unavailable Unavailable Ximena LEÓN MD Unavailable Unavailable Ximena LEÓN MD Unavailable Unavailable Ximena LEÓN MD Unavailable Unavailable Ximena LEÓN MD Unavailable Unavailable Ximena LEÓN MD Unavailable Unavailable Ximena LEÓN MD Unavailable Unavailable Ximena LEÓN MD Unavailable Unavailable Ximena LEÓNYA MD Unavailable Unavailable CHANDRALA, K NELLY MD Unavailable Unavailable CHANDRALA, K NELLY MD Unavailable Unavailable CHANDRALA, K NELLY MD Unavailable Unavailable CHANDRALA, K NELLY MD Unavailable Unavailable CHANDRALA, K NELLY MD Unavailable Unavailable CHANDRALA, K NELLY MD Unavailable Unavailable CHANDRALA, K NELLY MD Unavailable Unavailable CHANDRALA, K NELLY MD Unavailable Unavailable CHANDRALA, K NELLY MD Unavailable Unavailable CHANDRALA, K NELLY MD Unavailable Unavailable CHANDRALA, K NELLY MD Unavailable Unavailable CHANDRALA, K NELLY MD Unavailable Unavailable CHANDRALA, K NELLY MD Unavailable Unavailable CHANDRALA, K NELLY MD Unavailable Unavailable CHANDRALA, K NELLY MD Unavailable Unavailable CHANDRALA, K NELLY MD Unavailable Unavailable CHANDRALA, K NELLY MD Unavailable Unavailable CHANDRALA, K NELLY MD Unavailable Unavailable Re-disclosure Warning The records that you are about to access may contain information from federally-assisted alcohol or drug abuse programs. If such information is present, then the following federally mandated warning applies: This information has been disclosed to you from records protected by federal confidentiality rules (42 CFR part 2). The federal rules prohibit you from making any further disclosure of this information unless further disclosure is expressly permitted by the written consent of the person to whom it pertains or as otherwise permitted by 42 CFR part 2. A general authorization for the release of medical or other information is NOT sufficient for this purpose. The Federal rules restrict any use of the information to criminally investigate or prosecute any alcohol or drug abuse patient.The records that you are about to access may contain highly sensitive health information, the redisclosure of which is protected by Article 27-F of the [facility] Public Health law. If you continue you may have access to information: Regarding HIV / AIDS; Provided by facilities licensed or operated by the [facility] Office of Mental Health; or Provided by the [facility] Office for People With Developmental Disabilities. If such information is present, then the following [facility] mandated warning applies: This information has been disclosed to you from confidential records which are protected by state law. State law prohibits you from making any further disclosure of this information without the specific written consent of the person to whom it pertains, or as otherwise permitted by law. Any unauthorized further disclosure in violation of state law may result in a fine or senior living sentence or both. A general authorization for the release of medical or other information is NOT sufficient authorization for further disc losure. Allergies and Adverse Reactions Type Description Substance Reaction Status Data Source(s ) Erythromycin Erythromycin Erythromycin 500 MG Delayed Rele ase Oral Tablet Hives Active eCW1 ([facility]) Family History Family Member Name Family Member Gender Family Member Status Date o f Status Description Data Source(s) Unknown Unknown Problem MEDENT ([facility], ) Encounters Encounter Providers Location Date Indications Data Source(s ) Outpatient [address] [place] [id number] 03/21/2020 12:00:00 AM EST eCW1 ([facility]) Office Visit Attender: Hi Ashley/Oscar/Femi/Reindl 02/17/2020 02:00:00 PM EST MEDENT ([facility], ) (TCM) Transition of Care Visit [address] [place] [phone] 02/17/2020 12:00:00 AM EST eCW1 ([facility]) Outpatient Attender: NELLY Ashley/Oscar/Neo fuller/Jaspreet 02/14/2020 01:10:00 PM EST MEDENT ([facility] Office Visit Attender: Hi Yepez/Femi/Reindl 02/10/2020 09:30:00 AM EST MEDENT ([facility], ) Outpatient 03/22/2019 05:25:00 AM EST [facility] [place] [address] [place] [id number] 03/11/2019 12:00:00 AM EST eCW1 ([facility]) [facility] [address] [facility] [phone] 03/10/2019 12:00:00 AM EST eCW1 ([facility]) [facility] [address] [facility] [phone] 03/08/2019 12:00:00 AM EST eCW1 ([facility]) [facility] [address] [facility], [facility] [phone] 03/04/2019 12:00:00 AM EST eCW1 ([facility]) Medications Medication Brand Name Start Date Product Form Dose Route Admi nistrative Instructions Pharmacy Instructions Status Indications Reaction Description Data Source(s) POLYETHYLENE GLYCOL 3350 105 MG/ML / Pot assium Chloride 0.81242 MEQ/ML / Sodium Bicarbonate 0.017 MEQ/ML / Sodium Chloride 0.0479 MEQ/ML Oral Solution [GaviLyte-N] Gavilyte-N With Flavor Pack 02/14/2020 12:00:00 AM EST active MEDENT ([facility], ) magnesium citrate 58.2 MG/ML Oral Solution Magnesium Citrate 02/14/2020 12:00:00 AM EST active MEDENT ([facility], ) Acetaminophen 325 MG / Oxycodone Hydroch loride 5 MG Oral Tablet Oxycodone- Acetaminophen 5-325 MG Oxycodone-Acetaminophen 5-325 MG 02/04/2020 12:00:00 A M EST 1.0 {tablet_as_needed} suspended Oxycodone-Acetaminophen 5-325 MG eCW1 ([facility]) 5-325 mg 02/03/2020 12:00:00 AM EST tablet 14 TAKE 1 TABLET BY MOUTH EVERY 6 HOURS NEEDED FOR MILD / MODERATE PAIN (PS 1-7) MAXIMUM DAILY DOSE = 3 TABLETS TAKE 1 TABLET BY MOUTH EVERY 6 HOURS NEEDED FOR MILD / MODERATE PAIN (PS 1-7) MAXIMUM DAILY DOSE = 3 TABLETS SOLD: 02/03/2020 [facility] Metronidazole 500 MG Oral Tablet METRONIDAZOLE 02/03/2020 12:0 0:00 AM EST tablet 42 TAKE ONE TABLET BY MOUTH THREE T IMES A DAY TAKE ONE TABLET BY MOUTH THREE TIMES A DAY SOLD: 02/03/2020 [facility] 750 mg 02/03/2020 12:00:00 AM EST tablet 14 TAKE ONE TABLET BY MOUTH EVERY DAY TAKE ONE TABLET BY MOUTH EVERY DAY SOLD: 02/03/2020 [facility] 20 mg 11/22/2019 12:00:00 AM EDT tablet 60 TAKE ONE TABLET BY MOUTH TWICE A DAY TAKE ONE TABLET BY MOUTH TWICE A DAY SOLD: 11/22/2019 [facility] 20 mg 09/15/2019 12:00:00 AM EDT tablet 60 TAKE ONE TABLET BY MOUTH TWICE A DAY 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 AND AT BEDTIME - TAKE FOR 8 WEEKS THEN TAPER OFF TAKE ONE TABLET BY MOUTH TWICE A DAY EAR LY MORNING ON AN EMPTY STOMACH AND AT BEDTIME - TAKE FOR 8 WEEKS THEN TAPER OFF SOLD: 09/15/2019 [facility] 20 mg 09/15/2019 12:00:00 AM EDT tablet 60 TAKE ONE TABLET BY MOUTH TWICE A DAY 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, ) 40 mg 03/11/2019 12:00:00 AM EST tablet,delayed release (DR/EC) 30 TAKE 1 TABLET BY MOUTH ONCE A DAY TAKE 1 TABLET BY MOUTH ONCE A DAY SOLD: 03/11/2019 [facility] 1 gram 03/11/2019 12:00:00 AM EST tablet 28 TAKE 1 TABLET BY MOUTH EMPTY STOMACH TWO TIMES A DAY BRKFST AND BED TAKE 1 TABLET BY MOUTH EMPTY STOMACH TWO TIMES A DAY BRKFST AND BED SOLD: 03/11/2019 [facility] Sucralfate 1000 MG Oral Tablet [Carafate] Carafate 1 GM Ernestina fate 1 GM 03/10/2019 12:00:00 AM EST active 1 table t on an empty stomach eCW1 ([facility]) Simethicone 80 MG Chewable Tablet Simethicone 80 MG 03/06/2019 1 2:00:00 AM EST active 1 tablet eCW1 ([facility]) 80 mg 03/06/2019 12:00:00 AM EST tablet,chewable 20 CHEW ONE TABLET BY MOUTH THREE TIMES A DAY FOR GAS CHEW ONE TABLET BY MOUTH THREE TIMES A DAY FOR GAS SOLD: 03/06/2019 [facility] 300 mg 02/13/2019 12:00:00 AM EST capsule 28 TAKE ONE CAPSULE BY MOUTH EVERY 12 HOURS FOR 14 DAYS TAKE ONE CAPSULE BY MOUTH EVERY 12 HOURS FOR 14 DAYS S OLD: 02/13/2019 [facility] Insurance Providers Payer name Policy type / Coverage type Policy ID Covered republican ID Covered republican's relationship to sinclair Policy [place] Plan Information [employer] [place]/307 [id number] SP [id number] [employer] [place]/307 [id number] SP [id number] [employer] [place] 302/307 [id number] SP [id number] [employer] B [id number] S [id number] [employer] Health Maintenance Organization (HMO) [id number] Self [id number] ANSI-Commercial [id number] ANSI-Commercial [id number] [employer] [place] 302/307 [id number] SP [id number] SELF PAY UNAVAILABLE SP UNAVAILA BLE Problems, Conditions, and Diagnoses Code Display Name Description Problem Type Effective Dates Data Source(s) E66.01 [id number] Morbid (severe) obesity due to excess wicho ories Problem 03/21/2020 12:00:00 AM EST eCW1 ([facility]) Z68.42 [id number] Body mass index [BMI] 45.0-49.9, adult Pr oblem 03/21/2020 12:00:00 AM EST eCW1 ([facility]) 88012917 Allergic asthma without status asthmatic us Allergic asthma without status asthmaticus Problem 05/03/2019 12:00:00 AM EST [facility]ENT ([facility] ) K76.0 [id number] Fatty liver Problem 03/14/2019 12:00:[address] eCW1 ([facility]) K76.0 [id number] Fatty liver Problem 03/14/2019 12:00:[address] eCW1 ([facility]) Surgeries/Procedures Procedure Description Date Indications Data Source(s) Endoscopy Upper GI Biopsy 08/17/2019 12:00:00 AM EDT MEDENT ([facility], ) Results ID Date Data Source [id number] 03/26/2020 10:30:00 AM EST [facility] Name Value Range Interpretation Code Description Data Suad rce(s) Supporting Document(s) SARS coronavirus 2 RNA Not Detected [facility] This lab was ordered by [facility] and reported by [facility]. ID Date Data Source [id number] 01/30/2020 08:31:00 PM EST [facility] Name Value Range Interpretation Code Description Data Suad rce(s) Supporting Document(s) SARS coronavirus 2 RNA [Presence] in Res piratory specimen by HERBER with probe detection [facility] This lab was ordered by [facility] a nd reported by [facility]. ID Date Data Source [id number] 01/23/2020 12:00:00 AM EST [facility] Name Value Range Interpretation Code Description Data Suad rce(s) Supporting Document(s) SARS-CoV2 Rapid Antigen [facility] This lab [facility] ordered by [facility] and reported by [facility]. ID Date Data Source [id number] 08/17/2019 03:14:00 PM EDT MEDENT ([facility], ) Name Value Range Interpretation Code Description Data Suad rce(s) Supporting Document(s) Surgical pathology study Laboratory test [facility], ) FINAL DIAGNOSIS Stomach, antrum, biopsy: Gastric mucosa with minimal chronic inflammation and reactive changes. No H.Pylori is identified. 08/19/2019 - 1021 CLINICAL DIAGNOSIS Chronic acid reflux 08/18/2019 - 140 GROSS DIAGNOSIS Received in formalin labeled "biopsy antrum, R/O H. pylori" consists of fragments of tissue, 0.2 x 0.1 x 0.1 cm in aggregate. All in one. -OA 08/18/2019 - 140 Signed JACKIE GRAHMA MD 08/19/2019 1022 ID Date Data Source [id number] 08/14/2019 09:45:00 AM EDT [facility] Name Value Range Interpretation Code Description Data Suad rce(s) Supporting Document(s) SARS CORONAVIRUS 2 RNA [facility] This lab was ordered by [facility] and reported by [facility]. Procedure Social History Code Duration Value Status Description Data Source(s ) Smoking 03/21/2020 12:00:00 AM EST Current Smoker completed Curre nt Smoker eCW1 ([facility]) Smoking 02/16/2020 12:00:00 AM EST Current Smoker completed Curre nt Smoker eCW1 ([facility]) Vital Signs ID Date Data Source UNK Name Value Range Interpretation Code Description Data Source(s) Diastolic blood pressure 84 mm[Hg] 84 mm[Hg] eCW1 ([facility]) Systolic blood pressure 142 mm[Hg] 142 mm[Hg] e CW1 ([facility]) Body temperature [degF] eCW1 ([facility]) Respiratory rate 18 /min 18 /min eCW1 ([facility]) Heart rate 111 /min 111 /min W1 ([facility]) Body mass index (BMI) [Ratio] 48.40 kg/m2 48.40 kg/m2 eCW1 ([facility]) Body height [in_i] eCW1 ([facility]) Body weight 377 [lb_av] 377 [lb_av] eCW1 ([facility]) Body surface area Derived from formula 2.79 m2 2.79 m[address] [facility] ([facility] Body weight 171.631 kg 171.[address] [facility] ([facility], ) [place] body weight 178 [lb_av] 178 [lb_av] MEDEN T ([facility]) Body mass index (BMI) [Ratio] 51.3 kg/m2 51.3 k g/m2 [facility] ([facility]) Body weight 378.38 [lb_av] 378.38 [lb_av] MEDEN T ([facility]) Body height 72 [in_i] 72 [in_i] [facility] ([facility]) 6'0" Diastolic blood pressure 92 mm[Hg] 92 mm[Hg] [facility] ([facility], ) Systolic blood pressure 135 mm[Hg] 135 mm[Hg] M EDENT ([facility]) Body surface area Derived from formula 2.78 m2 2.78 m2 [facility] Body weight 170.270 kg 170.270 [address] [facility] ([facility]) [place] body weight 178 [lb_av] 178 [lb_av] MEDEN T ([facility]) Body mass index (BMI) [Ratio] 50.9 kg/m2 50.9 k g/m2 [facility] ([facility]) Body weight 375.38 [lb_av] 375.38 [lb_av] MEDEN T ([facility]) Body height 72 [in_i] 72 [in_i] [facility] ([facility]) 6'0" Diastolic blood pressure 92 mm[Hg] 92 mm[Hg] [facility] ([facility]) Systolic blood pressure 164 mm[Hg] 164 mm[Hg] M EDENT ([facility]) Diastolic blood pressure 80 mm[Hg] 80 mm[Hg] eCW1 ([facility]) Systolic blood pressure 150 mm[Hg] 150 mm[Hg] e CW1 ([facility]) Body temperature 97.2 [degF] 97.2 [degF] eCW1 ( [facility]) Respiratory rate 18 /min 18 /min eCW1 ([facility]) Heart rate 100 /min 100 /min eCW1 ([facility]) Body mass index (BMI) [Ratio] 47.89 kg/m2 47.89 kg/m2 eCW1 ([facility]) Body height [in_i] eCW1 ([facility]) Body weight 373 [lb_av] 373 [lb_av] eCW1 ([facility]) Body surface area Derived from formula 2.78 m2 2.78 m[address] [facility] ([facility]) Body weight 169.646 kg 169.646 [address] [facility] ([facility]) [place] body weight 178 [lb_av] 178 [lb_av] MEDEN T ([facility]) Body mass index (BMI) [Ratio] 50.7 kg/m2 50.7 k g/m2 [facility] ([facility]) Body weight 374.00 [lb_av] 374.00 [lb_av] MEDEN T ([facility]) Body height 72 [in_i] 72 [in_i] [facility] ([facility]) 6'0" Diastolic blood pressure 72 mm[Hg] 72 mm[Hg] [facility] ([facility]) Systolic blood pressure 140 mm[Hg] 140 mm[Hg] [facility] ([facility]) Body surface area Derived from formula 2.77 m2 2.77 m[address] [facility] ([facility]) Body weight 168.286 kg 168.286 kg [facility] ([facility]) [place] body weight 178 [lb_av] 178 [lb_av] MEDEN T ([facility]) Body mass index (BMI) [Ratio] 50.3 kg/m2 50.3 k g/m2 [facility] ([facility]) Body weight 371.00 [lb_av] 371.00 [lb_av] MEDEN T ([facility]) Body height 72 [in_i] 72 [in_i] [facility] ([facility]) 6'0" Diastolic blood pressure 90 mm[Hg] 90 mm[Hg] [facility] ([facility]) Systolic blood pressure 144 mm[Hg] 144 mm[Hg] [facility] ([facility]) Body surface area Derived from formula 2.80 m2 2.80 m[address] [facility] ([facility]) Body weight 172.368 kg 172.[address] [facility] ([facility]) [place] body weight 178 [lb_av] 178 [lb_av] MED[facility] T ([facility]) Body mass index (BMI) [Ratio] 51.5 kg/m2 51.5 k g/m2 [facility] ([facility]) Body weight 380.00 [lb_av] 380.00 [lb_av] MEDEN T ([facility]) Body height 72 [in_i] 72 [in_i] [facility] ([facility], ) 6'0" Diastolic blood pressure 76 mm[Hg] 76 mm[Hg] [facility], ) Systolic blood pressure 128 mm[Hg] 128 mm[Hg] M [facility]ENT ([facility], ) Diastolic blood pressure 94 mm[Hg] 94 mm[Hg] eCW1 ([facility]) Systolic blood pressure 132 mm[Hg] 132 mm[Hg] e CW1 ([facility]) Body temperature 98 [degF] 98 [degF] eCW1 ([facility]) Respiratory rate 18 /min 18 /min eCW1 ([facility]) Heart rate 90 /min 90 /min eCW1 ([facility]) Body mass index (BMI) [Ratio] 48.14 kg/m2 48.14 kg/m2 eCW1 ([facility]) Body height [in_us] eCW1 ([facility]) Body weight Measured 375 [lb_av] 375 [lb_av] eC W1 ([facility]) Patient Treatment Plan of Care Planned Activity Planned Date Details Description Data Source (s) Sucralfate 1000 MG Oral Tablet [Carafate] 03/10/2019 12:00:00 AM ES T eCW1 ([facility])
[2020-03-31] MEDS ORDERED: CIPROFLOXACIN/D5W 400 MG/200 ML BAG (J0744) As Ordered ONE (10:59)
[2020-03-31] MEDS ORDERED: metroNIDAZOLE/NACL 500MG(5MG/ML) 100ML BAG (S0030) As Ordered ONE (11:00)
[2020-03-31] MEDS ORDERED: propofoL 200 MG/20 ML VIAL As Ordered ONE ×2 (11:02→11:29)
[2020-03-31] MEDS ORDERED: LIDOCAINE 2% 100MG/5ML SDV (FOR ANES.) As Ordered ONE (11:02)
[2020-03-31] MEDS ORDERED: ROCURONIUM BROMIDE 50 MG/5 ML VIAL As Ordered ONE ×3 (11:02→12:28)
[2020-03-31] MEDS ORDERED: MIDAZOLAM INJ 2MG/2ML VIAL (J2250 PER 1MG) As Ordered ONE (11:03)
[2020-03-31] MEDS ORDERED: BUPIVACAINE HCL 0.25% 30ML VIAL As Ordered ONE (11:04)
[2020-03-31] MEDS ORDERED: LIDOCAINE 1% SDV 30ML VIAL As Ordered ONE (11:04)
[2020-03-31] MEDS ORDERED: ONDANSETRON 4MG/2ML VIAL As Ordered ONE (11:04)
[2020-03-31] MEDS ORDERED: fentaNYL 100 MCG/2 ML INJECTION (J3010) As Ordered ONE ×2 (11:04→11:47)
[2020-03-31] MEDS ORDERED: dexameTHASONE 4 MG/ML 1ML VIAL (J1100 PER 1MG) As Ordered ONE (11:04)
[2020-03-31] MEDS ORDERED: CIPROFLOXACIN 400 MG in IV 1 EA IV ONE (11:15)
[2020-03-31] MEDS ORDERED: metroNIDAZOLE 500 MG in IV 1 EA IV ONE (11:15)
[2020-03-31] MEDS ORDERED: SUGAMMADEX SODIUM 500 MG/5 ML VIAL (BRIDION) As Ordered ONE (12:07)
[2020-03-31] MEDS ORDERED: ACETAMINOPHEN 1000MG 100ML IV BTL (OFIRMEV) (J0131 PER 10MG) As Ordered ONE (12:08)
[2020-03-31] MEDS ORDERED: LR 1,000 ML IV SCH ×3 (13:27→15:00)
[2020-03-31] MEDS ORDERED: ONDANSETRON 4MG/2ML VIAL IV PRN ×3 (13:30→15:00)
[2020-03-31] MEDS ORDERED: ACETAMINOPHEN TAB 650MG DOSE (2X325MG) PO PRN (13:30)
[2020-03-31] MEDS ORDERED: PERCOCET 5MG/325MG TAB PO PRN (13:30)
[2020-03-31] MEDS ORDERED: KETOROLAC 30 MG/ML 1ML VIAL IV PRN (13:30)
[2020-03-31] MEDS ORDERED: oxyCODONE 5MG TAB As Ordered ONE (13:45)
[2020-03-31] MEDS ORDERED: oxyCODONE 5MG TAB PO PRN ×2 (14:00→15:00)
[2020-03-31] MEDS ORDERED: METOCLOPRAMIDE INJ 10MG/2ML VIAL (J2765 PER 1) IV PRN ×2 (14:00→15:00)
[2020-03-31] MEDS ORDERED: fentaNYL 100 MCG/2 ML INJECTION (J3010) IV PRN ×2 (14:00→15:00)
[2020-03-31] MEDS ORDERED: MEPERIDINE INJ 25 MG/ML VIAL (J2175) IV PRN ×2 (14:00→15:00)
--- NOTE | 2020-03-31 20:06 | ROOPDOC ---
[facility] Report Of Operation Report of Operation DATE OF PROCEDURE: 03/31/20 PREPROCEDURE DIAGNOSES: history of appendicitis with perforation and abscess. POSTPROCEDURE DIAGNOSES: same. PROCEDURE: interval laparoscopic appendectomy. SURGEON: Cierra Escudero MD EHR TRAINER: ANESTHESIA: General Anesthesia. ESTIMATED BLOOD LOSS: Approximately 50 mL. COMPLICATIONS: none. REMARKS: . PROCEDURE NOTE: . DESCRIPTION OF PROCEDURE: Patient has been given a dose of ciprofloxacin 400 mg IV and metronidazole 500 mg IV preoperatively.Patient was brought to the operating room, placed supine on the table. Sequential compression device placed for DVT prophylaxis. General endotracheal anesthesia started. The abdomen prepped and draped in usual sterile fashion. After a surgical timeout, we began our surgery Entry into the abdomen done through an incision over the left upper quadrant area. He had a previous infraumbilical location of his abscess and anticipate some adhesions from this.. Veress needle inserted on a controlled fashion. Intra-abdominal placement confirmed with saline drop technique. CO2 insufflation started to a pressure of 15 mmHg. Using the same incision a 5 mm port was placed under direct vision of laparoscope. A regular length 5 mm port is down to its hub and inserted intraperitoneally given his body habitus. Insertion site was inspected for injury and none was found. He was placed on a Trendelenburg position the right side tilted to allow for better visualization of the appendix. On initial diagnostic laparoscopy, there were no adhesions to the anterior abdominal wall around the umbilicus. Thus I placed another 5 mm port just above the umbilicus and a bariatric 5 mm port at the left side of the abdomen along the umbilical line. Initially using this 3 reports there were flimsy adhesions over the right lower quadrant which was lysed. I changed my 5 mm left upper quadrant port to a bariatric port for better instrument motion. With the camera over the left upper quadrant area, it was hard to see laterally. I switched camera over the umbilical port and I placed another 8 mm trocar at the supraumbilical area. There were no appendix or visible. I traced the course of the small bowel to the terminal ileum. There is some fullness behind the terminal ileum. There is another loop of small bowel lateral to this that is adhered to the lateral abdominal wall before it dives back down to that final bowel loops going into the terminal ileum. I freed this loop of bowel from the abdominal wall using Harmonic scalpel. I continued freeing up the lateral attachments of the cecum to try and see if this is a retrocecal appendix. Still the appendix wasn't visible. I then carefully and bluntly dissected in between the 2 loops of small bowel cl ose to the lower border of the cecum and just behind the terminal ileum where there was notable fullness and thickening behind. I eventually came to the abscess pocket. There were no purulent material leftover but couple of fecaliths was leftover was noted. I was able to expose the lower medial end of the cecum. This feels hardened and chronically inflamed. I did not see any fistulous opening to the cecum. Following the abscess pocket distally the left over appendix is noted. This was healthy still and only connected by. The mesoappendix. The mesoappendix was divided with the harmonic scalpel detaching the left over appendix. After this I examined the base of the cecum. The base appears hardened. The attachments of the appendix where it perforated is chronically inflamed but I do not see any noticeable opening into the cecum and the tissues are hardened. There is no healthy stump that I could see, just the inflamed and hardened wall of the cecum. Also this is right next to the insertion of the terminal ileum which is secodarily involved. So there is no space between the TI insertion and base of the appendix/cecum that I could staple close securely. I debrided the thickened tissues at the base of the cecum and there are some remnant tissue of the appendix. I grabbed this and tied it off with a Loop PDS which seem to hold but the tissues are inflamed. And watching for several minutes to see if there is any leakage of stool contents or factors anyway to take a little portion of the cecum to securely close this. Short of a ileocecal ileocecectomy, there does not appear to be any way to get to unexplained tissues. Given that the perforat ions more than a month old and there is no clear fistula, I think the opening of the appendix to the cecum has already closed. I chose to leave a drain in a threaded this through and pulled it through the left lower quadrant port. The remnant of the appendix was placed in an Endo Catch bag and retrieved through the 8 mm port site which was slightly enlarged. I closed this incision with a Shade Zamora device with 0 Vicryl. The abdominal cavity over the right lower quadrant area was thoroughly irrigated v isible irrigant were suctioned off including that above the liver. The abdomen was then deflated all ports removed. The drain secured to the skin. All incisions closed with 4-0 Monocryl in subcuticular fashion. Steri-Strips and gauze dressing then placed. Patient tolerated the procedure well and was promptly awakened, extubated and brought to recovery room in stable condition. CIERRA ESCUDERO MD Mar 31, 2020 20:06
[2020-03-31] MEDS: metroNIDAZOLE 500 MG in IV 1 EA IV SCH (20:23)
[2020-03-31] MEDS: PERCOCET 5MG/325MG TAB PO PRN (21:40)
[2020-03-31] MEDS: CIPROFLOXACIN 400 MG in IV 1 EA IV SCH (23:15)
[2020-04-01] MEDS ORDERED: UNRESOLVED CLARIFICATION ENTRY XX SCH (00:01)
[2020-04-01 00:30] VITALS: BP 119/77
[2020-04-01] MEDS: PERCOCET 5MG/325MG TAB PO PRN (02:45)
[2020-04-01] MEDS: metroNIDAZOLE 500 MG in IV 1 EA IV SCH ×2 (03:58→12:00)
[2020-04-01 04:30] VITALS: BP 120/76
[2020-04-01 06:00] VITALS: BP 121/81
[2020-04-01 08:15] LABS: BASO % 0.2 % (0.0-1.0); EOS % 0.1 % (0.0-3.0); HEMATOCRIT 39.2 % (42.0-52.0); HEMOGLOBIN 12.6 g/dl (13.5-17.5); LYMPH # 1.6 10^3/uL (1.5-5.0); LYMPH % 11.7 % (24.0-44.0); MEAN CORPUSCULAR HEMOGLOBIN 28.7 pg (27.0-33.0); MEAN CORPUSCULAR HGB CONC 32.1 g/dl (32.0-36.5); MEAN CORPUSCULAR VOLUME 89.3 fl (80.0-96.0); MONO # 1.1 10^3/uL (0.0-0.8); MONO % 8.3 % (0.0-5.0); NEUTROPHILS # 10.6 10^3/uL (1.5-8.5); NEUTROPHILS % 79.2 % (36.0-66.0); PLATELET COUNT, AUTOMATED 227 10^3/uL (150-450); RED BLOOD COUNT 4.39 10^6/uL (4.30-6.10); WHITE BLOOD COUNT 13.4 10^3/uL (4.0-10.0)
[2020-04-01 08:30] LABS: BLOOD UREA NITROGEN 10 MG/DL (7-18); CALCIUM LEVEL 8.6 MG/DL (8.5-10.1); CARBON DIOXIDE LEVEL 25 MEQ/L (21-32); CHLORIDE LEVEL 103 MEQ/L (98-107); CREATININE FOR GFR 0.68 MG/DL (0.70-1.30); GLOMERULAR FILTRATION RATE > 60.0 (>60); GLUCOSE, FASTING 99 MG/DL (70-100); POTASSIUM SERUM 3.9 MEQ/L (3.5-5.1); SODIUM LEVEL 138 MEQ/L (136-145)
[2020-04-01] MEDS ORDERED: METR375C3 PO (09:51)
[2020-04-01] MEDS ORDERED: CIPR-249 PO (09:51)
[2020-04-01 10:00] VITALS: BP 121/66
[2020-04-01 10:53] VITALS: O2SAT 95
[2020-04-01] MEDS: CIPROFLOXACIN 400 MG in IV 1 EA IV SCH (11:00)
== END 2020-04-01 13:46 | disposition home or self-care (01) ==
LOC: M SDC 10:36 → M MSPAV 14:36 → M SDC 04-01 13:46
PROVIDERS: ATTEND Surgery
DX: K35.21 Acute appendicitis with generalized peritonitis, with abscess (principal); J45.909 Unspecified asthma, uncomplicated; I45.6 Pre-excitation syndrome; G47.30 Sleep apnea, unspecified; E66.01 Morbid (severe) obesity due to excess calories; F17.210 Nicotine dependence, cigarettes, uncomplicated; I49.9 Cardiac arrhythmia, unspecified; Z68.42 Body mass index [BMI] 45.0-49.9, adult; Z88.0 Allergy status to penicillin; Z88.1 Allergy status to other antibiotic agents; Z88.2 Allergy status to sulfonamides
CPT/HCPCS: 36415; 44970; 80048; 85025; 88304; 96374; 96375; J0131; J0744; J1100; J1885; J2250; J2405; J3010

== ENCOUNTER 2020-10-19 14:14 | Emergency (ER) | payer BC ==
[~2020-10-19] VITALS: Ht 182.9 cm; Wt 170.5 kg
[~2020-10-19 14:14] MED LIST changes: +CIPR-249 PO; -CelecoXIB (CeleBREX) 100 MG CAP PO ONE; -KETOROLAC 60MG 2ML VIAL As Ordered ONE; -LR 1,000 ML IV ONE; +METR375C3 PO; -SIME40TA PO; +SIME80CH6 PO; -SUGAMMADEX SODIUM 500 MG/5 ML VIAL (BRIDION) As Ordered ONE
[2020-10-19 16:52] LABS: BASO # 0.1 10^3/uL (0.0-0.2); BASO % 0.6 % (0.0-1.0); EOS # 0.2 10^3/uL (0.0-0.5); EOS % 1.6 % (0.0-3.0); HEMATOCRIT 40.8 % (42.0-52.0); HEMOGLOBIN 13.2 g/dl (13.5-17.5); LYMPH # 2.2 10^3/uL (1.5-5.0); LYMPH % 23.7 % (24.0-44.0); MEAN CORPUSCULAR HEMOGLOBIN 29.3 pg (27.0-33.0); MEAN CORPUSCULAR HGB CONC 32.4 g/dl (32.0-36.5); MEAN CORPUSCULAR VOLUME 90.5 fl (80.0-96.0); MONO # 0.9 10^3/uL (0.0-0.8); MONO % 10.1 % (2.0-8.0); NEUTROPHILS # 5.8 10^3/uL (1.5-8.5); NEUTROPHILS % 63.1 % (36.0-66.0); PLATELET COUNT, AUTOMATED 232 10^3/uL (150-450); RED BLOOD COUNT 4.51 10^6/uL (4.30-6.10); WHITE BLOOD COUNT 9.3 10^3/uL (4.0-10.0)
--- NOTE | 2020-10-19 17:08 | REP ---
INDICATION: r/o abd wall abscess to RLQ. COMPARISON: None. TECHNIQUE: Real-time sonographic evaluation of the superficial right lower quadrant and abdominal wall over air ith Priscila DIS skin and a small palpable lump FINDINGS: The sonographic images provided show a subcutaneous slightly irregular mixed echo but nearly anechoic 2 x 0.8 x 2.5 cm sized well demarcated area. Color Doppler shows no internal blood flow. IMPRESSION: Abnormal mixed somewhat complex probable fluid collection as described above. A developing abscess cannot be ruled out. <Electronically signed by Jose Antonio Rios > 10/19/20 [id number]
[2020-10-19 17:26] LABS: BLOOD UREA NITROGEN 13 MG/DL (7-18); CALCIUM LEVEL 8.6 MG/DL (8.5-10.1); CARBON DIOXIDE LEVEL 28 MEQ/L (21-32); CHLORIDE LEVEL 108 MEQ/L (98-107); CREATININE FOR GFR 0.72 MG/DL (0.70-1.30); GLOMERULAR FILTRATION RATE > 60.0 (>60); GLUCOSE, FASTING 79 MG/DL (70-100); POTASSIUM SERUM 4.4 MEQ/L (3.5-5.1); SODIUM LEVEL 140 MEQ/L (136-145)
[2020-10-19] MEDS ORDERED: CLINDAMYCIN 900 MG in IV 1 EA IV ONE (17:40)
[2020-10-19] MEDS ORDERED: DOXY-342 PO (18:12)
[2020-10-19 18:59] VITALS: BP 152/88
--- NOTE | 2020-10-23 13:07 | ED PDOC ---
Post-Departure Follow-Up abdominal us faxed to [facility] for William Chisholm MD Oct 23, 2020 13:07
== END 2020-10-19 19:05 | disposition home or self-care (01) ==
LOC: M ED 14:14
DX: L03.311 Cellulitis of abdominal wall (principal); J45.909 Unspecified asthma, uncomplicated; M32.9 Systemic lupus erythematosus, unspecified; K21.9 Gastro-esophageal reflux disease without esophagitis; I25.10 Atherosclerotic heart disease of native coronary artery without angina pectoris; G47.33 Obstructive sleep apnea (adult) (pediatric); Z79.899 Other long term (current) drug therapy; Z88.0 Allergy status to penicillin; Z88.1 Allergy status to other antibiotic agents; Z88.2 Allergy status to sulfonamides; F17.210 Nicotine dependence, cigarettes, uncomplicated

== ENCOUNTER 2020-10-21 15:10 | Emergency (ER) | payer BC ==
[~2020-10-21] VITALS: Ht 182.9 cm; Wt 162.8 kg
[~2020-10-21 15:10] MED LIST changes: +DOXY-342 PO
[2020-10-21 17:00] VITALS: BP 136/96
== END 2020-10-21 17:05 | disposition home or self-care (01) ==
LOC: M ED 15:10
DX: Z04.89 Encounter for examination and observation for other specified reasons (principal); R03.0 Elevated blood-pressure reading, without diagnosis of hypertension; G47.33 Obstructive sleep apnea (adult) (pediatric); Z79.899 Other long term (current) drug therapy; Z79.2 Long term (current) use of antibiotics

== ENCOUNTER → 2021-01-03 | Outpatient (CLI) | payer BC | LOC: M LABSMTC 11:00 | PROVIDERS: ATTEND Family Medicine | DX: Z20.822 Contact with and (suspected) exposure to COVID-19 (principal) | CPT/HCPCS: C9803; U0003 ==

== ENCOUNTER → 2021-06-21 | Outpatient (CLI) | payer BC ==
[2021-06-21 15:21] LABS: APPEARANCE, URINE CLEAR (CLEAR); BACTERIA, URINE AUTO NEGATIVE (NEGATIVE); BASO # 0.1 10^3/uL (0.0-0.2); BASO % 0.6 % (0.0-1.0); BILIRUBIN, URINE AUTO NEGATIVE (NEGATIVE); BLOOD, URINE BLOOD NEGATIVE (NEGATIVE); COLOR, URINE YELLOW (YELLOW); EOS # 0.1 10^3/uL (0.0-0.5); EOS % 1.4 % (0.0-3.0); GLUCOSE, URINE (UA) AUTO NEGATIVE (NEGATIVE); HEMATOCRIT 45.2 % (42.0-52.0); HEMOGLOBIN 14.9 g/dl (13.5-17.5); KETONE, URINE AUTO NEGATIVE (NEGATIVE); LEUKOCYTE ESTERASE, URINE AUTO NEGATIVE (NEGATIVE); LYMPH # 2.5 10^3/uL (1.5-5.0); LYMPH % 30.9 % (24.0-44.0); MEAN CORPUSCULAR HEMOGLOBIN 29.9 pg (27.0-33.0); MEAN CORPUSCULAR VOLUME 90.6 fl (80.0-96.0); MONO # 0.7 10^3/uL (0.0-0.8); MONO % 9.3 % (2.0-8.0); MUCUS, URINE SMALL (NEGATIVE); NEUTROPHILS # 4.6 10^3/uL (1.5-8.5); NEUTROPHILS % 57.3 % (36.0-66.0); NITRITE, URINE AUTO NEGATIVE (NEGATIVE); PLATELET COUNT, AUTOMATED 214 10^3/uL (150-450); PROTEIN, URINE AUTO NEGATIVE (NEGATIVE); RBC, URINE AUTO 0 /HPF (0-3); RED BLOOD COUNT 4.99 10^6/uL (4.30-6.10); SPECIFIC GRAVITY URINE AUTO 1.024 (1.002-1.035); SQUAMOUS EPITHELIAL CELL UR AU 0 /HPF (0-6); UROBILINOGEN, URINE AUTO 0.2 mg/dL (0.0-2.0); WBC, URINE AUTO 1 /HPF (0-3)
[2021-06-21 15:44] LABS: ALT/SGPT 36 U/L (12-78); AMYLASE 53 U/L (25-115); BILIRUBIN,TOTAL 0.9 MG/DL (0.2-1.0); BLOOD UREA NITROGEN 11 MG/DL (7-18); CARBON DIOXIDE LEVEL 29 MEQ/L (21-32); CHLORIDE LEVEL 106 MEQ/L (98-107); CREATININE FOR GFR 0.66 MG/DL (0.70-1.30); GLOMERULAR FILTRATION RATE > 60.0 (>60); GLUCOSE, FASTING 80 MG/DL (70-100); LIPASE 105 U/L (73-393); POTASSIUM SERUM 4.3 MEQ/L (3.5-5.1); SODIUM LEVEL 142 MEQ/L (136-145); TOTAL PROTEIN 7.5 GM/DL (6.4-8.2)
== END ==
LOC: M PLALAB 12:25
PROVIDERS: ATTEND Physician Assistant
DX: R10.9 Unspecified abdominal pain (principal)

== ENCOUNTER → 2021-06-28 | Outpatient (CLI) | payer BC ==
[~2021-06-28] MED LIST changes: +GASTROGRAFIN SOLUTION 30ML (Q9963) As Ordered ONE; +ISOVUE-370 76% 100ML VIAL As Ordered ONE
== END ==
LOC: M RAD 14:02
PROVIDERS: ATTEND Physician Assistant
DX: R10.9 Unspecified abdominal pain (principal)
CPT/HCPCS: 74177; Q9963; Q9967

== ENCOUNTER → 2021-09-30 | Outpatient (CLI) | payer BC ==
[~2021-09-30] MED LIST changes: -GASTROGRAFIN SOLUTION 30ML (Q9963) As Ordered ONE; -ISOVUE-370 76% 100ML VIAL As Ordered ONE
== END ==
LOC: M LABSMTC 09:21
PROVIDERS: ATTEND Anesthesiology
DX: Z01.812 Encounter for preprocedural laboratory examination (principal); Z20.822 Contact with and (suspected) exposure to COVID-19

== ENCOUNTER 2021-10-04 12:26 | Day surgery (SDC) | payer BC ==
[~2021-10-04] VITALS: Ht 182.9 cm; Wt 170.1 kg
[~2021-10-04 12:26] MED LIST changes: +NS 1,000 ML IV ONE
[2021-10-04] MEDS ORDERED: propofoL 200 MG/20 ML VIAL As Ordered ONE ×3 (14:58→15:45)
[2021-10-04 16:17] VITALS: BP 118/76
== END 2021-10-04 16:20 | disposition home or self-care (01) ==
LOC: M OPP 12:26
PROVIDERS: ATTEND Surgery
DX: R10.30 Lower abdominal pain, unspecified (principal); K63.5 Polyp of colon; K21.9 Gastro-esophageal reflux disease without esophagitis; J45.909 Unspecified asthma, uncomplicated; G47.33 Obstructive sleep apnea (adult) (pediatric); F17.210 Nicotine dependence, cigarettes, uncomplicated; Z88.0 Allergy status to penicillin; Z88.1 Allergy status to other antibiotic agents; Z88.2 Allergy status to sulfonamides; Z79.899 Other long term (current) drug therapy; Z83.3 Family history of diabetes mellitus

== ENCOUNTER → 2023-05-14 | Outpatient (CLI) | payer BC ==
[~2023-05-14] MED LIST changes: -DOXY-342 PO; +DOXY100C82 PO; -NS 1,000 ML IV ONE
== END ==
LOC: M PLAIMG 09:04
PROVIDERS: ATTEND Nurse Practitioner Adult Health
DX: R06.02 Shortness of breath (principal)

== ENCOUNTER → 2023-05-15 | Outpatient (CLI) | payer BC ==
[2023-05-15 11:41] LABS: HEMATOCRIT 45.4 % (42.0-52.0); HEMOGLOBIN 15.1 g/dl (13.5-17.5); MEAN CORPUSCULAR HEMOGLOBIN 30.1 pg (27.0-33.0); MEAN CORPUSCULAR HGB CONC 33.3 g/dl (32.0-36.5); MEAN CORPUSCULAR VOLUME 90.4 fl (80.0-96.0); PLATELET COUNT, AUTOMATED 229 10^3/uL (150-450); RED BLOOD COUNT 5.02 10^6/uL (4.30-6.10); WHITE BLOOD COUNT 10.8 10^3/uL (4.0-10.0)
[2023-05-15 12:11] LABS: ALBUMIN 3.9 G/DL (3.2-5.2); ALKALINE PHOSPHATASE 63 U/L (46-116); ALT/SGPT 38 U/L (7.0-40); AST/SGOT 16 U/L (<34); BILIRUBIN,TOTAL 1.2 MG/DL (0.3-1.2); BLOOD UREA NITROGEN 10 MG/DL (9-23); CALCIUM LEVEL 8.8 MG/DL (8.5-10.1); CARBON DIOXIDE LEVEL 27 MMOL/L (20-31); CHLORIDE LEVEL 104 MMOL/L (98-107); CHOLESTEROL LEVEL 201 MG/DL (<200); CREATININE FOR GFR 0.69 MG/DL (0.70-1.30); GLOMERULAR FILTRATION RATE > 60.0 (>60); GLUCOSE, FASTING 69 MG/DL (60-100); HDL CHOLESTEROL 46.7 MG/DL (>40); LDL CHOLESTEROL 135.5 MG/DL (<100); NON-HDL-C 154.3 MG/DL; POTASSIUM SERUM 4.1 MMOL/L (3.5-5.1); SODIUM LEVEL 137 MMOL/L (136-145); TOTAL PROTEIN 7.1 G/DL (5.7-8.2); TRIGLYCERIDES LEVEL 94 MG/DL (<150)
[2023-05-15 12:33] LABS: HEMOGLOBIN A1c 5.7 % (4.0-6.0)
== END ==
LOC: M PLALAB 08:21
PROVIDERS: ATTEND Nurse Practitioner Adult Health
DX: K76.0 Fatty (change of) liver, not elsewhere classified (principal); E66.01 Morbid (severe) obesity due to excess calories

== ENCOUNTER 2024-01-02 16:26 | Emergency (ER) | payer BC ==
[~2024-01-02] VITALS: Ht 182.9 cm; Wt 166.0 kg
[2024-01-02 16:29] VITALS: TEMP 96.2
[2024-01-02 17:42] LABS: BASO # 0.1 10^3/uL (0.0-0.2); BASO % 0.8 % (0.0-1.0); EOS # 0.1 10^3/uL (0.0-0.5); EOS % 1.8 % (0.0-3.0); HEMATOCRIT 41.5 % (42.0-52.0); LYMPH # 2.3 10^3/uL (1.5-5.0); LYMPH % 28.8 % (24.0-44.0); MEAN CORPUSCULAR HEMOGLOBIN 30.2 pg (27.0-33.0); MEAN CORPUSCULAR HGB CONC 33.7 g/dl (32.0-36.5); MEAN CORPUSCULAR VOLUME 89.6 fl (80.0-96.0); MONO # 0.7 10^3/uL (0.0-0.8); MONO % 9.3 % (2.0-8.0); NEUTROPHILS # 4.7 10^3/uL (1.5-8.5); NEUTROPHILS % 58.9 % (36.0-66.0); PLATELET COUNT, AUTOMATED 228 10^3/uL (150-450); RED BLOOD COUNT 4.63 10^6/uL (4.30-6.10)
[2024-01-02 17:46] LABS: LIPASE 33 U/L (12-53)
[2024-01-02 17:47] LABS: CPK CREATINE PHOSPHOKINASE 117 U/L (46-171)
[2024-01-02 17:48] LABS: ALBUMIN 3.6 G/DL (3.2-5.2); ALKALINE PHOSPHATASE 73 U/L (40-129); ALT/SGPT 24 U/L (7.0-40); AST/SGOT 11 U/L (<34); BILIRUBIN,DIRECT 0.2 MG/DL (<0.4); BILIRUBIN,TOTAL 0.8 MG/DL (0.3-1.2); BLOOD UREA NITROGEN 11 MG/DL (9-23); CALCIUM LEVEL 9.2 MG/DL (8.5-10.1); CARBON DIOXIDE LEVEL 26 MMOL/L (20-31); CHLORIDE LEVEL 106 MMOL/L (98-107); CK-MB VALUE MASS < 1.0 NG/ML (<3.6); CREATININE FOR GFR 0.61 MG/DL (0.70-1.30); GLOMERULAR FILTRATION RATE > 60.0 (>60); GLUCOSE, FASTING 85 MG/DL (60-100); MB/CK RELATIVE INDEX 0.85 (< OR =4); SODIUM LEVEL 138 MMOL/L (136-145)
[2024-01-02 17:49] LABS: THYROID STIMULATING HORMONE 1.149 uIU/ML (0.55-4.78)
[2024-01-02] MEDS ORDERED: ISOVUE-370 76% 100ML VIAL As Ordered ONE (18:08)
[2024-01-02 18:37] LABS: CK-MB VALUE MASS < 1.0 NG/ML (<3.6)
[2024-01-02 18:39] LABS: CPK CREATINE PHOSPHOKINASE 112 U/L (46-171); MB/CK RELATIVE INDEX 0.89 (< OR =4)
[2024-01-02 18:45] VITALS: BP 98/56; O2SAT 98
== END 2024-01-02 19:00 | disposition home or self-care (01) ==
LOC: M ED 16:26
DX: R07.9 Chest pain, unspecified (principal); G47.33 Obstructive sleep apnea (adult) (pediatric); F17.200 Nicotine dependence, unspecified, uncomplicated; Z79.899 Other long term (current) drug therapy; Z88.0 Allergy status to penicillin; Z88.2 Allergy status to sulfonamides
CPT/HCPCS: 71045; 71275; 80048; 80076; 82550; 82553; 83690; 84443; 84484; 85025; 93005; 93041; 94760; 99285; Q9967

== ENCOUNTER → 2025-01-25 | Outpatient (REF) | payer BC ==
[~2025-01-25] MED LIST changes: +DOXY-442 PO; -DOXY100C82 PO; -LEVO750T14 PO; +LEVO75TAB PO
== END ==
LOC: M SFHCDERM 16:48
PROVIDERS: ATTEND Physician Assistant
DX: L73.2 Hidradenitis suppurativa (principal)